=== PATIENT | male | born 1940 | race Caucasian/White ===

== ENCOUNTER 2020-05-17 09:48 | Outpatient (CLI) | payer MEDICARE, SELFPAY | END 2020-05-17 09:49 | disposition home or self-care (01) | LOC: ANHCOVIDVC 09:48 | PROVIDERS: PCP Internal Medicine | DX: Z23 Encounter for immunization (principal) | CPT/HCPCS: 0001A; 91300 ==

== ENCOUNTER 2020-06-07 09:47 | Outpatient (CLI) | payer MEDICARE, SELFPAY | END 2020-06-07 09:48 | disposition home or self-care (01) | LOC: ANHCOVIDVC 09:47 | PROVIDERS: PCP Internal Medicine | DX: Z23 Encounter for immunization (principal) | CPT/HCPCS: 0002A; 91300 ==

== ENCOUNTER 2020-07-09 12:57 | Outpatient (CLI) | payer MEDICARE, SELFPAY | END 2020-07-09 12:58 | disposition home or self-care (01) | LOC: ANHAUDIO 12:58 | PROVIDERS: PCP Internal Medicine; Visit Provider Otolaryngology | DX: H90.42 Sensorineural hearing loss, unilateral, left ear, with unrestricted hearing on the contralateral side (principal) | CPT/HCPCS: 92557; 92567 ==

== ENCOUNTER 2021-10-03 14:26 | Outpatient (CLI) | payer MEDICARE, SELFPAY ==
--- NOTE | 2021-10-03 14:40 | ECHO_ITS ---
Patient Info Name: Hubert Finnegan Age: 81 years : 1940 Gender: Male Ht: 70 in Wt: 170 lbs BSA: 1.96 m2 HR: 71 bpm BP: 133 / 54 mmHg Technical Quality: Good Exam Date: 10/03/2021 2:55 PM Exam Location: [facility] Patient Status: Outpatient Admit Date: 10/03/2021 Staff Ordering Physician: Guillermo Chappell DO Sales Advisor: Nata Garduno RDCS Attending Provider: Guillermo Chappell DO Referring Physician: Ta BURCH; Exam Type: CA echo doppler color flow Study Info Indications I35.0 - Nonrheumatic aortic (valve) stenosis Complete two-dimensional, color flow and Doppler transthoracic echocardiogram is performed. Summary 1. Complete two-dimensional, color flow and Doppler transthoracic echocardiogram is performed. 2. Left ventricular chamber dimension is normal. 3. Left ventricular systolic function is normal, estimated at 65-70%. 4. The left ventricular diastolic function is grade I diastolic dysfunction. 5. E/e' 14 is mildly elevated. 6. Global longitudinal strain is normal at -17.3%. 7. Left atrial chamber dimension is severely enlarged. 8. There is moderate aortic valve sclerosis. 9. There is mild aortic valve stenosis with a peak velocity of 230 cm/s, mean gradient of 11 mmHg, and aortic valve area of 1.8 cm2. 10. There is mild mitral valve regurgitation. 11. There is mild tricuspid valve regurgitation. 12. No pulmonary hypertension, estimated pulmonary arterial systolic pressure is 36 mmHg. Left Ventricle E/e' 14 is mildly elevated. Global longitudinal strain is normal at -17.3%. Left ventricular chamber dimension is normal. Left ventricular systolic function is normal, estimated at 65-70%. The left ventricular diastolic function is grade I diastolic dysfunction. Right Ventricle Right ventricular systolic function is normal and with normal TAPSE 2.5 cm. Right ventricular chamber dimension is normal. Left Atria Left atrial chamber dimension is severely enlarged. Right Atria Right atrial chamber dimension is normal. Aortic Valve The aortic valve is trileaflet. There is moderate aortic valve sclerosis. There is mild aortic valve stenosis with a peak velocity of 230 cm/s, mean gradient of 11 mmHg, and aortic valve area of 1.8 cm2. There is trace aortic valve regurgitation. Pulmonic Valve There is no pulmonic regurgitation. Mitral Valve There is no mitral valve stenosis. There is mild mitral valve regurgitation. Tricuspid Valve There is mild tricuspid valve regurgitation. No pulmonary hypertension, estimated pulmonary arterial systolic pressure is 36 mmHg. Pericardium/Pleural There is no pericardial effusion. Inferior Vena Cava Normal inferior vena cava with >50% collapse upon inspiration consistent with normal right atrial pressure, 5 mmHg. Aorta The aortic root size at the sinus of Valsalva is normal. Left Ventricular Outflow Tract Name Value Normal LVOT 2D LVOT Diameter 2.0 cm LVOT Doppler LVOT Peak Gradient 7 mmHg LVOT Mean Gradient 4 mmHg LVOT VTI 30 cm LVOT VT
== END 2021-10-03 14:27 | disposition home or self-care (01) ==
PROVIDERS: PCP Internal Medicine; Visit Provider Internal Medicine Cardiovascular Disease
DX: I35.1 Nonrheumatic aortic (valve) insufficiency (principal); I36.1 Nonrheumatic tricuspid (valve) insufficiency; I34.0 Nonrheumatic mitral (valve) insufficiency
CPT/HCPCS: 93306

== ENCOUNTER 2022-05-07 00:44 | Day surgery (SDC) | payer MEDICARE, SELFPAY ==
[2022-05-06 15:14] VITALS: BMI 24.4
--- NOTE | ~2022-05-07 | BM_ITS ---
EXAMINATION: CCL bone marrow asp w bx diag DATE: 05/07/2022 10:31 INDICATION: Multiple myeloma with relapse. TECHNIQUE: A time-out was performed to verify the patient's name, date of , and procedure to b e performed. The procedure including the risks, benefits, and alternatives was discussed with the pat ient. Risks discussed included bleeding and infection. The patient understood the risks and agreed to proceed. The skin overlying the left ilium was prepped and draped in usual sterile fashion. Anesth etic was administered with 1% lidocaine subcutaneously. Moderate sedation was achieved with 1 mg Vers ed IV and 50 mg fentanyl IV. An 11 gauge needle was inserted into the ilium with fluoroscopic guidan ce. Bone marrow was aspirated. An 8 gauge needle was then inserted into the ilium with fluoroscopic g uidance. A core bone marrow biopsy was obtained. There were no immediate complications. Fluoroscopy e xposure time was 0.0 minutes. The total number of images was 8. FINDINGS: Real-time fluoroscopy demonstrates a marker overlying the left posterior superior iliac spi ne. IMPRESSION: 1. Fluoro-guided bone marrow aspiration. 2. Fluoro-guided bone marrow core biopsy. Reviewed, dictated and finalized at location A. [facility]
[2022-05-07 09:10] VITALS: BP 152/66; PULSE 67; RESP 12; TEMP 36.6; O2SAT 99; BMI 22.4
[2022-05-07 09:12] LABS: Basophils Percent Auto 0.6 % (0.2-1.2); Eosinophils Absolute Auto 0.2 K/mm3 (0-0.3); Eosinophils Percent Auto 2.2 % (0-4.4); Hematocrit 22.7 % (42.0-52.0); Hemoglobin 7.4 g/dL (14.0-18.0); Immature Granulocyte Absolute 0.02 K/mm3 (0.00-0.031); Immature Granulocyte Percent A 0.3 % (0-0.5); Immature Platelet Fraction Pct 5.6 % (0.9-11.2); Lymphocytes Percent Auto 20.5 % (18.3-44.2); Mean Corpuscular HGB Conc 32.6 g/dl (32-36); Mean Corpuscular Hemoglobin 29.7 pg (26-34); Mean Corpuscular Volume 91.2 fl (80-100); Mean Platelet Volume 11.5 fl (7.4-10.4); Monocytes Absolute Auto 0.8 K/mm3 (0.1-0.6); Monocytes Percent Auto 11.1 % (2.6-8.5); Neutrophils Absolute Auto 4.5 K/mm3 (1.3-6.7); Neutrophils Percent Auto 65.3 % (45.5-73.1); Platelet Count Result 96 k/mm3 (150-375); Red Blood Count 2.49 M/mm3 (4.6-6.20); Red Cell Distribution Width 13.8 % (11.5-14.5); White Blood Count 6.8 K/mm3 (4.5-10.0)
[2022-05-07 09:24] LABS: INR 1.1; Prothrombin Time 13.5 Seconds (11.1-14.7)
--- NOTE | 2022-05-07 09:40 | WPDMODSED ---
Moderate Sedation Note-Pt Data Patient Data Diagnosis: Multiple myeloma. Present Complaint: Multiple myeloma. Procedure to be performed/Plan: Fluoro-guided bone marrow biopsy of ilium. Allergies Allergy/AdvReac Type Severity Reaction Status Date / Time pioglitazone Allergy Mild rash Verified 05/07/22 09:08 latex Allergy Unknown Verified 05/07/22 09:08 Sulfa (Sulfonamide Allergy Rash Verified 05/07/22 09:08 Antibiotics) Home Medications Medication Instructions Recorded Confirmed Type oxybutynin chloride 15 mg 15 mg PO DAILY 03/29/19 05/06/22 History tablet,extended release 24 hr ascorbate calcium (vitamin C) 500 500 mg PO DAILY 04/04/19 05/06/22 History mg tablet multivitamin 1 tablet PO DAILY 04/04/19 05/06/22 History cholecalciferol (vitamin D3) 50 2,000 unit PO DAILY 10/11/19 05/06/22 History mcg (2,000 unit) capsule latanoprost 0.005 % eye drops 1 drop ophthalmic (eye) QPM 10/11/19 05/06/22 History leuprolide 7.5 mg (1 month) See Rx Instructions .Route .COMPLEX 06/15/20 05/06/22 History subcutaneous syringe (Eligard) amlodipine 5 mg tablet 5 mg PO DAILY #90 tabs 09/17/20 05/06/22 Rx carvedilol 12.5 mg tablet See Rx Instructions .Route 03/06/21 05/07/22 Rx .COMPLEX #180 tabs pravastatin 10 mg tablet See Rx Instructions .Route 06/10/21 05/06/22 Rx .COMPLEX #90 tabs lisinopril 40 mg tablet See Rx Instructions .Route 01/16/22 05/07/22 Rx .COMPLEX #180 tabs flash glucose sensor (FreeStyle #6 ea 01/21/22 05/06/22 Rx Mark 2 Sensor kit) lancets 33 gauge (OneTouch Delica #100 ea 01/21/22 05/06/22 Rx Lancets) OneTouch Verio test strips (blood #100 ea 01/22/22 05/06/22 Rx sugar diagnostic) glipizide 5 mg tablet 5 mg PO BID 90 days #180 tabs 01/22/22 05/06/22 Rx esomeprazole magnesium 40 mg See Rx Instructions .Route 02/10/22 05/06/22 Rx capsule,delayed release .COMPLEX #90 caps pramipexole 0.125 mg tablet See Rx Instructions .Route 02/10/22 05/06/22 Rx .COMPLEX #90 tabs tramadol 50 mg tablet 50 mg PO BID PRN pain #60 tabs 03/14/22 05/06/22 Rx cyanocobalamin (vitamin B-12) 1,000 mcg PO DAILY 05/06/22 05/06/22 History 1,000 mcg tablet ferrous sulfate 325 mg (65 mg 325 mg PO EVERY OTHER DAY 05/06/22 05/06/22 History iron) tablet (FeroSul) Sedation/Anesthesia: No previous sedation/anesthesia problems (including family history). [facility] Past Medical History Medical History At risk for polypharmacy Bilateral impacted cerumen CKD stage G3a/A3, GFR 45-59 and albumin creatinine ratio >300 mg/g COVID-19 vaccine series completed Diabetes Dietary counseling and surveillance Dyslipidemia Encounter to establish care Essential hypertension Heart disease Heart murmur Hypertension associated with stage 3 chronic kidney disease due to type 2 diabetes mellitus Iron deficiency anemia, unspecified Mixed hyperlipidemia Non-recurrent unilateral inguinal hernia without obstruction or gangrene Osteoarthritis of spine with radiculopathy, lumbar region Pain in left hip Preop cardiovascular exam Prostate cancer screening Pulmonary hypertension RLS (restless legs syndrome) Type 2 diabetes mellitus without complication Surgical History Surgical History History of hernia repair Family History Family History Mother Family history of pancreatic cancer Patient's mother is Family history of malignant neoplasm Diabetes mellitus Hypertension Heart disease Sibling Family history of pancreatic cancer Family history of malignant neoplasm of breast in first degree relative Father Family history of coronary artery disease Cerebrovascular accident Social History Social History Smoking packs per day: 0.5 Smoking cigarettes per day: 10.0 Years smo
[2022-05-07 10:30] VITALS: BP 148/74; PULSE 67; RESP 16; O2SAT 100
[2022-05-07 10:45] VITALS: BP 126/57; PULSE 59; RESP 18; O2SAT 98
[2022-05-07 11:00] VITALS: BP 119/58; PULSE 66; RESP 17; O2SAT 98
[2022-05-07 11:15] VITALS: BP 120/51; PULSE 62; RESP 16; O2SAT 96
[2022-05-07 11:30] VITALS: BP 114/59; PULSE 62; RESP 16; O2SAT 95
== END 2022-05-07 12:08 | disposition home or self-care (01) ==
PROVIDERS: PCP Nurse Practitioner Family; Visit Provider Radiology Diagnostic Radiology
DX: C90.02 Multiple myeloma in relapse (principal); I13.10 Hypertensive heart and chronic kidney disease without heart failure, with stage 1 through stage 4 chronic kidney disease, or unspecified chronic kidney disease; E11.22 Type 2 diabetes mellitus with diabetic chronic kidney disease; N18.31 Chronic kidney disease, stage 3a; D50.9 Iron deficiency anemia, unspecified; E78.2 Mixed hyperlipidemia; G25.81 Restless legs syndrome; I27.20 Pulmonary hypertension, unspecified; Z79.84 Long term (current) use of oral hypoglycemic drugs; Z79.818 Long term (current) use of other agents affecting estrogen receptors and estrogen levels; F17.220 Nicotine dependence, chewing tobacco, uncomplicated
CPT/HCPCS: 36415; 38222; 85025; 85055; 85610; 88184; 88185; 88305; 88311; 88313; 88360; J1642; J2250; J3010; J7040

== ENCOUNTER 2022-06-02 09:30 | Outpatient (CLI) | payer MEDICARE, SELFPAY ==
--- NOTE | ~2022-06-02 | XR_ITS ---
EXAMINATION: BONE SURVEY/METASTATIC SURVEY DATE: 06/02/2022 INDICATION: Multiple myeloma relapse TECHNIQUE: A skeletal survey was performed including AP views of the chest, abdomen and pelvis; AP an d lateral/lateral swimmers views of the cervical, thoracic and lumbar spine; lateral view of the skul l, and AP and lateral views of the appendicular skeleton excluding the hands and feet. COMPARISON: 01/30/2014 FINDINGS: There are lytic areas in the shaft of the left fibula, and to a lesser degree in the right fibula, which appear new since the comparison examination. Tiny lytic areas in the skull and right sc apula appears stable. The medullary spaces of the left radius and ulna have a somewhat mottled appear ance when compared to the prior examination. There is severe spondylosis of the spine. The lungs are free of acute opacities. The cardiomediastinal silhouette is normal. A moderate volume of colonic sto ol is present. IMPRESSION: 1. Lytic areas in the shafts of the left right fibula and mottled appearance in the medullary spaces of the left radius and ulna which could reflect myeloma relapse. Reviewed, dictated and finalized at location F. IMPRESSION: 1. Lytic areas in the shafts of the left right fibula and mottled appearance in the medullary spaces of the left radius and ulna which could reflect myeloma r elapse.
== END 2022-06-02 09:31 | disposition home or self-care (01) ==
PROVIDERS: Visit Provider Internal Medicine Hematology & Oncology
DX: C90.02 Multiple myeloma in relapse (principal)
CPT/HCPCS: 36415; 77075; 80047; 80053; 84443; 85025; 96372; 96401; A9270; J0897; J9041

== ENCOUNTER 2022-07-03 08:56 | Inpatient (IN) | payer MEDICARE, SELFPAY ==
[2022-07-03] VITALS (39 sets, daily range): BP systolic 127–191; BP diastolic 55–81; PULSE 47–69; RESP 10–25; TEMP 36.5–36.6; O2SAT 96–100; BMI 20.7
--- NOTE | ~2022-07-03 | CT_ITS ---
EXAMINATION: CT abdomen pelvis w con INDICATION: Left lower quadrant pain, rectal bleeding TECHNIQUE: Computed tomographic images of the abdomen and pelvis were obtained after the administrati on of 100 cc of Omnipaque 350 intravenous contrast. The dose-length product (DLP) was 316.91 mGy-cm. Automated exposure control and iterative reconstruction technique were employed. COMPARISON: 07/06/2018 FINDINGS: Minimal dependent atelectasis is present in the lung bases. The heart size is normal. Calci fied nodules of the left lower lobe likely reflect old granulomatous disease. Punctate calcifications in an otherwise normal spleen likely represent healed granulomatous disease. The liver, pancreas, ga llbladder, and adrenal glands are normal. There is mild hydronephrosis of the right kidney. There is an irregular mass involving the posterior lateral wall and approximating the right ureteral orifice. There is severe lumbar spondylosis. There is a 3.9 cm cyst of left kidney. There is calcified atheros clerosis of the aorta and many of the other arteries. No pathologically enlarged abdominal or pelvic lymph nodes are identified. There is severe lumbar spondylosis. IMPRESSION: 1. Irregular mass of the posterior bladder wall, extending to the right ureteral orifice and causing mild right hydronephrosis, concerning for urothelial carcinoma. Urologic evaluation is recommended. Reviewed, dictated and finalized at location L. IMPRESSION: 1. Irregular mass of the posterior bladder wall, extending to the right uretera l orifice and causing mild right hydronephrosis, concerning for urothelial carc inoma. Urologic evaluation is recommended.
--- NOTE | 2022-07-03 09:18 | ECG_ITS ---
Measurements Intervals [place] Rate: 68 P: 214 IL: 145 QRS: 234 QRSD: 100 T: 110 QT: 419 QTc: 447 Interpretive Statements SINUS RHYTHM WITH OCCASIONAL SUPRAVENTRICULAR PREMATURE COMPLEXES ARM LEADS REVERSED COMPARED TO ECG 07/16/2018 13:33:44 SINUS RHYTHM NOW PRESENT LEAD MISPLACEMENT PRESENT Electronically Signed On 07-03-2022 11:57:04 CDT by Addison David M.D.
--- NOTE | 2022-07-03 09:20 | ED.GIBLEED ---
HPI - GI Bleed General Chief complaint: GI Bleed <Rima Aaron PA-C - Last Filed: 07/03/22 13:06> Stated complaint: rectal bleeding <Rima Aaron PA-C - Last Filed: 07/03/22 13:06> Time Seen by Provider: 07/03/22 09:02 <Rima Aaron PA-C - Last Filed: 07/03/22 13:06> History of Present Illness HPI Narrative: 81-year-old male with a history of multiple myeloma, prostate cancer, diabetes, hypertension here for evaluation of weakness and syncope. Patient states over the past several days he has felt unwell, particularly with position changes. States he feels weak and lightheaded when he stands up. Today when he stood up he passed out. When EMS found him there was a large amount of blood near his rectum, was found to be profoundly orthostatic, when they stood him up his blood pressure dropped to the 70s systolic and he nearly syncopized again. Patient denies any blood mixed in his stools over the past several days. He has a crampy diffuse abdominal pain has been there since he started to feel weak in addition to some nausea. He denies any chest pain, shortness of breath, fevers or chills. He does not take blood thinners. No history of GI bleeds. Denies any head injury in the falls. <Rima Aaron PA-C - Last Filed: 07/03/22 13:06> Related Data Home medications: Home Medications Medication Instructions Recorded Confirmed oxybutynin chloride 15 mg 15 mg PO DAILY 03/29/19 07/03/22 tablet,extended release 24 hr cholecalciferol (vitamin D3) 50 2,000 unit PO DAILY 10/11/19 07/03/22 mcg (2,000 unit) capsule latanoprost 0.005 % eye drops 1 drop ophthalmic (eye) QPM 10/11/19 07/03/22 cyanocobalamin (vitamin B-12) 1,000 mcg PO DAILY 05/06/22 07/03/22 1,000 mcg tablet ferrous sulfate 325 mg (65 mg 325 mg PO DAILY 05/06/22 07/03/22 iron) tablet (FeroSul) acyclovir 400 mg tablet 400 mg PO BID 07/03/22 07/03/22 aspirin 81 mg capsule 81 mg PO DAILY 07/03/22 07/03/22 dexamethasone 4 mg tablet 20 mg PO QAM 07/03/22 07/03/22 fluconazole 100 mg tablet 100 mg PO DAILY 07/03/22 07/03/22 glipizide 5 mg tablet 2.5 mg PO TIDWM 07/03/22 07/03/22 lenalidomide 25 mg capsule 25 mg PO DAILY 07/03/22 07/03/22 (Revlimid) ondansetron HCl 8 mg tablet 8 mg PO TID PRN Nausea And Vomiting 07/03/22 07/03/22 <Rima Aaron PA-C - Last Filed: 07/03/22 13:06> Allergies/Adverse reactions: Allergies Allergy/AdvReac Type Severity Reaction Status Date / Time pioglitazone Allergy Mild rash Verified 07/03/22 09:15 latex Allergy Unknown Verified 07/03/22 09:15 Sulfa (Sulfonamide Allergy Rash Verified 07/03/22 09:15 Antibiotics) <Rima Aaron PA-C - Last Filed: 07/03/22 13:06> Review of Systems Review of Systems: Gen.: Reports syncope and weakness. Denies fevers or chills Eyes: Denies eye pain or visual change ENT: Denies congestion Respiratory: Denies shortness of breath or cough CV: Denies chest pain or palpitations GI: Reports GI bleeding. Denies abdominal pain nausea, emesis or diarrhea denies burning, urgency, frequency or hematuria Musculoskeletal: Denies back pain or muscle pain Neuro: Denies numbness, tingling, weakness or focal weakness Skin: Denies rash Except as documented, all other systems reviewed and negative <KIANA Castellanos Last Filed: 07/03/22 13:06> [facility] Past Medical History Medical History: Medical History Chronic anemia Chronic kidney disease, stage 3 Dyslipidemia Essential hypertension Heart disease Heart murmur Mixed hyperlipidemia Multiple myeloma (01/2014) Relapsed May 2022. Followed by Dr. Galeas. Osteoarthritis of spine with radiculopathy, lumbar region Prostate cancer (07/2018) Pulmonary hypertension Type 2 diabetes mellitus <Rima Aaron PA-C - Last Filed: 07/03/22 13:06> Surgical History Surgical History:
[2022-07-03 09:37] LABS: Basophils Percent Auto 0.3 % (0.2-1.2); Eosinophils Percent Auto 0.7 % (0-4.4); Immature Granulocyte Absolute 0.11 K/mm3 (0.00-0.031); Immature Granulocyte Percent A 1.8 % (0-0.5); Immature Platelet Fraction Pct 21.7 % (0.9-11.2); Lymphocytes Absolute Auto 0.42 K/mm3 (0.9-3.2); Mean Corpuscular HGB Conc 34.5 g/dl (32-36); Mean Corpuscular Hemoglobin 31.3 pg (26-34); Mean Corpuscular Volume 90.8 fl (80-100); Mean Platelet Volume 14.4 fl (7.4-10.4); Monocytes Absolute Auto 0.8 K/mm3 (0.1-0.6); Monocytes Percent Auto 12.9 % (2.6-8.5); Neutrophils Absolute Auto 4.6 K/mm3 (1.3-6.7); Neutrophils Percent Auto 77.3 % (45.5-73.1); Nucleated Red Blood Cells Perc 0.3 % (0.0-0.2); Platelet Count Result 36 k/mm3 (150-375); Red Blood Count 2.17 M/mm3 (4.6-6.20); Red Cell Distribution Width 14.8 % (11.5-14.5)
[2022-07-03 09:42] LABS: Alanine Aminotransferase 23 U/L (6-50); Alkaline Phosphatase 54 U/L (38-126); Anion Gap 8 mmol/L (8-16); Aspartate Amino Transferase 17 U/L (17-59); Bilirubin,Total 0.5 mg/dL (0.2-1.3); Blood Urea Nitrogen 40 mg/dL (9-20); Calcium 7.6 mg/dL (8.4-10.2); Carbon Dioxide 18 mmol/L (22-30); Chloride 106 mmol/L (98-107); Estimated CRCL calculation 32 ml/min; Estimated Glomerular Filt Rate 45; Glucose 195 mg/dL (65-110); Lipase 120 U/L (23-300); Magnesium 1.8 mg/dL (1.6-2.3); Potassium 4.2 mmol/L (3.4-5.0); Sodium 132 mmol/L (137-145)
[2022-07-03 09:50] LABS: INR 1.1; Partial Thromboplastin Time 24.1 SECONDS (22.3-36.8); Prothrombin Time 14.6 Seconds (11.1-14.7)
[2022-07-03 09:53] LABS: Hematocrit 19.7 % (42.0-52.0); Hemoglobin 6.8 g/dL (14.0-18.0)
[2022-07-03 10:00] LABS: Platelet Estimate Decreased (Adequate)
[2022-07-03 10:02] LABS: Crenated RBC 1+ (NORMAL); Microcytosis 2+ (NORMAL); Ovalocytes 1+ (NORMAL); Schistocytes None Seen (NORMAL)
--- NOTE | 2022-07-03 11:27 | PC.NURSE ---
consent for blood signed by pt
--- NOTE | 2022-07-03 11:55 | PC.NURSE ---
straight cath done at 1140, 200mL, yellow/cloudy
[2022-07-03 12:08] LABS: Appearance Urine Cloudy (Clear); Bacteria Urine None Seen /hpf; Bilirubin Urine Negative (Negative); Blood Urine 3+ (Negative); Color Urine Yellow (Yellow); Glucose Urine UA Trace mg/dL (Negative); Hyaline Casts Urine Present /lpf; Ketones Urine Negative (Negative); Leukocyte Esterase Ur 2+ LEU/UL (Negative); Need Manual Microscopic Reviewed; Nitrate Urine Negative (Negative); Protein Urine Trace mg/dL (Negative); RBC Urine 21-50 /hpf (0-2); Specific Grav Ur 1.026 (1.001-1.035); Squamous Epithelial Cell Urine None seen /hpf (Few); Urobilinogen Urine 0.2 mg/dL (<2.0)
[2022-07-03 12:15] LABS: Add Urine Microscopic? YES
--- NOTE | 2022-07-03 13:06 | PM.IMHP ---
H&P: HPI History of Present Illness Date/Time: 07/03/22 13:30 Chief Complaint: Rectal bleeding. Narrative: This is a very pleasant 81-year-old male with hypertension, hyperlipidemia, type 2 diabetes mellitus, multiple myeloma, prostate cancer, GERD, and other comorbidities who presented to the emergency department from home for evaluation of rectal bleeding. The patient provides the following history. He had a relapse of his multiple myeloma in May 2022 and he has been started back on chemotherapy. With his treatments he admits that he has been feeling weak though he has been increasingly weak over the last several days. His appetite has been poor though he has not had any nausea or vomiting. He has been passing a couple of loose stools a day for approximately 1 week which he described as brownish east in color. He has been getting lightheaded and dizzy when standing and today he had a near syncopal episode. It does not sound as though he fell but he had a near fall and at that time he was incontinent of bright red blood per rectum. He has also been getting fatigued with minimal exertion and is short of breath with exertion as well. EMS was summoned and on their arrival he was profoundly orthostatic (160/20 --> 70/palp) and he had a brief loss of consciousness when he sat upright. He denies fever, chills, sweats, cold and flu symptoms, chest and pleuritic pain, epigastric and abdominal pain, bloating, belching, and dysuria. Hemoglobin was 6.8 on arrival, down from 7.3 on labs taken a few days ago. He is currently being transfused 2 units of packed red blood cells and he is resting in bed comfortably. He has no current complaints. Review of Systems Review of Systems: Twelve systems were reviewed. He has lost quite a bit of weight over the years, he was always pretty steady around 210 to 220 lb, now he ranges between 140 to 150 lb. He has been increasingly weak and will walk with a cane or walker occasionally uses a wheelchair, specially when out of the home. No fever, chills, or sweats. No headache or neck ache. No cold or flu symptoms. No cough. No sick contacts. He denies dysuria. No hematuria. No significant abdominal discomfort. Except as documented, all other systems were reviewed and are negative. [facility] Past Medical History Medical History Chronic anemia Chronic kidney disease, stage 3 Dyslipidemia Essential hypertension Heart disease Heart murmur Mixed hyperlipidemia Multiple myeloma (01/2014) Relapsed May 2022. Followed by Dr. Galeas. Osteoarthritis of spine with radiculopathy, lumbar region Prostate cancer (07/2018) Pulmonary hypertension Type 2 diabetes mellitus Surgical History Surgical History History of cataract extraction with lens replacement History of colonoscopy (03/2009) Screening colonoscopy per Dr. Nuno: internal hemorrhoids and sigmoid diverticulosis. 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 Family History Family History Mother Family history of pancreatic cancer Patient's mother is Family history of malignant neoplasm Diabetes mellitus Hypertension Heart disease Sibling Family history of pancreatic cancer Family history of malignant neoplasm of breast in first degree relative Father Family history of coronary artery disease Cerebrovascular accident Social History Social History (Updated 07/03/22 @ 20:21 by Zita Garcia PA-C) Social History: Surrogate medical decision maker: Eloina Finnegan, spouse. Code status: Full code. Smoking packs per day: 0.5
[2022-07-03 13:16] LABS: Lactate Dehydrogenase 159 U/L (120-246)
[2022-07-03 13:42] LABS: Iron 35 ug/dL (49-181)
[2022-07-03 13:52] LABS: Percent Iron Saturation 14 % (20-50)
[2022-07-03 14:22] LABS: Folic Acid 7.3 ng/mL (2.76->20); Vitamin B12 > 1000.0 pg/mL (239-931)
--- NOTE | 2022-07-03 14:44 | ADMGEN ---
This patient, Hubert Finnegan, was admitted to Medical Room 253-01. Patient/family oriented to hospital policies and general routines including ID bracelet, bed and alarms, visiting hours, pain management, procedures, bathroom and other care routines, personal items, smoking policy, room service/diet, and visiting hours. Information on how to activate the Rapid Response Team has been discussed. Patient/Family are encouraged to report perceived risks to care and to ask questions if they do not understand what they are told or what they should do.
--- NOTE | 2022-07-03 15:13 | WPDURCON ---
Assessment and Plan Assessment and plan (1) Bladder mass: Code(s): N32.89 - Other specified disorders of bladder Status: Acute Assessment and Plan: Keep NPO after midnight. I discussed with DR. Cho, he will likely cysto the patient in the office after discharge, however if he can do it with a TURBT/right retrograde pyelogram while hospitalized he may try tomorrow. We will make a decision tomorrow pending creatinine results. Creatinine is slightly elevated, patient has no pain and no hematuria is present. (2) Prostate cancer: Onset Date: 07/2018 Code(s): C61 - Malignant neoplasm of prostate Status: Acute Assessment and Plan: Managed in the office by Dr. Cho. Eligard 45mg injection on 05/29/22 PSA 05/29/22 0.05. Urology Consult Note HPI Date Seen: 07/03/22 Time Seen: 13:00 Requesting Physician: Nate Aguilar MD Primary Care Provider: Kristina Mccollum NP Consult Narrative Reason for consult: Bladder Mass with Extention into the Right Ureter with mild right hydro Narrative: Hubert Finnegan is a 81 year old male who presented to the ER today after a syncopal episode at home. He then noticed rectal bleeding. He was found to be anemic and is receiving blood transfusions in the ER. He is here with his son and . He is a patient of Dr. Cho who is being treated for prostate cancer. He was most recently seen in the office on 05/29/22 for an injection of Eligard and PSA screening which was 0.05. He denies hematuria, frequency, dysuria, urgency, difficulty with urination or flank pain. He was found incidentally on CT Scan to have an irregular bladder mass on the posterior bladder wall extending into the right ureteral opening with mild right hydronephrosis. His creatinine is 1.50 which is slightly elevated as compared to his previous creatinine in 01/28 at 1.20. WBC is 6.0 he is bradycardic. Review of Systems Cardiovascular: Cardiovascular: Denies chest pain Respiratory: Respiratory: Reports no additional respiratory complaints Gastrointestinal: Gastrointestinal: Denies abdominal pain, Reports hematochezia, Denies nausea and Denies vomiting Genitourinary: Genitourinary: Denies hematuria, Denies genital pain, Denies dysuria, Denies flank pain, Denies testicular pain, Denies urinary frequency, Denies urinary hesitancy, Denies urinary incontinence and Denies urinary urgency PENDING SALE TO [facility] Past Medical History Medical History Chronic anemia Chronic kidney disease, stage 3 Dyslipidemia Essential hypertension Heart disease Heart murmur Mixed hyperlipidemia Multiple myeloma (01/2014) Relapsed May 2022. Followed by Dr. Galeas. Osteoarthritis of spine with radiculopathy, lumbar region Prostate cancer (07/2018) Pulmonary hypertension Type 2 diabetes mellitus Surgical History Surgical History History of cataract extraction with lens replacement History of colonoscopy (03/2009) Screening colonoscopy per Dr. Nuno: internal hemorrhoids and sigmoid diverticulosis. 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 Family History Family History Mother Family history of pancreatic cancer Patient's mother is Family history of malignant neoplasm Diabetes mellitus Hypertension Heart disease Sibling Family history of pancreatic cancer Family history of malignant neoplasm of breast in first degree relative Father Family history of coronary artery disease Cerebrovascular accident Social History Social History (Reviewed 07/03/22 @ 15:29 by Miller Au
[2022-07-03] MEDS: SODIUM CHLORIDE 0.9% IV 1,000 ML 125 ML IV CONT (15:40)
--- NOTE | 2022-07-03 17:04 | WPDGICN ---
Assessment and Plan Assessment and plan (1) Acute on chronic anemia: Code(s): D64.9 - Anemia, unspecified Status: Acute Assessment and Plan: multifactorial, he already has anemia from MM and seeing hematology, also on chemotherapy report of more weakness and orthostasis also noted rectal bleeding will proceed with scopes (2) GI bleed: Code(s): K92.2 - Gastrointestinal hemorrhage, unspecified Status: Acute Assessment and Plan: monitor (3) Multiple myeloma: Onset Date: 01/2014 Qualifiers: Multiple myeloma remission status: not in remission Qualified Code(s): C90.00 - Multiple myeloma not having achieved remission Code(s): C90.00 - Multiple myeloma not having achieved remission Status: Acute Assessment and Plan: baseline hb mid 7 will get blood transfusion scopes in am (4) Orthostatic hypotension: Code(s): I95.1 - Orthostatic hypotension Status: Acute Assessment and Plan: on fluids (5) Chronic kidney disease, stage 3: Code(s): N18.30 - Chronic kidney disease, stage 3 unspecified Status: Acute (6) Bladder mass: Code(s): N32.89 - Other specified disorders of bladder Status: Acute Assessment and Plan: urology planning to evaluate lesion GI Consult Note Consult date/time: 07/03/22 17:04 Reason for consult: rectal bleeding, syncope HPI: Hubert Finnegan is a 81 year old male with history of chronic anemia with multiple myeloma (diagnosed 2013 but relapsed recently after new BM biopsy last month- started again on VRD chemotherapy), prostate cancer, diabetes, hypertension. He has been dealing with alternating constipation and diarrhea and lately with progressive weakness and near syncope after standing up.? Lately he feels weak and lightheaded when he stands up, day of admission actually he passed out and EMS found large amount of blood near his rectum, was orthostatic. He has a crampy diffuse abdominal pain and nausea. Had colonoscopy but he thinks many years ago. CT scan reviewed and showed Irregular mass of the posterior bladder wall, extending to the right ureteral orifice and causing mild right hydronephrosis, concerning for urothelial carcinoma. Review of Systems Constitutional: Constitutional: Reports fatigue and Reports lethargy Eyes: Eyes: Denies blurry vision ENT: Comments: hard of hearing Cardiovascular: Cardiovascular: Denies chest pain Respiratory: Respiratory: Reports dyspnea on exertion Gastrointestinal: Gastrointestinal: Reports abdominal pain and Reports hematochezia Musculoskeletal: Musculoskeletal: Denies stiffness Integumentary/Breasts: Skin/Breast: Denies rash Neurologic: Denies Abnormal speech present Psychiatric: Psychiatric: Denies behavioral changes [facility] Past Medical History Medical History Chronic anemia Chronic kidney disease, stage 3 Dyslipidemia Essential hypertension Heart disease Heart murmur Mixed hyperlipidemia Multiple myeloma (01/2014) Relapsed May 2022. Followed by Dr. Galeas. Osteoarthritis of spine with radiculopathy, lumbar region Prostate cancer (07/2018) Pulmonary hypertension Type 2 diabetes mellitus Surgical History Surgical History History of cataract extraction with lens replacement History of colonoscopy (03/2009) Screening colonoscopy per Dr. Nuno: internal hemorrhoids and sigmoid diverticulosis. 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 Family History Family History Mother Family history of pa
[2022-07-03] MEDS: BISACODYL 5 MG TABLET EC 20 MG PO (17:55)
[2022-07-03] MEDS: polyethylene glycoL 3350 238 GM BOTTLE PO (18:34)
[2022-07-04] VITALS (18 sets, daily range): BP systolic 127–178; BP diastolic 52–82; PULSE 54–82; RESP 16–22; TEMP 36–36.9; O2SAT 97–100
--- NOTE | 2022-07-04 00:22 | PC.NURSE ---
Bowel prep completed at 0010
[2022-07-04 00:27] LABS: Glucose Point of Care 136 mg/dl (65-105)
[2022-07-04] MEDS: SODIUM CHLORIDE 0.9% IV 1,000 ML 125 ML IV CONT (05:29)
[2022-07-04 05:46] LABS: Glucose Point of Care 95 mg/dl (65-105)
[2022-07-04] MEDS: polyethylene glycoL 3350 238 GM BOTTLE PO (06:46)
[2022-07-04 08:41] LABS: Basophils Percent Auto 0.4 % (0.2-1.2); Eosinophils Absolute Auto 0.1 K/mm3 (0-0.3); Eosinophils Percent Auto 1.3 % (0-4.4); Hematocrit 22.9 % (42.0-52.0); Hemoglobin 7.7 g/dL (14.0-18.0); Immature Granulocyte Absolute 0.08 K/mm3 (0.00-0.031); Immature Granulocyte Percent A 1.5 % (0-0.5); Immature Platelet Fraction Pct 24.8 % (0.9-11.2); Lymphocytes Absolute Auto 0.61 K/mm3 (0.9-3.2); Lymphocytes Percent Auto 11.2 % (18.3-44.2); Mean Corpuscular HGB Conc 33.6 g/dl (32-36); Mean Corpuscular Hemoglobin 30.2 pg (26-34); Mean Corpuscular Volume 89.8 fl (80-100); Monocytes Absolute Auto 0.6 K/mm3 (0.1-0.6); Monocytes Percent Auto 11.6 % (2.6-8.5); Nucleated Red Blood Cells Perc 0.4 % (0.0-0.2); Platelet Count Result 26 k/mm3 (150-375); Red Blood Count 2.55 M/mm3 (4.6-6.20); Red Cell Distribution Width 16.1 % (11.5-14.5); White Blood Count 5.4 K/mm3 (4.5-10.0)
[2022-07-04 08:47] LABS: Anion Gap 4 mmol/L (8-16); Blood Urea Nitrogen 24 mg/dL (9-20); Calcium 7.1 mg/dL (8.4-10.2); Carbon Dioxide 22 mmol/L (22-30); Chloride 108 mmol/L (98-107); Estimated CRCL calculation 43 ml/min; Estimated Glomerular Filt Rate > 60; Glucose 126 mg/dL (65-110); Magnesium 1.8 mg/dL (1.6-2.3); Sodium 134 mmol/L (137-145)
--- NOTE | 2022-07-04 09:23 | PC.NURSE ---
Also spoke with GI lab about patient's current BM status, liquid brown stool. Will follow-up closer to procedure time
--- NOTE | 2022-07-04 09:23 | PC.NURSE ---
Spoke to Andreina in GI lab, she would like me to give morning medications besides iron, hold 0900 ferrous sulfate. Patient to drink as much prep as he can before 1000. NPO after 1000
[2022-07-04] MEDS: ACYCLOVIR 400 MG TABLET PO ×2 (09:29→21:00)
[2022-07-04] MEDS: PRAMIPEXOLE 0.125 MG TABLET BY MOUTH (09:29)
[2022-07-04] MEDS: FLUCONAZOLE 100 MG TABLET PO (09:29)
[2022-07-04 09:31] LABS: Hemoglobin A1C 7.4 % (<5.7)
--- NOTE | 2022-07-04 11:29 | PC.NURSE ---
On 07/04/22, the student, [Angela Arrieta], provided care and completed [facility] documentation on this patient. I have reviewed the student's documentation and agree with the findings.
[2022-07-04 12:06] LABS: Glucose Point of Care 105 mg/dl (65-105)
--- NOTE | 2022-07-04 12:30 | PC.NURSE ---
Spoke with GI lab to let them know patient is still having multiple large brown liquid stools. Did finish prep before 1000 as asked. GI lab confirmed that patient would still come down for procedure scheduled fro 1445.
[2022-07-04] MEDS: LACTATED RINGERS 1,000 ML 150 ML IV CONT (13:10)
[2022-07-04 13:13] LABS: Glucose Point of Care 100 mg/dl (65-105)
--- NOTE | 2022-07-04 13:13 | WPDANESEPPF ---
Anes - Initial Pre Proc Eval Procedure: Operation Date: 07/04/22 15:15 Proposed Procedures p Esophagogastroduodenoscopy & Colonoscopy - Miky Bright MD Date/Time: 07/04/22 13:13 Surgeon: Nate Aguilar MD Pre Op Diagnosis: GI BLEED Patient Data Age: 81 Gender: M Height: 1.75 m Weight: 63.4 kg Last Vital Signs Temp 36.4 C 07/04/22 08:00 Pulse 66 07/04/22 12:00 Resp 18 07/04/22 08:00 BP 154/56 H 07/04/22 08:00 Pulse Ox 100 07/04/22 08:00 O2 Del Method Room Air 07/04/22 09:55 Allergies Allergy/AdvReac Type Severity Reaction Status Date / Time pioglitazone Allergy Mild rash Verified 07/04/22 13:13 latex Allergy Unknown Verified 07/04/22 13:13 Sulfa (Sulfonamide Allergy Rash Verified 07/04/22 13:13 Antibiotics) Home Medications Medication Instructions Recorded Confirmed Type oxybutynin chloride 15 mg 15 mg PO DAILY 03/29/19 07/03/22 History tablet,extended release 24 hr cholecalciferol (vitamin D3) 50 2,000 unit PO DAILY 10/11/19 07/03/22 History mcg (2,000 unit) capsule latanoprost 0.005 % eye drops 1 drop ophthalmic (eye) QPM 10/11/19 07/03/22 History lisinopril 40 mg tablet See Rx Instructions .Route 01/16/22 07/03/22 Rx .COMPLEX #180 tabs pramipexole 0.125 mg tablet See Rx Instructions .Route 02/10/22 07/03/22 Rx .COMPLEX #90 tabs tramadol 50 mg tablet 50 mg PO BID PRN pain #60 tabs 03/14/22 07/03/22 Rx cyanocobalamin (vitamin B-12) 1,000 mcg PO DAILY 05/06/22 07/03/22 History 1,000 mcg tablet ferrous sulfate 325 mg (65 mg 325 mg PO DAILY 05/06/22 07/03/22 History iron) tablet (FeroSul) pravastatin 10 mg tablet See Rx Instructions .Route 05/19/22 07/03/22 Rx .COMPLEX #90 tabs meclizine 12.5 mg tablet 12.5 mg PO TID PRN dizziness #90 06/25/22 07/03/22 Rx tabs acyclovir 400 mg tablet 400 mg PO BID 07/03/22 07/03/22 History aspirin 81 mg capsule 81 mg PO DAILY 07/03/22 07/03/22 History dexamethasone 4 mg tablet 20 mg PO QAM 07/03/22 07/03/22 History fluconazole 100 mg tablet 100 mg PO DAILY 07/03/22 07/03/22 History glipizide 5 mg tablet 2.5 mg PO TIDWM 07/03/22 07/03/22 History lenalidomide 25 mg capsule 25 mg PO DAILY 07/03/22 07/03/22 History (Revlimid) ondansetron HCl 8 mg tablet 8 mg PO TID PRN Nausea And Vomiting 07/03/22 07/03/22 History Laboratory Tests 07/03/22 07/03/22 07/04/22 09:26 12:44 00:03 WBC RBC Hgb Hct MCV MCH MCHC RDW Plt Count MPV Immature Gran % (Auto) Neut % (Auto) Lymph % (Auto) [place] % (Auto) Eos % (Auto) Baso % (Auto) Lymph # (Auto) [place] # (Auto) Eos # (Auto) Baso # (Auto) Abs Immat Gran (auto) Absolute Neuts (auto) Absolute Nucleated RBC Nucleated RBC % % Immature Plt Fraction Sodium Potassium Chloride Carbon Dioxide Anion Gap BUN Creatinine Estim Creat Clear Calc Estimated GFR Glucose POC Capillary Glucose 136 H mg/dl (65-105) Hemoglobin A1c Calcium Magnesium Iron 35 L ug/dL (49-181) TIBC 243 L ug/dL (265-497) % Saturation 14 L % (20-50) Ferritin 637.00 H ng/mL (11.1-264) Lactate Dehydrogenase 159 U/L (120-246) Vitamin B12 > 1000.0 H pg/mL (239-931) Folate 7.3 ng/mL (2.76->20) Blood Type A Positive Antibody Screen Negative Crossmatch See Detail 07/04/22 07/04/22 07/04/22 05:43 08:28 11:59 WBC 5.4 K/mm3 (4.5-10.0) RBC 2.55 L M/mm3 (4.6-6.20) Hgb 7.7 L g/dL
--- NOTE | 2022-07-04 13:25 | PC.NURSE ---
Spoke with about bringing patient's Revlimid from home. She will try and bring it tomorrow
--- NOTE | 2022-07-04 14:15 | SUR.OPER ---
Addendum entered by Romelia Qureshi RN 07/04/22 14:22: Only a Sigmoidoscopy was able to be performed due to fecal impaction. Original Note: EGD start 1410 end 141, Colonoscopy start 141
--- NOTE | 2022-07-04 14:29 | PM.IMPN ---
Progress Note: A&P Assessment and Plan (1) GI bleed: Code(s): K92.2 - Gastrointestinal hemorrhage, unspecified Status: Acute Assessment and Plan: Patient reports painless bright red blood per rectum this morning. Dr. Conteh has been consulted EGD and colonoscopy planned for today. H&H being monitored. (2) Acute on chronic anemia: Code(s): D64.9 - Anemia, unspecified Status: Acute Assessment and Plan: Baseline hemoglobin looks to be in the mid sevens. He will be transfused to a stable hemoglobin and H&H will be trended closely. (3) Bladder mass: Code(s): N32.89 - Other specified disorders of bladder Status: Acute Assessment and Plan: CT of the abdomen and pelvis shows a bladder wall mass. Dr. Cho has agreed to see patient in the office after he is discharged. Patient does not have any pain or hematuria at this time. (4) Thrombocytopenia: Code(s): D69.6 - Thrombocytopenia, unspecified Status: Chronic Assessment and Plan: Acute on chronic thrombocytopenia. Likely due to a combination of factors including multiple myeloma and recent chemotherapy. Continue to trend; no indication for transfusion at this time. (5) Chronic kidney disease, stage 3: Code(s): N18.30 - Chronic kidney disease, stage 3 unspecified Status: Chronic Assessment and Plan: Creatinine is stable when compared to his most recent labs. 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 Galeas. (7) Type 2 diabetes mellitus: Code(s): E11.9 - Type 2 diabetes mellitus without complications Status: Chronic Assessment and Plan: Random glucose today was 185. Hold glipizide while NPO. Initiate sliding scale insulin, Accu-Cheks, and hypoglycemic protocol. (8) Prostate cancer: Onset Date: 07/2018 Code(s): C61 - Malignant neoplasm of prostate Status: Chronic Assessment and Plan: Managed by Dr. Cho. On Revlimid. (9) Essential hypertension: Code(s): I10 - Essential (primary) hypertension Status: Chronic Assessment and Plan: He was profoundly orthostatic at his home as per HPI. Antihypertensives currently on hold. Initiate fall precautions. Subjective Date/time seen: 07/04/22 14:29 Interval history: Patient resting in bed comfortably. Patient denies dizziness, lightheadedness, chest pain, shortness a breath, nausea and vomiting. Patient states that he has not had any more episodes of bloody stool although he did have bowel prep overnight and states that he was having diarrhea. Review of Systems Review of Systems: All systems reviewed & are unremarkable except as noted in HPI and below Exam Narrative: GENERAL: Comfortable, no acute distress HENMT: moist mucous membranes EYES: EOM intact b/l NECK: no lymphadenopathy RESPIRATORY: clear to auscultation CARDIO: RRR GI: soft, nontender, bowel sounds present SKIN: no rashes EXTREMITIES: no edema, redness or tenderness Objective Data Vital Signs Vital Signs: Vital Signs - 24 hr 07/03/22 14:42 07/03/22 16:00 07/03/22 18:57 Temperature 97.9 F Pulse Rate 55 L 53 L Respiratory Rate 16 Blood Pressure 144/65 H Pulse Oximetry 100 Oxygen Delivery Room Air 07/03/22 20:00 07/03/22 20:00 07/03/22 21:45 Temperature 97.7 F Pulse Rate 53 L 64 Respiratory Rate 14 Blood Pressure 140/63 Pulse Oximetry 100 Oxygen Delivery Room Air 07/04/22 00:00 07/04/22 01:17 07/04/22 01:35 Temperature 98.1 F 97.6 F Pulse Rate 54 L 77 58 L Respiratory Rate 16 20 Blood Pressure 132/69 178/64 H Pulse Oximetry 100 100 Oxygen Delivery 07/04/22 04:00 0
[2022-07-04 14:50] LABS: Glucose Point of Care 97 mg/dl (65-105)
--- NOTE | 2022-07-04 16:07 | PHAR ---
HOME MED: REVLAMID 25 MG CAPSULES; TAKE 1 CAP BY MOUTH DAILY FOR 14 DAYS THEN OFF FOR 7 DAYS EVERY 21 DAY CYCLE. THERE ARE 3 CAPS IN THE BOTTLE ALONG WITH 2 BABY ASPIRIN. VERIFIED BY PHARMACY. MM
--- NOTE | 2022-07-04 17:58 | PDONCCN ---
HPI - Date of Consult Date/Time: 07/04/22 17:58 Requesting Physician: Nate Aguilar MD Primary Care Provider: Kristina Mccollum NP - Consult Narrative Reason for consult: Multiple myeloma Narrative: Hubert Finnegan is a 81 year old male with history of IgA multiple myeloma diagnosed in January 2014 status post initial chemotherapy with RVD regimen. Patient had repeated bone marrow biopsy on May 10 that showed 80% involvement with multiple myeloma. He was restarted on chemotherapy with VRD regimen. Patient also has history of prostate cancer, type 2 diabetes, hypertension and hyperlipidemia came into the hospital with rectal bleeding. According to patient he also fell after feeling lightheaded and dizzy. His hemoglobin on admission was 6.8. He received 1 unit of packed red blood cell. EGD showed gastritis. Sigmoidoscopy came back normal. CT scan showed irregular posterior bladder wall mass extending to the right urethral or if eyes with mild right hydronephrosis. Urology service was consulted. Other labs showed iron 35 saturation 14% with vitamin B12 more than 1000. Patient received last chemotherapy with Velcade on June 30. He was supposed to start Procrit injection yesterday for anemia of chemotherapy. Review of Systems - Review of Systems All systems reviewed & are unremarkable except as noted in HPI and bel - Neurologic Denies abnormal speech, Denies behavioral changes [facility] Medical History: Medical History (Last Reviewed 07/03/22 @ 20:21 by Zita Garcia PA-C) Chronic anemia Chronic kidney disease, stage 3 Dyslipidemia Essential hypertension Heart disease Heart murmur Mixed hyperlipidemia Multiple myeloma Onset Date: 01/2014 Relapsed May 2022. Followed by Dr. Galeas. Osteoarthritis of spine with radiculopathy, lumbar region Prostate cancer Onset Date: 07/2018 Pulmonary hypertension Type 2 diabetes mellitus Surgical History: Surgical History (Last Reviewed 07/03/22 @ 20:21 by Zita Garcia PA-C) History of cataract extraction with lens replacement History of colonoscopy Onset Date: 03/[address] Nuno: internal hemorrhoids and sigmoid diverticulosis. 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 Family History: Family History (Last Reviewed 07/03/22 @ 20:21 by Zita Garcia PA-C) Mother Family history of pancreatic cancer Patient's mother is Family history of malignant neoplasm Diabetes mellitus Hypertension Heart disease Sibling Family history of pancreatic cancer Family history of malignant neoplasm of breast in first degree relative Father Family history of coronary artery disease Cerebrovascular accident - Social History Social History: Social History (Last Updated 07/03/22 @ 20:21 by Zita Garcia PA-C) Alcohol Use: Alcohol intake: never Substance Use: Substance use: never Substance use type: does not use Others: Spiritual care concerns: No Living Arrangements: Living arrangements: with family Smoking Status: Smoking status: Former smoker Smokeless tobacco user: chewing tobacco Second hand tobacco smoke exposure: No Smoking Pack-years: Smoking packs per day: 0.5 Smoking cigarettes per day: 10.0 Years smoked: 10 Smoking pack-years: 5.00 Social Determinants of Health: Has the Lack of Transportation Kept You From Medical Appointments or From Getting Medications?: No Within the Past 12 Months, Were You Worried Whether Your Food Would Run Out Before You Got Money to Buy More?: Never True What is Your Housing Situati
[2022-07-04] MEDS: LATANOPROST 0.005% OP SOLN 2.5 ML BTL 1 DROP EACH EYE (17:59)
[2022-07-04 18:06] LABS: Glucose Point of Care 102 mg/dl (65-105)
[2022-07-04] MEDS: EPOETIN ALFA-EPBX 20,000 UNITS/ML VIAL 20000 UNITS SUB-Q (19:00)
[2022-07-04] MEDS: IRON SUCROSE COMPLEX 500 MG in SODIUM CHLORIDE 0.9% IV 250 ML 78.57 MG IVPB (19:00)
[2022-07-05] VITALS (13 sets, daily range): BP systolic 126–169; BP diastolic 56–69; PULSE 42–75; RESP 18; TEMP 36.6–36.9; O2SAT 56–100
[2022-07-05 06:21] LABS: Hematocrit 22.5 % (42.0-52.0); Hemoglobin 7.6 g/dL (14.0-18.0); Immature Platelet Fraction Pct 26.7 % (0.9-11.2); Mean Corpuscular HGB Conc 33.8 g/dl (32-36); Mean Corpuscular Hemoglobin 30.2 pg (26-34); Mean Corpuscular Volume 89.3 fl (80-100); Red Blood Count 2.52 M/mm3 (4.6-6.20); Red Cell Distribution Width 16.7 % (11.5-14.5); White Blood Count 5.6 K/mm3 (4.5-10.0)
[2022-07-05 06:42] LABS: Alanine Aminotransferase 44 U/L (6-50); Albumin Level 2.8 g/dL (3.5-5.1); Alkaline Phosphatase 55 U/L (38-126); Anion Gap 4 mmol/L (8-16); Aspartate Amino Transferase 46 U/L (17-59); Bilirubin,Total 0.6 mg/dL (0.2-1.3); Blood Urea Nitrogen 17 mg/dL (9-20); Calcium 6.9 mg/dL (8.4-10.2); Carbon Dioxide 22 mmol/L (22-30); Chloride 109 mmol/L (98-107); Estimated CRCL calculation 51 ml/min; Estimated Glomerular Filt Rate > 60; Glucose 91 mg/dL (65-110); Platelet Count Result 24 k/mm3 (150-375); Potassium 3.9 mmol/L (3.4-5.0); Sodium 135 mmol/L (137-145)
[2022-07-05 08:27] LABS: Glucose Point of Care 90 mg/dl (65-105)
[2022-07-05] MEDS: FERROUS SULFATE 324 MG TABLET PO (10:23)
[2022-07-05] MEDS: FLUCONAZOLE 100 MG TABLET PO (10:23)
[2022-07-05] MEDS: ACYCLOVIR 400 MG TABLET PO ×2 (10:23→21:19)
[2022-07-05] MEDS: PRAMIPEXOLE 0.125 MG TABLET BY MOUTH (10:23)
--- NOTE | 2022-07-05 12:04 | PM.IMPN ---
Progress Note: A&P Assessment and Plan (1) GI bleed: Code(s): K92.2 - Gastrointestinal hemorrhage, unspecified Status: Resolved Assessment and Plan: Patient reports painless bright red blood per rectum this morning. Dr. Conteh has been consulted EGD and colonoscopy planned for today. H&H being monitored. EGD revealing gastritis with no active bleeding. Patient continuing PPI therapy. Colonoscopy did not reveal any active bleeding in the colon. Patient has not had any more bloody stools. Anemia is likely multifactorial due to multiple myeloma with chemotherapy, gastritis,etc. (2) Acute on chronic anemia: Code(s): D64.9 - Anemia, unspecified Status: Acute Assessment and Plan: Baseline hemoglobin looks to be in the mid sevens. He will be transfused to a stable hemoglobin and H&H will be trended closely. Patient has remained stable post transfusion. (3) Bladder mass: Code(s): N32.89 - Other specified disorders of bladder Status: Acute Assessment and Plan: CT of the abdomen and pelvis shows a bladder wall mass. Dr. Cho has agreed to see patient in the office after he is discharged. Patient does not have any pain or hematuria at this time. (4) Thrombocytopenia: Code(s): D69.6 - Thrombocytopenia, unspecified Status: Chronic Assessment and Plan: Acute on chronic thrombocytopenia. Likely due to a combination of factors including multiple myeloma and recent chemotherapy. Consulted Oncology Patient platelet trending down with them being at 24 today. 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 Patient given bolus of Solu-Medrol 125 mg x 1 then started on Solu-Medrol 60 mg q.8 hours. Will continue to trend platelet count. (5) Chronic kidney disease, stage 3: Code(s): N18.30 - Chronic kidney disease, stage 3 unspecified Status: Chronic Assessment and Plan: Creatinine is stable when compared to his most recent labs. 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 Galeas. (7) Type 2 diabetes mellitus: Code(s): E11.9 - Type 2 diabetes mellitus without complications Status: Chronic Assessment and Plan: Initiate sliding scale insulin, Accu-Cheks, and hypoglycemic protocol. (8) Prostate cancer: Onset Date: 07/2018 Code(s): C61 - Malignant neoplasm of prostate Status: Chronic Assessment and Plan: Managed by Dr. Cho. On Revlimid. (9) Essential hypertension: Code(s): I10 - Essential (primary) hypertension Status: Chronic Assessment and Plan: He was profoundly orthostatic at his home as per HPI. Antihypertensives currently on hold. Initiate fall precautions. Subjective Date/time seen: 07/05/22 12:04 Interval history: Patient in bed resting and doing. He is hard of hearing. Patient states that he is ready go on is feeling much better. Patient denies that he has had any more rectal bleeding and no blood in his stools. Patient denies dysuria, hematuria, nausea, vomiting and abdominal pain. Patient does states that he feels weak but attributes this to his cancer/chemotherapy. Review of Systems Review of Systems: All systems reviewed & are unremarkable except as noted in HPI and below Exam Narrative: GENERAL: Comfortable, no acute distress HENMT: moist mucous membranes EYES: EOM intact b/l NECK: no lymphadenopathy RESPIRATORY: clear to auscultation CARDIO: RRR GI: soft, nontender, bowel sounds present SKIN: no rashes EXTREMITIES: no edema, redness or tenderness Objective Data Vital Signs Vital Signs: Vital Sig
[2022-07-05 12:12] LABS: Glucose Point of Care 122 mg/dl (65-105)
[2022-07-05] MEDS: methylPREDNISolone SOD SUCC 125 MG VIAL IV PUSH (12:51)
[2022-07-05] MEDS: FLUTICASONE PROPIONATE 0.05% NA SPR 16 GM BTL (*BKC) 1 SPRAY NASAL (12:51)
[2022-07-05] MEDS: traMADol HCL (*CRX) 50 MG TABLET PO (13:08)
[2022-07-05 17:42] LABS: Glucose Point of Care 212 mg/dl (65-105)
[2022-07-05] MEDS: INSULIN ASPART (*BKC) 100 UNITS/ML SUB-Q (18:00)
[2022-07-05] MEDS: LATANOPROST 0.005% OP SOLN 2.5 ML BTL 1 DROP EACH EYE (18:13)
[2022-07-05 21:19] LABS: Glucose Point of Care 280 mg/dl (65-105)
[2022-07-05] MEDS: methylPREDNISolone SOD SUCC 125 MG VIAL 60 MG IV PUSH (21:20)
[2022-07-06] VITALS (15 sets, daily range): BP systolic 112–155; BP diastolic 38–66; PULSE 40–73; RESP 16–18; TEMP 36.4–36.8; O2SAT 99–100
[2022-07-06] MEDS: methylPREDNISolone SOD SUCC 125 MG VIAL 60 MG IV PUSH ×3 (06:52→21:16)
[2022-07-06 07:03] LABS: Basophils Percent Auto 0.1 % (0.2-1.2); Hematocrit 23.3 % (42.0-52.0); Hemoglobin 7.8 g/dL (14.0-18.0); Immature Granulocyte Absolute 0.11 K/mm3 (0.00-0.031); Immature Granulocyte Percent A 1.2 % (0-0.5); Lymphocytes Absolute Auto 0.24 K/mm3 (0.9-3.2); Lymphocytes Percent Auto 2.6 % (18.3-44.2); Mean Corpuscular HGB Conc 33.5 g/dl (32-36); Mean Corpuscular Hemoglobin 29.9 pg (26-34); Mean Corpuscular Volume 89.3 fl (80-100); Monocytes Absolute Auto 0.3 K/mm3 (0.1-0.6); Monocytes Percent Auto 2.9 % (2.6-8.5); Neutrophils Absolute Auto 8.6 K/mm3 (1.3-6.7); Neutrophils Percent Auto 93.2 % (45.5-73.1); Nucleated Red Blood Cells Perc 0.3 % (0.0-0.2); Platelet Count Result 27 k/mm3 (150-375); Red Blood Count 2.61 M/mm3 (4.6-6.20); Red Cell Distribution Width 16.1 % (11.5-14.5); White Blood Count 9.2 K/mm3 (4.5-10.0)
[2022-07-06 07:14] LABS: Alanine Aminotransferase 40 U/L (6-50); Alkaline Phosphatase 56 U/L (38-126); Anion Gap 5 mmol/L (8-16); Aspartate Amino Transferase 23 U/L (17-59); Bilirubin,Total 0.7 mg/dL (0.2-1.3); Blood Urea Nitrogen 23 mg/dL (9-20); Calcium 6.5 mg/dL (8.4-10.2); Carbon Dioxide 22 mmol/L (22-30); Chloride 104 mmol/L (98-107); Estimated CRCL calculation 44 ml/min; Estimated Glomerular Filt Rate > 60; Glucose 214 mg/dL (65-110); Potassium 4.4 mmol/L (3.4-5.0); Sodium 131 mmol/L (137-145)
[2022-07-06 07:58] LABS: Glucose Point of Care 204 mg/dl (65-105)
[2022-07-06] MEDS: INSULIN ASPART (*BKC) 100 UNITS/ML SUB-Q ×3 (08:12→17:07)
[2022-07-06] MEDS: FERROUS SULFATE 324 MG TABLET PO (09:27)
[2022-07-06] MEDS: ACYCLOVIR 400 MG TABLET PO ×2 (09:27→21:15)
[2022-07-06] MEDS: glipiZIDE 2.5 MG TABLET PO ×3 (09:27→17:07)
[2022-07-06] MEDS: CHOLECALCIFEROL 1,000 UNITS TABLET 2000 UNITS PO (09:27)
[2022-07-06] MEDS: PRAMIPEXOLE 0.125 MG TABLET BY MOUTH (09:27)
[2022-07-06] MEDS: FLUCONAZOLE 100 MG TABLET PO (09:27)
[2022-07-06] MEDS: PRAVASTATIN SODIUM 10 MG TABLET BY MOUTH (09:27)
[2022-07-06] MEDS: CYANOCOBALAMIN 1,000 MCG TABLET 1000 MCG PO (09:27)
[2022-07-06] MEDS: oxyBUTYnin CHLORIDE XL 5 MG TAB.ER.24 15 MG PO (09:28)
[2022-07-06 11:51] LABS: Glucose Point of Care 274 mg/dl (65-105)
--- NOTE | 2022-07-06 14:17 | PM.IMPN ---
Progress Note: A&P Assessment and Plan (1) GI bleed: Code(s): K92.2 - Gastrointestinal hemorrhage, unspecified Status: Resolved Assessment and Plan: Patient reports painless bright red blood per rectum this morning. Dr. Conteh has been consulted EGD and colonoscopy planned for today. H&H being monitored. EGD revealing gastritis with no active bleeding. Patient continuing PPI therapy. Colonoscopy did not reveal any active bleeding in the colon. Patient has not had any more bloody stools. Anemia is likely multifactorial due to multiple myeloma with chemotherapy, gastritis,etc. (2) Acute on chronic anemia: Code(s): D64.9 - Anemia, unspecified Status: Acute Assessment and Plan: Baseline hemoglobin looks to be in the mid sevens. He will be transfused to a stable hemoglobin and H&H will be trended closely. Patient has remained stable post transfusion. (3) Bladder mass: Code(s): N32.89 - Other specified disorders of bladder Status: Acute Assessment and Plan: CT of the abdomen and pelvis shows a bladder wall mass. Dr. Cho has agreed to see patient in the office after he is discharged. Patient does not have any pain or hematuria at this time. (4) Thrombocytopenia: Code(s): D69.6 - Thrombocytopenia, unspecified Status: Chronic Assessment and Plan: Acute on chronic thrombocytopenia. Likely due to a combination of factors including multiple myeloma and recent chemotherapy. Consulted Oncology Patient platelet trending down with them being at 24 today. 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 Patient given bolus of Solu-Medrol 125 mg x 1 then started on Solu-Medrol 60 mg q.8 hours. Will continue to trend platelet count. (5) Chronic kidney disease, stage 3: Code(s): N18.30 - Chronic kidney disease, stage 3 unspecified Status: Chronic Assessment and Plan: Creatinine is stable when compared to his most recent labs. 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 Galeas. (7) Type 2 diabetes mellitus: Code(s): E11.9 - Type 2 diabetes mellitus without complications Status: Chronic Assessment and Plan: Initiate sliding scale insulin, Accu-Cheks, and hypoglycemic protocol. (8) Prostate cancer: Onset Date: 07/2018 Code(s): C61 - Malignant neoplasm of prostate Status: Chronic Assessment and Plan: Managed by Dr. Cho. On Revlimid. (9) Essential hypertension: Code(s): I10 - Essential (primary) hypertension Status: Chronic Assessment and Plan: He was profoundly orthostatic at his home as per HPI. Antihypertensives currently on hold. Initiate fall precautions. Subjective Date/time seen: 07/06/22 14:17 Interval history: Patient with no new complaints at this time. He is ready to go home. I have talked to oncologist and he would like patient to be monitored overnight due to platelet count and concern for ITP. If platelet count continues to rise patient should be able to discharge tomorrow on steroids. Review of Systems Review of Systems: All systems reviewed & are unremarkable except as noted in HPI and below Exam Narrative: GENERAL: Comfortable, no acute distress HENMT: moist mucous membranes EYES: EOM intact b/l NECK: no lymphadenopathy RESPIRATORY: clear to auscultation CARDIO: RRR GI: soft, nontender, bowel sounds present SKIN: no rashes EXTREMITIES: no edema, redness or tenderness Objective Data Vital Signs Vital Signs: Vital Signs - 24 hr 07/05/22 14:22 07/05/22 14:22 07/05/22 14:24 Temperature
[2022-07-06 16:53] LABS: Glucose Point of Care 235 mg/dl (65-105)
[2022-07-06] MEDS: LATANOPROST 0.005% OP SOLN 2.5 ML BTL 1 DROP EACH EYE (17:07)
[2022-07-06] MEDS: lisinopriL 20 MG TABLET 40 MG BY MOUTH (17:08)
[2022-07-06 21:47] LABS: Glucose Point of Care 287 mg/dl (65-105)
[2022-07-07] VITALS (8 sets, daily range): BP systolic 163–168; BP diastolic 61–64; PULSE 51–72; RESP 16–18; TEMP 36.4–36.7; O2SAT 99–100
[2022-07-07 06:01] LABS: Basophils Percent Auto 0.2 % (0.2-1.2); Hematocrit 23.2 % (42.0-52.0); Hemoglobin 7.9 g/dL (14.0-18.0); Immature Granulocyte Absolute 0.17 K/mm3 (0.00-0.031); Immature Granulocyte Percent A 1.5 % (0-0.5); Immature Platelet Fraction Pct 29.1 % (0.9-11.2); Lymphocytes Absolute Auto 0.17 K/mm3 (0.9-3.2); Lymphocytes Percent Auto 1.5 % (18.3-44.2); Mean Corpuscular HGB Conc 34.1 g/dl (32-36); Mean Corpuscular Hemoglobin 30.7 pg (26-34); Mean Corpuscular Volume 90.3 fl (80-100); Monocytes Absolute Auto 0.5 K/mm3 (0.1-0.6); Monocytes Percent Auto 4.1 % (2.6-8.5); Neutrophils Absolute Auto 10.8 K/mm3 (1.3-6.7); Neutrophils Percent Auto 92.7 % (45.5-73.1); Nucleated Red Blood Cells Perc 0.3 % (0.0-0.2); Platelet Count Result 36 k/mm3 (150-375); Red Blood Count 2.57 M/mm3 (4.6-6.20); Red Cell Distribution Width 16.6 % (11.5-14.5); White Blood Count 11.6 K/mm3 (4.5-10.0)
[2022-07-07 06:15] LABS: Alanine Aminotransferase 34 U/L (6-50); Albumin Level 3.1 g/dL (3.5-5.1); Alkaline Phosphatase 54 U/L (38-126); Anion Gap 6 mmol/L (8-16); Aspartate Amino Transferase 19 U/L (17-59); Bilirubin,Total 0.5 mg/dL (0.2-1.3); Blood Urea Nitrogen 28 mg/dL (9-20); Calcium 6.6 mg/dL (8.4-10.2); Carbon Dioxide 23 mmol/L (22-30); Chloride 105 mmol/L (98-107); Estimated CRCL calculation 49 ml/min; Estimated Glomerular Filt Rate > 60; Glucose 255 mg/dL (65-110); Potassium 4.4 mmol/L (3.4-5.0); Sodium 134 mmol/L (137-145)
[2022-07-07] MEDS: methylPREDNISolone SOD SUCC 125 MG VIAL 60 MG IV PUSH ×2 (06:17→14:05)
[2022-07-07 06:43] LABS: Anisocytosis 1+ (NORMAL); Macrocytosis 1+ (NORMAL); Ovalocytes 1+ (NORMAL); Platelet Estimate Decreased (Adequate)
[2022-07-07 06:44] LABS: Burr Cells 1+ (NORMAL); Poikilocytosis 1+ (NORMAL); Schistocytes Rare (NORMAL)
[2022-07-07] MEDS: glipiZIDE 2.5 MG TABLET PO ×3 (08:15→17:24)
[2022-07-07] MEDS: PRAMIPEXOLE 0.125 MG TABLET BY MOUTH (08:15)
[2022-07-07] MEDS: oxyBUTYnin CHLORIDE XL 5 MG TAB.ER.24 15 MG PO (08:16)
[2022-07-07] MEDS: ACYCLOVIR 400 MG TABLET PO (08:16)
[2022-07-07] MEDS: CHOLECALCIFEROL 1,000 UNITS TABLET 2000 UNITS PO (08:16)
[2022-07-07] MEDS: CYANOCOBALAMIN 1,000 MCG TABLET 1000 MCG PO (08:16)
[2022-07-07] MEDS: FERROUS SULFATE 324 MG TABLET PO (08:16)
[2022-07-07] MEDS: lisinopriL 20 MG TABLET 40 MG BY MOUTH ×2 (08:16→17:01)
[2022-07-07] MEDS: FLUCONAZOLE 100 MG TABLET PO (08:17)
[2022-07-07] MEDS: PRAVASTATIN SODIUM 10 MG TABLET BY MOUTH (08:17)
--- NOTE | 2022-07-07 08:39 | PM.DS ---
DS: Admitting Diagnosis Discharge Date 07/07/22 Admitting Diagnosis anemia DS: Discharge Diagnosis Discharge Diagnosis (1) GI bleed: Code(s): K92.2 - Gastrointestinal hemorrhage, unspecified Status: Resolved Assessment and Plan: Patient reports painless bright red blood per rectum this morning. Dr. Conteh has been consulted EGD and colonoscopy planned for today. H&H being monitored. EGD revealing gastritis with no active bleeding. Patient continuing PPI therapy. Colonoscopy did not reveal any active bleeding in the colon. Patient has not had any more bloody stools. Anemia is likely multifactorial due to multiple myeloma with chemotherapy, gastritis,etc. (2) Acute on chronic anemia: Code(s): D64.9 - Anemia, unspecified Status: Acute Assessment and Plan: Baseline hemoglobin looks to be in the mid sevens. He will be transfused to a stable hemoglobin and H&H will be trended closely. Patient has remained stable post transfusion. (3) Bladder mass: Code(s): N32.89 - Other specified disorders of bladder Status: Acute Assessment and Plan: CT of the abdomen and pelvis shows a bladder wall mass. Dr. Cho has agreed to see patient in the office after he is discharged. Patient does not have any pain or hematuria at this time. (4) Thrombocytopenia: Code(s): D69.6 - Thrombocytopenia, unspecified Status: Chronic Assessment and Plan: Acute on chronic thrombocytopenia. Likely due to a combination of factors including multiple myeloma and recent chemotherapy. Consulted Oncology Patient platelet trending down with them being at 24 today. 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 IV Solu-Medrol transitioned to PO prednisone on discharge. (5) Chronic kidney disease, stage 3: Code(s): N18.30 - Chronic kidney disease, stage 3 unspecified Status: Chronic Assessment and Plan: Creatinine is stable when compared to his most recent labs. 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 Galeas. (7) Type 2 diabetes mellitus: Code(s): E11.9 - Type 2 diabetes mellitus without complications Status: Chronic Assessment and Plan: Initiate sliding scale insulin, Accu-Cheks, and hypoglycemic protocol. (8) Prostate cancer: Onset Date: 07/2018 Code(s): C61 - Malignant neoplasm of prostate Status: Chronic Assessment and Plan: Managed by Dr. Cho. On Revlimid. (9) Essential hypertension: Code(s): I10 - Essential (primary) hypertension Status: Chronic Assessment and Plan: He was profoundly orthostatic at his home as per HPI. Antihypertensives currently on hold. Initiate fall precautions. DS: Summary Hospital Course Hospital Course: This is a 81-year-old with a history of hypertension, hyperlipidemia, type 2 diabetes, multiple myeloma, prostate cancer, GERD and other comorbidities presented to the ED on 07/03/2022 for evaluation of rectal bleeding. Patient had been passing a couple of loose stools for approximately 1 week before ED presentation and describes in as brownish east in color. He had been getting lightheaded and dizzy upon standing. Patient had a near syncopal episode and at that time he was incontinent of bright red blood per rectum. When he arrived to the ED patient was profoundly orthostatic was found have a hemoglobin of 6.8 on arrival. Patient received 2 units of PRBCs and admitted to the floor. CT abdomen pelvis revealing irregular mass of the posterior bladder wall extending into the right ureteral orifice causing mild right hydronephrosis conc
[2022-07-07 08:51] LABS: Glucose Point of Care 211 mg/dl (65-105)
[2022-07-07] MEDS: INSULIN ASPART (*BKC) 100 UNITS/ML SUB-Q ×3 (08:56→17:25)
[2022-07-07 11:51] LABS: Glucose Point of Care 288 mg/dl (65-105)
--- NOTE | 2022-07-07 15:21 | PM.IMPN ---
Progress Note: A&P Assessment and Plan (1) GI bleed: Code(s): K92.2 - Gastrointestinal hemorrhage, unspecified Status: Resolved Assessment and Plan: Patient reports painless bright red blood per rectum this morning. Dr. Conteh has been consulted EGD and colonoscopy planned for today. H&H being monitored. EGD revealing gastritis with no active bleeding. Patient continuing PPI therapy. Colonoscopy did not reveal any active bleeding in the colon. Patient has not had any more bloody stools. Anemia is likely multifactorial due to multiple myeloma with chemotherapy, gastritis,etc. (2) Acute on chronic anemia: Code(s): D64.9 - Anemia, unspecified Status: Acute Assessment and Plan: Baseline hemoglobin looks to be in the mid sevens. He will be transfused to a stable hemoglobin and H&H will be trended closely. Patient has remained stable post transfusion. (3) Bladder mass: Code(s): N32.89 - Other specified disorders of bladder Status: Acute Assessment and Plan: CT of the abdomen and pelvis shows a bladder wall mass. Dr. Cho has agreed to see patient in the office after he is discharged. Patient does not have any pain or hematuria at this time. (4) Thrombocytopenia: Code(s): D69.6 - Thrombocytopenia, unspecified Status: Chronic Assessment and Plan: Acute on chronic thrombocytopenia. Likely due to a combination of factors including multiple myeloma and recent chemotherapy. Consulted Oncology Patient platelet trending down with them being at 24 today. 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 IV Solu-Medrol will be transitioned to PO prednisone on discharge. (5) Chronic kidney disease, stage 3: Code(s): N18.30 - Chronic kidney disease, stage 3 unspecified Status: Chronic Assessment and Plan: Creatinine is stable when compared to his most recent labs. 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 Galeas. (7) Type 2 diabetes mellitus: Code(s): E11.9 - Type 2 diabetes mellitus without complications Status: Chronic Assessment and Plan: Initiate sliding scale insulin, Accu-Cheks, and hypoglycemic protocol. (8) Prostate cancer: Onset Date: 07/2018 Code(s): C61 - Malignant neoplasm of prostate Status: Chronic Assessment and Plan: Managed by Dr. Cho. On Revlimid. (9) Essential hypertension: Code(s): I10 - Essential (primary) hypertension Status: Chronic Assessment and Plan: He was profoundly orthostatic at his home as per HPI. Antihypertensives currently on hold. Initiate fall precautions. Subjective Date/time seen: 07/07/22 15:21 Interval history: Patient doing well today with no new complaints. He does mention that he isn't sure if he would like to continue cancer treatment. I discussed with him his options of hospice care with both him and his . Stable for start understanding and I answered all their questions to the best of my ability. Patient is still not sure what he wants to do just yet. He denies chest pain, shortness a breath, nausea, vomiting, dizziness and headache. He does states that he has bilateral lower extremity weakness that has been present since he was diagnosed with multiple myeloma again. Planning for home health and waiting for insurance authorization. Review of Systems Review of Systems: All systems reviewed & are unremarkable except as noted in HPI and below Exam Narrative: GENERAL: Comfortable, no acute distress HENMT: moist mucous membranes EYES: EOM intact b/l NECK: no lymphadenop
[2022-07-07] MEDS: LATANOPROST 0.005% OP SOLN 2.5 ML BTL 1 DROP EACH EYE (16:59)
[2022-07-07 17:12] LABS: Glucose Point of Care 228 mg/dl (65-105)
[2022-07-10 04:10] LABS: Haptoglobin 158 mg/dL (43-212)
== END 2022-07-07 18:10 | disposition home health service (06) | DRG 378 ==
LOC: ANHED 11:45 → ANH2MED 13:37
PROVIDERS: Internal Medicine Gastroenterology; Internal Medicine Hematology & Oncology; Physician Assistant; Admitting Provider Family Medicine; Emergency Provider Physician Assistant; PCP Nurse Practitioner Family; Visit Provider Internal Medicine Critical Care Medicine
PROC: 0DJ08ZZ Inspection of Upper Intestinal Tract, Via Natural or Artificial Opening Endoscopic (ICD-10-PCS; CPT 43235; principal; 2022-07-04 15:15)
DX: K29.01 Acute gastritis with bleeding (principal); C90.02 Multiple myeloma in relapse; D64.81 Anemia due to antineoplastic chemotherapy; D63.0 Anemia in neoplastic disease; E11.22 Type 2 diabetes mellitus with diabetic chronic kidney disease; I12.9 Hypertensive chronic kidney disease with stage 1 through stage 4 chronic kidney disease, or unspecified chronic kidney disease; N18.30 Chronic kidney disease, stage 3 unspecified; N32.89 Other specified disorders of bladder; I95.1 Orthostatic hypotension; L89.159 Pressure ulcer of sacral region, unspecified stage; D69.59 Other secondary thrombocytopenia; C61 Malignant neoplasm of prostate; I10 Essential (primary) hypertension; E78.5 Hyperlipidemia, unspecified; K21.9 Gastro-esophageal reflux disease without esophagitis; M47.26 Other spondylosis with radiculopathy, lumbar region; Z98.42 Cataract extraction status, left eye; Z98.41 Cataract extraction status, right eye; Z96.1 Presence of intraocular lens
CPT/HCPCS: 36415; 36430; 74177; 80048; 80053; 81001; 82607; 82728; 82746; 82948; 83010; 83036; 83540; 83550; 83615; 83690; 83735; 85025; 85027; 85055; 85610; 85730; 86023; 86850; 86870; 86880; 86900; 86901; 86922; 86923; 86971; 87086; 88305; 93005; 96360; 96361; 97161; 97165; 99285; A9270; G0378; J1756; J1815; J2930; J7030; J7050; J7120; P9016; Q5105; Q9967

== ENCOUNTER 2023-04-07 10:52 | Outpatient (NON) | payer MEDICARE, SELFPAY ==
[2023-04-07 12:22] LABS: Appearance Urine Clear (Clear); Bacteria Urine None Seen /hpf; Bilirubin Urine Negative (Negative); Blood Urine 3+ (Negative); Color Urine Yellow (Yellow); Glucose Urine UA Negative (Negative); Ketones Urine Negative (Negative); Leukocyte Esterase Ur Negative LEU/UL (Negative); Need Manual Microscopic Reviewed; Nitrate Urine Negative (Negative); Non Pathogenic Casts 0-2; Protein Urine 2+ mg/dL (Negative); RBC Urine 21-50 /hpf (0-2); Specific Grav Ur 1.014 (1.001-1.035); Squamous Epithelial Cell Urine Occasional /hpf (Few); Urobilinogen Urine 0.2 mg/dL (<2.0); pH Urine 5.5 (5.0-9.0)
[2023-04-07 12:23] LABS: Add Urine Microscopic? YES
== END 2023-04-07 10:53 | disposition home or self-care (01) ==
PROVIDERS: PCP Nurse Practitioner Family; Visit Provider Nurse Practitioner Family
DX: R30.0 Dysuria (principal)
CPT/HCPCS: 81001; 87086

== ENCOUNTER 2023-05-11 19:18 | Emergency (ER) | payer MEDICARE, SELFPAY ==
--- NOTE | ~2023-05-11 | CT_ITS ---
EXAMINATION: CT abdomen pelvis w con DATE: 05/11/2023 22:11 INDICATION: abd pain, hematuria TECHNIQUE: Computed tomography (CT) of the abdomen and pelvis was performed with 100 mL Omnipaque-350 intravenous contrast. Automated exposure control and iterative reconstruction technique were employe d. The dose-length product was 329.09 mGy-cm. COMPARISON: 07/03/2022. FINDINGS: Lower thorax: Left pleural calcifications. Coronary artery and aortic valve calcifications. Liver: Granulomatous calcifications. 1.4 cm right lobe hypodensity, likely cyst or hemangioma. Biliary/Gallbladder: Gallbladder is normal. No bile duct dilation. Pancreas: Moderate atrophy. Spleen: Granulomatous calcifications. Adrenals:No mass. Kidneys: Moderate right hydronephrosis. Mild bilateral cortical thinning. Simple left upper pole cyst . No obstructing calcifications or suspicious mass. GI tract: Mild distal esophageal and gastric wall edema. No small or large bowel dilation. Normal gerardo endix. Diverticulosis without diverticulitis. Mesentery/Peritoneum: No ascites, mass, or free air. Retroperitoneum: No mass. Pelvis: The urinary bladder is decompressed by Arnold catheter. Marked urinary bladder wall thickening /edema. Irregular masslike lesion in the base of the urinary bladder, indistinguishable from the mild ly enlarged prostate. Soft Tissues: Soft tissues and body wall unremarkable. Bones: New sclerotic lesions in L2, the distal sacrum, and the left iliac bone. IMPRESSION: Mild esophagitis/gastritis. 1.4 cm liver hypodensity, possible cyst or hemangioma, other lesions including metastatic disease not excluded. Consider MRI of the liver without and with contrast. Severe cystitis. Moderate right hydronephrosis, likely secondary to cystitis. No obstructing mass or stone detected. Irregular bladder/prostate mass. Multifocal sclerotic osseous lesions suspicious for metastatic disease. Reviewed, dictated and finalized at location [facility]. 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 1.4 cm liver hypodensity, possible cyst or hemangioma, other lesions including metastatic disease not excluded. Consider MRI of the liver without and with con trast. Severe cystitis. Moderate right hydronephrosis, likely secondary to cystitis. No obstructing mas s or stone detected. Irregular bladder/prostate mass. Multifocal sclerotic osseous lesions suspicious for metastatic disease.
[2023-05-11 19:18] VITALS: BP 179/87; PULSE 69; RESP 15; TEMP 36.8; O2SAT 100
--- NOTE | 2023-05-11 19:40 | ED.MALEGU ---
HPI - Male Genitourinary General Chief complaint: Urogenital-Male Stated complaint: decreased urine output, abd pain Time Seen by Provider: 05/11/23 19:33 Source: patient and EMS Mode of arrival: EMS Limitations: other (patient is very hard of hearing) History of Present Illness HPI Narrative: This is an 82-year-old male that presents to the emergency department for urinary retention. Reports over the last couple of days he has only been able to get out small dribbles of urine. He has also noted blood in his urine. Reports abdominal discomfort due to bladder distention. Denies fevers, vomiting, or flank pain. Related Data Home Medications Medication Instructions Recorded Confirmed latanoprost 0.005 % eye drops 1 drop ophthalmic (eye) QPM 10/11/19 11/12/22 cyanocobalamin (vitamin B-12) 1,000 mcg PO DAILY 05/06/22 11/12/22 1,000 mcg tablet ferrous sulfate 325 mg (65 mg 325 mg PO DAILY 05/06/22 11/12/22 iron) tablet (FeroSul) loperamide [Imodium] PO 07/10/22 11/12/22 oxybutynin chloride 15 mg 15 mg PO DAILY PRN 11/12/22 11/12/22 tablet,extended release 24 hr Allergies Allergy/AdvReac Type Severity Reaction Status Date / Time pioglitazone Allergy Mild rash Verified 07/28/22 12:57 latex Allergy Unknown Verified 07/28/22 12:57 Sulfa (Sulfonamide Allergy Rash Verified 07/28/22 12:57 Antibiotics) Review of Systems Review of Systems: CONSTITUTIONAL: Denies fever GASTROINTESTINAL: Reports abdominal pain. Denies nausea, vomiting, or diarrhea. GENITOURINARY: Reports dysuria and hematuria. All systems reviewed & are unremarkable except as noted in HPI and below PMFSH Past Medical History Medical History (Updated 05/11/23 @ 23:08 by Rima Green PA-C) Chronic anemia Chronic kidney disease, stage 3 Dyslipidemia Dysuria Essential hypertension Heart disease Heart murmur Mixed hyperlipidemia Multiple myeloma (01/2014) Relapsed May 2022. Followed by Dr. Galeas. Osteoarthritis of spine with radiculopathy, lumbar region Prostate cancer (07/2018) Pulmonary hypertension Rhinitis Type 2 diabetes mellitus Weakness of both lower extremities Surgical History Surgical History (Updated 07/04/22 @ 18:05 by Kash Galeas MD) History of cataract extraction with lens replacement History of colonoscopy (03/2009) Screening colonoscopy per Dr. Nuno: internal hemorrhoids and sigmoid diverticulosis. 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 Family History Family History Mother Family history of pancreatic cancer Patient's mother is Family history of malignant neoplasm Diabetes mellitus Hypertension Heart disease Sibling Family history of pancreatic cancer Family history of malignant neoplasm of breast in first degree relative Father Family history of coronary artery disease Cerebrovascular accident Social History Social History (Updated 07/03/22 @ 20:21 by Zita Garcia PA-C) Social History: Surrogate medical decision maker: Eloina Finnegan, spouse. Code status: Full code. Smoking packs per day: 0.5 Smoking cigarettes per day: 10.0 Years smoked: 10 Smoking pack-years: 5.00 Smoking status: Never smoker Smokeless tobacco user: chewing tobacco Second hand tobacco smoke exposure: No Alcohol intake: never Substance use: never Substance use type: does not use Lack of Transportation: No Lack of Food: Never True Current Housing: I Have Housing Concerned About Future Housing: No Difficulty Paying Gas/Electric Bills: No Difficulty Paying for Meds: No Currently Unemployed: No Education: High School Diploma/GED Difficulty w/ Childcare
[2023-05-11 20:02] LABS: Basophils Percent Auto 0.6 % (0.2-1.2); Eosinophils Percent Auto 0.5 % (0-4.4); Hematocrit 27.6 % (42.0-52.0); Hemoglobin 8.7 g/dL (14.0-18.0); Immature Granulocyte Absolute 0.03 K/mm3 (0.00-0.031); Immature Granulocyte Percent A 0.5 % (0-0.5); Immature Platelet Fraction Pct 4.9 % (0.9-11.2); Lymphocytes Absolute Auto 1.28 K/mm3 (0.9-3.2); Lymphocytes Percent Auto 20.7 % (18.3-44.2); Mean Corpuscular HGB Conc 31.5 g/dl (32-36); Mean Corpuscular Hemoglobin 29.9 pg (26-34); Mean Corpuscular Volume 94.8 fl (80-100); Mean Platelet Volume 11.1 fl (7.4-10.4); Monocytes Absolute Auto 0.6 K/mm3 (0.1-0.6); Monocytes Percent Auto 10.2 % (2.6-8.5); Neutrophils Absolute Auto 4.2 K/mm3 (1.3-6.7); Neutrophils Percent Auto 67.5 % (45.5-73.1); Platelet Count Result 122 k/mm3 (150-375); Red Blood Count 2.91 M/mm3 (4.6-6.20); Red Cell Distribution Width 13.2 % (11.5-14.5); White Blood Count 6.2 K/mm3 (4.5-10.0)
[2023-05-11 20:11] LABS: Anion Gap 11 mmol/L (8-16); Blood Urea Nitrogen 23 mg/dL (9-20); Calcium 9.2 mg/dL (8.4-10.2); Carbon Dioxide 25 mmol/L (22-30); Chloride 104 mmol/L (98-107); Estimated CRCL calculation 36 ml/min; Estimated Glomerular Filt Rate 58; Glucose 117 mg/dL (65-110); Potassium 4.1 mmol/L (3.4-5.0); Sodium 140 mmol/L (137-145)
[2023-05-11 20:38] VITALS: BP 184/77; PULSE 60; RESP 15; O2SAT 100
[2023-05-11 21:05] LABS: Appearance Urine Clear (Clear); Bacteria Urine None Seen /hpf; Bilirubin Urine Negative (Negative); Blood Urine 3+ (Negative); Color Urine Yellow (Yellow); Glucose Urine UA Negative (Negative); Ketones Urine Negative (Negative); Leukocyte Esterase Ur Negative LEU/UL (Negative); Nitrate Urine Negative (Negative); Non Pathogenic Casts 0-2; Protein Urine 2+ mg/dL (Negative); RBC Urine >100 /hpf (0-2); Specific Grav Ur 1.017 (1.001-1.035); Squamous Epithelial Cell Urine None seen /hpf (Few); Urobilinogen Urine 0.2 mg/dL (<2.0); pH Urine 6.5 (5.0-9.0)
[2023-05-11 21:07] LABS: Add Urine Microscopic? YES
[2023-05-11] MEDS: ONDANSETRON INJ 4 MG/2 ML VIAL IV PUSH (21:43)
[2023-05-11] MEDS: MORPHINE SULFATE (*CRX) 4 MG/ML INJ IV PUSH (21:43)
[2023-05-11 23:32] VITALS: BP 177/96; PULSE 92; RESP 21; O2SAT 98
== END 2023-05-11 23:33 | disposition home or self-care (01) ==
PROVIDERS: Emergency Provider Physician Assistant; PCP Nurse Practitioner Family
DX: C61 Malignant neoplasm of prostate (principal); R33.9 Retention of urine, unspecified; M89.9 Disorder of bone, unspecified; C90.02 Multiple myeloma in relapse; I12.9 Hypertensive chronic kidney disease with stage 1 through stage 4 chronic kidney disease, or unspecified chronic kidney disease; E11.22 Type 2 diabetes mellitus with diabetic chronic kidney disease; N18.30 Chronic kidney disease, stage 3 unspecified; E78.2 Mixed hyperlipidemia; D64.9 Anemia, unspecified; M47.26 Other spondylosis with radiculopathy, lumbar region; F17.210 Nicotine dependence, cigarettes, uncomplicated; F17.220 Nicotine dependence, chewing tobacco, uncomplicated; Z96.1 Presence of intraocular lens; Z98.49 Cataract extraction status, unspecified eye; Z90.79 Acquired absence of other genital organ(s); Z79.84 Long term (current) use of oral hypoglycemic drugs; R93.2 Abnormal findings on diagnostic imaging of liver and biliary tract; N30.90 Cystitis, unspecified without hematuria; K20.90 Esophagitis, unspecified without bleeding; K29.70 Gastritis, unspecified, without bleeding
CPT/HCPCS: 36415; 74177; 80048; 81001; 85025; 85055; 87086; 96365; 96375; 99284; J0696; J2270; J2405; Q9967

== ENCOUNTER 2023-07-27 21:37 | Emergency (ER) | payer MEDICARE, SELFPAY ==
[2023-07-27 21:41] VITALS: BP 156/67; PULSE 66; RESP 16; TEMP 36.6; O2SAT 100
--- NOTE | 2023-07-27 21:59 | PC.NURSE ---
EDP Dr. Anish OWENS placement of 3-way lee catheter and starting CBI.
--- NOTE | 2023-07-27 22:21 | ED.GENADULT ---
HPI - General Adult General Chief complaint: Urogenital-Male Stated complaint: BLOOD CLOTS FROM PENIS S/P PULLING WHITE CATH OUT. Time Seen by Provider: 07/27/23 22:03 History of Present Illness HPI narrative: Patient is an 82-year-old male who presents to the emergency department this evening complaining of urinary retention. Patient had a White catheter placed by his urologist, Dr. Cho approximately 1 week ago. Patient states today decided to remove his White catheter himself around 11:00 a.m.. Patient thought that he was supposed to remove it himself. Since then, patient has not been able to urinate. Patient states that he did pass a few blood clots. who is currently present at bedside states that the patient had an appointment with Dr. Cho for a procedure, however, patient called and canceled the appointment which upset his urologist. thought that the patient did not want to have the procedure performed, however, patient states that the only reason he did want to go to his appointment was because he was having diarrhea that day and not Wanna leave the house. He is currently denying any abdominal pain, any dysuria, and denies any additional symptoms or concerns at this time. Related Data Home Medications Medication Instructions Recorded Confirmed latanoprost 0.005 % eye drops 1 drop ophthalmic (eye) QPM 10/11/19 07/16/23 cyanocobalamin (vitamin B-12) 1,000 mcg PO DAILY 05/06/22 07/16/23 1,000 mcg tablet ferrous sulfate 325 mg (65 mg 325 mg PO DAILY 05/06/22 07/16/23 iron) tablet (FeroSul) fluticasone propionate 50 1 spray intranasal PRN PRN Allergy 07/16/23 07/16/23 mcg/actuation nasal Symptoms spray,suspension (Flonase Allergy Relief) loperamide 2 mg capsule 2 mg PO Q4H PRN Diarrhea 07/16/23 07/16/23 multivitamin 1 tablet PO DAILY 07/16/23 07/16/23 tamsulosin 0.4 mg capsule 0.4 mg PO DAILY 07/16/23 07/16/23 Allergies Allergy/AdvReac Type Severity Reaction Status Date / Time pioglitazone Allergy Mild rash Verified 07/27/23 21:52 latex Allergy Unknown Verified 07/27/23 21:52 Sulfa (Sulfonamide Allergy Rash Verified 07/27/23 21:52 Antibiotics) Review of Systems Review of Systems: All systems are reviewed and are negative unless stated otherwise in the HPI. [facility] Past Medical History Medical History Chronic anemia Chronic kidney disease, stage 3 Dyslipidemia Dysuria Essential hypertension Heart disease Heart murmur Mixed hyperlipidemia Multiple myeloma (01/2014) Relapsed May 2022. Followed by Dr. Galeas. Osteoarthritis of spine with radiculopathy, lumbar region Prostate cancer (07/2018) Pulmonary hypertension Rhinitis Type 2 diabetes mellitus Weakness of both lower extremities Surgical History Surgical History History of cataract extraction with lens replacement History of colonoscopy (03/2009) Screening colonoscopy per Dr. Nuno: internal hemorrhoids and sigmoid diverticulosis. 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 Family History Family History Mother Family history of pancreatic cancer Patient's mother is Family history of malignant neoplasm Diabetes mellitus Hypertension Heart disease Sibling Family history of pancreatic cancer Family history of malignant neoplasm of breast in first degree relative Father Family history of coronary artery disease Cerebrovascular accident Social History Social History Social History: Surrogate medical decision maker: Eloina Gordillo
[2023-07-27 22:41] VITALS: BP 166/75; PULSE 66; RESP 19; O2SAT 99
--- NOTE | 2023-07-27 22:43 | PC.NURSE ---
pt disconnected from CBI. Bag changed to regular bag. this RN assisted pt in getting dressed. rehabilitation technician at bedside w wheelchair to assist pt out of dept.
== END 2023-07-27 22:44 | disposition home or self-care (01) ==
PROVIDERS: Emergency Provider Emergency Medicine; PCP Nurse Practitioner Family
DX: Z46.6 Encounter for fitting and adjustment of urinary device (principal); N40.1 Benign prostatic hyperplasia with lower urinary tract symptoms; R33.8 Other retention of urine; C90.00 Multiple myeloma not having achieved remission; I12.9 Hypertensive chronic kidney disease with stage 1 through stage 4 chronic kidney disease, or unspecified chronic kidney disease; E11.22 Type 2 diabetes mellitus with diabetic chronic kidney disease; N18.30 Chronic kidney disease, stage 3 unspecified; E78.2 Mixed hyperlipidemia; I27.20 Pulmonary hypertension, unspecified; D64.9 Anemia, unspecified; M47.26 Other spondylosis with radiculopathy, lumbar region; Z85.46 Personal history of malignant neoplasm of prostate; Z87.891 Personal history of nicotine dependence; Z96.1 Presence of intraocular lens; Z98.49 Cataract extraction status, unspecified eye; Z90.79 Acquired absence of other genital organ(s)
CPT/HCPCS: 51700; 99283

== ENCOUNTER 2023-08-18 11:23 | Outpatient (CLI) | payer MEDICARE, SELFPAY ==
--- NOTE | 2023-08-18 11:34 | ECG_ITS ---
Test Date: 2023-08-18 11:55:24 Measurements Intervals [place] Rate: 87 P: 81 MT: 177 QRS: -62 QRSD: 103 T: 79 QT: 350 QTc: 422 Interpretive Statements SINUS RHYTHM INCOMPLETE RIGHT BUNDLE BRANCH BLOCK [90+ ms QRS DURATION, TERMINAL R IN V1/V2, 40+ ms S IN I/aVL/V4/V5/V6] LEFT ANTERIOR FASCICULAR BLOCK [QRS AXIS <= -45, QR IN I, RS IN II] No previous ECG available for comparison Electronically Signed On 08-18-2023 12:20:19 CDT by Addison David M.D.
[2023-08-18 12:32] LABS: Basophils Absolute Auto 0.1 K/mm3 (0.0-0.1); Basophils Percent Auto 0.4 % (0.2-1.2); Eosinophils Percent Auto 0.3 % (0-4.4); Hematocrit 23.1 % (42.0-52.0); Hemoglobin 7.6 g/dL (14.0-18.0); Immature Granulocyte Percent A 0.8 % (0-0.5); Immature Platelet Fraction Pct 5.5 % (0.9-11.2); Lymphocytes Percent Auto 9.3 % (18.3-44.2); Mean Corpuscular HGB Conc 32.9 g/dl (32-36); Mean Corpuscular Hemoglobin 31.5 pg (26-34); Mean Corpuscular Volume 95.9 fl (80-100); Mean Platelet Volume 11.6 fl (7.4-10.4); Monocytes Absolute Auto 1.3 K/mm3 (0.1-0.6); Monocytes Percent Auto 10.2 % (2.6-8.5); Neutrophils Absolute Auto 10.2 K/mm3 (1.3-6.7); Platelet Count Result 142 k/mm3 (150-375); Red Blood Count 2.41 M/mm3 (4.6-6.20); Red Cell Distribution Width 13.7 % (11.5-14.5); White Blood Count 12.9 K/mm3 (4.5-10.0)
[2023-08-18 12:41] LABS: INR 1.2; Prothrombin Time 15.4 Seconds (11.1-14.7)
[2023-08-18 12:42] LABS: Partial Thromboplastin Time 38.2 Seconds (22.3-36.8)
[2023-08-18 12:53] LABS: Anion Gap 10 mmol/L (4-12); Blood Urea Nitrogen 35 mg/dL (9-20); Carbon Dioxide 28 mmol/L (22-30); Chloride 100 mmol/L (98-107); Estimated Glomerular Filt Rate 26; Glucose 148 mg/dL (65-110); Potassium 4.8 mmol/L (3.4-5.0); Sodium 138 mmol/L (137-145)
== END 2023-08-18 11:24 | disposition home or self-care (01) ==
PROVIDERS: PCP Nurse Practitioner Family; Visit Provider Urology
DX: C61 Malignant neoplasm of prostate (principal); E11.9 Type 2 diabetes mellitus without complications
CPT/HCPCS: 36415; 80048; 85025; 85055; 85610; 85730; 87077; 87086; 87088; 87181; 93005

== ENCOUNTER 2023-08-21 14:54 | Emergency (ER) | payer MEDICARE, SELFPAY ==
--- NOTE | ~2023-08-21 | CT_ITS ---
EXAMINATION: CT abdomen pelvis wo con DATE: 08/21/2023 16:45 INDICATION: Abdominal pain and constipation. TECHNIQUE: Computed tomography (CT) of the abdomen and pelvis was performed without intravenous contr ast. Automated exposure control and iterative reconstruction technique were employed. The dose-length product was 221.15 mGy-cm. COMPARISON: None FINDINGS: Small calcified nodules in the right lower lobe along with a few hepatic and more numerous splenic ca lcifications consistent with consistent with old granulomatous disease. Heart size is normal. Atheros clerotic coronary artery calcifications. No pericardial or pleural effusion. Gallbladder, pancreas an d bilateral adrenal glands are normal. 4.3 cm exophytic cyst at the upper pole of the left kidney. Th ere is moderate right hydroureteronephrosis which extends to the bladder where there is prominent non uniform wall thickening along the posterior bladder which is concerning for malignancy. Gas and a Fol ey catheter within the bladder. Prostatomegaly. No bowel obstruction. Large amount stool scattered th roughout the colon suggestive of constipation. No free intraperitoneal gas or fluid. No pathologicall y enlarged abdominal or pelvic lymphadenopathy. Severe lower lumbar spondylosis. Multiple scattered s clerotic bone lesions in the visualized spine, pelvis and proximal femurs consistent with osseous met astatic disease. IMPRESSION: 1. Large amount stool scattered throughout the colon consistent with provided history of constipation . 2. Persistent moderate right hydroureteronephrosis extending to the region of prominent nonuniform wa ll thickening at the posterior bladder suspicious for malignancy either bladder cancer or extension o f prostate cancer from the enlarged prostate. 3. Multiple scattered sclerotic bone lesions suspicious for osseous metastatic disease. Reviewed, dictated and finalized at location A. IMPRESSION: 1. Large amount stool scattered throughout the colon consistent with provided h istory of constipation. 2. Persistent moderate right hydroureteronephrosis extending to the region of p rominent nonuniform wall thickening at the posterior bladder suspicious for mal ignancy either bladder cancer or extension of prostate cancer from the enlarged prostate. 3. Multiple scattered sclerotic bone lesions suspicious for osseous metastatic disease.
[2023-08-21 14:53] VITALS: BP 156/92; PULSE 90; RESP 14; TEMP 36.6; O2SAT 96
[2023-08-21 15:13] LABS: Basophils Percent Auto 0.4 % (0.2-1.2); Eosinophils Absolute Auto 0.1 K/mm3 (0-0.3); Hematocrit 21.5 % (42.0-52.0); Hemoglobin 7.1 g/dL (14.0-18.0); Immature Granulocyte Absolute 0.06 K/mm3 (0.00-0.031); Immature Granulocyte Percent A 0.6 % (0-0.5); Lymphocytes Absolute Auto 1.09 K/mm3 (0.9-3.2); Lymphocytes Percent Auto 11.2 % (18.3-44.2); Mean Corpuscular Hemoglobin 31.1 pg (26-34); Mean Corpuscular Volume 94.3 fl (80-100); Mean Platelet Volume 11.2 fl (7.4-10.4); Neutrophils Absolute Auto 7.5 K/mm3 (1.3-6.7); Neutrophils Percent Auto 76.8 % (45.5-73.1); Platelet Count Result 134 k/mm3 (150-375); Red Blood Count 2.28 M/mm3 (4.6-6.20); Red Cell Distribution Width 13.7 % (11.5-14.5); White Blood Count 9.7 K/mm3 (4.5-10.0)
--- NOTE | 2023-08-21 15:26 | ED.RECABL ---
HPI - Recheck/Abnormal Lab/Rx General Chief Complaint: Recheck/Abnormal Lab/Rx Stated Complaint: abn labs Time Seen by Provider: 08/21/23 15:16 History of Present Illness HPI narrative: Patient is an 82-year-old male with history of multiple myeloma, chronic anemia, known bladder mass, chronic indwelling Arnold catheter here with abnormal labs outpatient. Patient states that he is scheduled for a urological procedure on August 24 and had lab work drawn. He was notified by his primary care doctor that his calcium is extremely high and he should come into the emergency department to be evaluated and treated. Patient and deny any confusion. They do note he has had some abdominal pains and discomfort and his last bowel movement was approximately 1 week ago. They note he chronically struggles with constipation. He did 1 dose of Ex-Lax yesterday without relief of his constipation. at bedside notes that they were contacted just prior to coming into the emergency department and informed by the urology service that he has a urinary tract infection and antibiotics were called into his pharmacy. They have not picked up these up yet. Patient denies any fever or chills. He denies any hematuria. He has not required blood transfusion in the past. He denies any blood in his stool. Related Data Home Medications Medication Instructions Recorded Confirmed latanoprost 0.005 % eye drops 1 drop ophthalmic (eye) QPM 10/11/19 08/13/23 cyanocobalamin (vitamin B-12) 1,000 mcg PO DAILY 05/06/22 08/13/23 1,000 mcg tablet ferrous sulfate 325 mg (65 mg 325 mg PO DAILY 05/06/22 08/13/23 iron) tablet (FeroSul) fluticasone propionate 50 1 spray intranasal PRN PRN Allergy 07/16/23 08/13/23 mcg/actuation nasal Symptoms spray,suspension (Flonase Allergy Relief) loperamide 2 mg capsule 2 mg PO Q4H PRN Diarrhea 07/16/23 08/13/23 multivitamin 1 tablet PO DAILY 07/16/23 08/13/23 tamsulosin 0.4 mg capsule 0.4 mg PO DAILY 07/16/23 08/13/23 Allergies Allergy/AdvReac Type Severity Reaction Status Date / Time pioglitazone Allergy Mild rash Verified 08/13/23 08:44 latex Allergy Unknown Verified 08/13/23 08:44 Sulfa (Sulfonamide Allergy Rash Verified 08/13/23 08:44 Antibiotics) Review of Systems Review of Systems: All systems reviewed & are unremarkable except as noted in HPI and below PMFSH Past Medical History Medical History (Updated 08/21/23 @ 18:55 by Lianne Valencia MD) Chronic anemia Chronic kidney disease, stage 3 Dyslipidemia Dysuria Essential hypertension Heart disease Heart murmur Mixed hyperlipidemia Multiple myeloma (01/2014) Relapsed May 2022. Followed by Dr. Galeas. Osteoarthritis of spine with radiculopathy, lumbar region Prostate cancer (07/2018) Pulmonary hypertension Rhinitis Serum calcium elevated Type 2 diabetes mellitus Weakness of both lower extremities Surgical History Surgical History History of cataract extraction with lens replacement History of colonoscopy (03/2009) Screening colonoscopy per Dr. Nuno: internal hemorrhoids and sigmoid diverticulosis. 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 Family History Family History Mother Family history of pancreatic cancer Patient's mother is Family history of malignant neoplasm Diabetes mellitus Hypertension Heart disease Sibling Family history of pancreatic cancer Family history of malignant neoplasm of breast in first degree relative Father Family history of coronary artery disease Cerebrovascular accident Social History Social History (Reviewed 07/27/23 @ 22:26 by Paulino
[2023-08-21 15:28] LABS: Alanine Aminotransferase 10 U/L (6-50); Alkaline Phosphatase 198 U/L (38-126); Anion Gap 13 mmol/L (4-12); Aspartate Amino Transferase 24 U/L (17-59); Bilirubin,Total 0.5 mg/dL (0.2-1.3); Blood Urea Nitrogen 50 mg/dL (9-20); Calcium 11.6 mg/dL (8.4-10.2); Carbon Dioxide 25 mmol/L (22-30); Chloride 100 mmol/L (98-107); Estimated CRCL calculation 16 ml/min; Estimated Glomerular Filt Rate 25; Glucose 115 mg/dL (65-110); Potassium 4.3 mmol/L (3.4-5.0); Sodium 138 mmol/L (137-145)
[2023-08-21] MEDS: LACTATED RINGERS 1,000 ML 999 ML IV CONT (17:06)
[2023-08-21 19:17] VITALS: BP 140/62; PULSE 82; RESP 18; TEMP 36.8; O2SAT 99
== END 2023-08-21 19:19 | disposition home or self-care (01) ==
PROVIDERS: Emergency Medicine; Emergency Provider Student in an Organized Health Care Education/Training Program; PCP Nurse Practitioner Family
DX: E83.52 Hypercalcemia (principal); D64.9 Anemia, unspecified; K59.00 Constipation, unspecified; C90.00 Multiple myeloma not having achieved remission; N32.89 Other specified disorders of bladder; I13.10 Hypertensive heart and chronic kidney disease without heart failure, with stage 1 through stage 4 chronic kidney disease, or unspecified chronic kidney disease; N18.30 Chronic kidney disease, stage 3 unspecified; I27.20 Pulmonary hypertension, unspecified; E78.2 Mixed hyperlipidemia; M47.816 Spondylosis without myelopathy or radiculopathy, lumbar region; Z85.46 Personal history of malignant neoplasm of prostate; Z87.891 Personal history of nicotine dependence; M89.9 Disorder of bone, unspecified; Z79.84 Long term (current) use of oral hypoglycemic drugs
CPT/HCPCS: 36415; 74176; 80053; 85025; 96360; 99284; J7120

== ENCOUNTER 2023-08-25 00:16 | Day surgery (SDC) | payer MEDICARE, SELFPAY ==
--- NOTE | 2023-07-16 10:03 | PC.NURSE ---
Report to the Outpatient Waiting Room, entrance under the green pavilion located off [facility], at time __9:00 AM on date _07/21/23 . Planned Procedure Time: __1100 AM . Time changes happen often and if your time is changed the preop area will call you the afternoon before. - You and your visitor will be asked to self-screen and do not enter if you have any COVID symptoms. - A mask is optional within the hospital at this time. Patients may have clear liquids (water, carbonated beverages, clear teas, apple juice) until 3 hours prior to surgery ( 8:00 AM)with a maximum of 20 ounces. - No food from midnight until time of surgery - Infants may have breast milk until 4 hours before surgery, infant formula 6 hours prior to surgery. - Children will be allowed to drink immediately following surgery. If applicable, please bring a bottle or sippy cup to assist with drinking. Juice, water, soda, and popsicles are readily available. For infants on formula, please bring formula the day of surgery. Pacifiers are allowed. Take the following medications with a SIP of water the morning of surgery: __CARVEDILOL DO NOT STOP ANY OF YOUR OTHER PRESCRIPTION MEDICATIONS PRIOR TO SURGERY ?EXCEPT THE FOLLOWING Medications to discontinue per physician ____HOLD ALL VITAMINS AND SUPPLEMENTS 3 DAYS PRE OP .LAST DOSE 07/17/23 Please no make-up, nail vietnamese, hairspray, perfume, deodorant, or body powder the day of surgery. No jewelry (including any body piercings) or valuables the day of surgery, leave them at home. Please take a shower or bath the night before, or the morning of, surgery with an antibacterial soap. Wear comfortable, loose fitting clothing. Children are encouraged to wear pajamas. - Jewelry must be removed prior to entering the operating room. Rings and piercings that are not removed may be cut off. - The hospital will not accept responsibility for valuables. - Please leave all valuables, including medications, at home the day of surgery. If you are going home after surgery, a licensed trash truck driver must drive you home. - NO public transportation without another adult if you receive anesthesia. - We recommend that an adult stay with you for 24 hours following discharge. - We also recommend that you do not drive, make important decision, drink alcoholic beverages, or take any drugs that were not prescribed by your health care provider for at least 24 hours after your discharge time. Follow any additional instructions given to you from your surgeon. If you or anyone in your household have experienced Covid symptoms in the past week, please notify your surgeon or the nurse liaison at the phone number below for possible testing. Telephone instructions given to _WIFE IVAN and asked if any additional questions and then verbalized understanding. Patient advised to call surgeon office or pre surgery nurse liaison [phone] if any additional questions.
[2023-07-16 10:15] VITALS: BMI 18.1
--- NOTE | 2023-08-13 08:47 | PC.NURSE ---
Report to the Outpatient Waiting Room, entrance under the green pavilion located off [facility], at time ___9:00 AM____ on date _08/25/23 . Planned Procedure Time: _11:00 AM . Time changes happen often and if your time is changed the preop area will call you the afternoon before. - You and your visitor will be asked to self-screen and do not enter if you have any COVID symptoms. - A mask is optional within the hospital at this time. Patients may have clear liquids (water, carbonated beverages, clear teas, apple juice) until 3 hours prior to surgery ( 8:00AM)with a maximum of 20 ounces. - No food from midnight until time of surgery - Infants may have breast milk until 4 hours before surgery, infant formula 6 hours prior to surgery. - Children will be allowed to drink immediately following surgery. If applicable, please bring a bottle or sippy cup to assist with drinking. Juice, water, soda, and popsicles are readily available. For infants on formula, please bring formula the day of surgery. Pacifiers are allowed. Take the following medications with a SIP of water the morning of surgery: CARVEDILOL, DO NOT STOP ANY OF YOUR OTHER PRESCRIPTION MEDICATIONS PRIOR TO SURGERY ?EXCEPT THE FOLLOWING Medications to discontinue per physician ___ALL VITAMINS AND SUPPLEMENTS 3 DAYS PRE OP . LAST DOSE 08/21/23 Please no make-up, nail samoan, hairspray, perfume, deodorant, or body powder the day of surgery. No jewelry (including any body piercings) or valuables the day of surgery, leave them at home. Please take a shower or bath the night before, or the morning of, surgery with an antibacterial soap. Wear comfortable, loose fitting clothing. Children are encouraged to wear pajamas. - Jewelry must be removed prior to entering the operating room. Rings and piercings that are not removed may be cut off. - The hospital will not accept responsibility for valuables. - Please leave all valuables, including medications, at home the day of surgery. If you are going home after surgery, a licensed bulk delivery driver must drive you home. - NO public transportation without another adult if you receive anesthesia. - We recommend that an adult stay with you for 24 hours following discharge. - We also recommend that you do not drive, make important decision, drink alcoholic beverages, or take any drugs that were not prescribed by your health care provider for at least 24 hours after your discharge time. Follow any additional instructions given to you from your surgeon. If you or anyone in your household have experienced Covid symptoms in the past week, please notify your surgeon or the nurse liaison at the phone number below for possible testing. Telephone instructions given to _PATIENT'S IVAN and asked if any additional questions and then verbalized understanding. Patient advised to call surgeon office or pre surgery nurse liaison [phone] if any additional questions.
--- NOTE | 2023-08-13 08:55 | PC.NURSE ---
STATES NO CHANGE IN HEALTH HX SINCE LAST INTERVIEW 07/16/23
--- NOTE | 2023-08-18 13:00 | PC.NURSE ---
CRITICAL CA+ LEVEL OF 12 CALLED TO PCP OFFICE NO ANSWER - MESSAGE LEFT ON VM.
--- NOTE | 2023-08-18 13:14 | PC.NURSE ---
PCP OFFICE CALLED SPOKE WITH TAO - STATES HAS PUT IN ORDER TO REPEAT CA+ LEVEL AND THAT SHE WILL BE CONTACTING PT INFORM HIM OF LAB WORK ORDERED.
[2023-08-25] VITALS (10 sets, daily range): BP systolic 102–199; BP diastolic 51–81; PULSE 49–74; RESP 10–18; TEMP 36.3–37; O2SAT 96–100
[2023-08-25 08:50] LABS: Glucose Point of Care 124 mg/dl (65-105)
--- NOTE | 2023-08-25 09:42 | SUR.PREOP ---
pt had a +urine culture prior to procedure today. pt has been taking abx since thursday. did not take today. dr alegria aware. ok to proceed.
--- NOTE | 2023-08-25 09:48 | PM.IMHP ---
H&P: HPI History of Present Illness Date/Time: 08/25/23 09:48 Chief Complaint: Prostate carcinoma with local recurrence Narrative: 82-year-old male with history of prostate cancer. Patient has been treated with hormonal therapy in doing well from that standpoint. He had some voiding issues which prompted a cystoscopy and that revealed what appears to be invasion at the bladder neck and trigonal area. He now presents for TUR of lesion with cysto bilateral retrogrades and bilateral stent placements. He is aware that it for unable place stents that that would require nephrostomy tube at some point. Review of Systems Review of Systems: All systems reviewed & are unremarkable except as noted in HPI and below PMFSH Past Medical History Medical History Chronic anemia Chronic kidney disease, stage 3 Dyslipidemia Dysuria Essential hypertension Heart disease Heart murmur Mixed hyperlipidemia Multiple myeloma (01/2014) Relapsed May 2022. Followed by Dr. Galeas. Osteoarthritis of spine with radiculopathy, lumbar region Prostate cancer (07/2018) Pulmonary hypertension Rhinitis Serum calcium elevated Type 2 diabetes mellitus Weakness of both lower extremities Surgical History Surgical History History of cataract extraction with lens replacement History of colonoscopy (03/2009) Screening colonoscopy per Dr. Nuno: internal hemorrhoids and sigmoid diverticulosis. 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 Family History Family History Mother Family history of pancreatic cancer Patient's mother is Family history of malignant neoplasm Diabetes mellitus Hypertension Heart disease Sibling Family history of pancreatic cancer Family history of malignant neoplasm of breast in first degree relative Father Family history of coronary artery disease Cerebrovascular accident Social History Social History Social History: Surrogate medical decision maker: Eloina Finnegan, spouse. Code status: Full code. Smoking packs per day: 0.5 Smoking cigarettes per day: 10.0 Years smoked: 10 Smoking pack-years: 5.00 Smoking status: Never smoker Smokeless tobacco user: chewing tobacco Second hand tobacco smoke exposure: No Alcohol intake: never Substance use: never Substance use type: does not use Lack of Transportation: No Lack of Food: Never True Current Housing: I Have Housing Concerned About Future Housing: No Difficulty Paying Gas/Electric Bills: No Difficulty Paying for Meds: No Currently Unemployed: No Education: High School Diploma/GED Difficulty w/ Childcare or Family Care: No Living arrangements: with family Additional living arrangements comments: Lives with spouse. The 2 sons. Additional occupation/education comments: Retired from [employer]. Spiritual care concerns: No Meds Home Medications and Allergies Home Medications Medication Instructions Recorded Confirmed Type latanoprost 0.005 % eye drops 1 drop ophthalmic (eye) QPM 10/11/19 08/13/23 History cyanocobalamin (vitamin B-12) 1,000 mcg PO DAILY 05/06/22 08/13/23 History 1,000 mcg tablet ferrous sulfate 325 mg (65 mg 325 mg PO DAILY 05/06/22 08/13/23 History iron) tablet (FeroSul) carvedilol 12.5 mg tablet 12.5 mg PO Q12H #60 tabs 08/05/22 08/13/23 Rx glipizide 5 mg tablet 2.5 mg PO BID #90 tabs 08/18/22 08/13/23 Rx fluticasone propionate 50 1 spray intranasal PRN PRN Allergy 07/16/23 08/13/23 History mcg/actuatio
[2023-08-25] MEDS: LACTATED RINGERS 1,000 ML 30 ML IV CONT (10:00)
--- NOTE | 2023-08-25 10:40 | WPDHPUPDATE1 ---
History and Physical Update Update Date/Time: 08/25/23 10:40 History and Physical has been reviewed, including an updated exam of the patient. There are NO changes in the patient's condition. Risks, benefits, and alternatives have been discussed and questions answered. Patient agrees to proceed with procedure.
--- NOTE | 2023-08-25 10:41 | WPDANESEPPF ---
Anes - Initial Pre Proc Eval Procedure: Operation Date: 08/25/23 11:00 Proposed Procedures p Trans Urethral Resection Prostate - Lance Cho MD s Cystoscopy, Possible Bilateral Retrograde Pyelogram with Ureteral Stent Placement - Lance Cho MD Date/Time: 08/25/23 10:41 Surgeon: Lance Cho MD Pre Op Diagnosis: Prostate Ca Patient Data Age: 82 Gender: M Height: 1.75 m Weight: 55.8 kg Last Vital Signs Temp 98.6 F 08/25/23 10:00 Pulse 74 08/25/23 10:00 Resp 14 08/25/23 10:00 BP 104/53 L 08/25/23 10:00 Pulse Ox 100 08/25/23 10:00 O2 Del Method Room Air 08/25/23 10:00 Allergies Allergy/AdvReac Type Severity Reaction Status Date / Time pioglitazone Allergy Mild rash Verified 08/25/23 10:26 latex Allergy Unknown Verified 08/25/23 10:26 Sulfa (Sulfonamide Allergy Rash Verified 08/25/23 10:26 Antibiotics) Home Medications Medication Instructions Recorded Confirmed Type latanoprost 0.005 % eye drops 1 drop ophthalmic (eye) QPM 10/11/19 08/13/23 History cyanocobalamin (vitamin B-12) 1,000 mcg PO DAILY 05/06/22 08/13/23 History 1,000 mcg tablet ferrous sulfate 325 mg (65 mg 325 mg PO DAILY 05/06/22 08/13/23 History iron) tablet (FeroSul) carvedilol 12.5 mg tablet 12.5 mg PO Q12H #60 tabs 08/05/22 08/25/23 Rx glipizide 5 mg tablet 2.5 mg PO BID #90 tabs 08/18/22 08/13/23 Rx fluticasone propionate 50 1 spray intranasal PRN PRN Allergy 07/16/23 08/13/23 History mcg/actuation nasal Symptoms spray,suspension (Flonase Allergy Relief) loperamide 2 mg capsule 2 mg PO Q4H PRN Diarrhea 07/16/23 08/13/23 History multivitamin 1 tablet PO DAILY 07/16/23 08/13/23 History tamsulosin 0.4 mg capsule 0.4 mg PO DAILY 07/16/23 08/13/23 History tramadol 50 mg tablet 50 mg PO BID PRN pain #180 tabs 08/04/23 08/13/23 Rx polyethylene glycol 3350 17 17 g PO BID PRN constipation #119 08/21/23 Rx gram/dose oral powder (Miralax) grams Laboratory Tests 08/25/23 08:45 POC Capillary Glucose 124 H mg/dl (65-105) Patient hx anesthesia problems: none Family hx anesthesia problems: none Results Review: All pre-operative results and documents have been reviewed as part of the pre-operative evaluation. [facility] Past Medical History Medical History Chronic anemia Chronic kidney disease, stage 3 Dyslipidemia Dysuria Essential hypertension Heart disease Heart murmur Mixed hyperlipidemia Multiple myeloma (01/2014) Relapsed May 2022. Followed by Dr. Galeas. Osteoarthritis of spine with radiculopathy, lumbar region Prostate cancer (07/2018) Pulmonary hypertension Rhinitis Serum calcium elevated Type 2 diabetes mellitus Weakness of both lower extremities Surgical History Surgical History History of cataract extraction with lens replacement History of colonoscopy (03/2009) Screening colonoscopy per Dr. Nuno: internal hemorrhoids and sigmoid diverticulosis. 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 Family History Family History Mother Family history of pancreatic cancer Patient's mother is Family history of malignant neoplasm Diabetes mellitus Hypertension Heart disease Sibling Family history of pancreatic cancer Family history of malignant neoplasm of breast in first degree relative Father Family history of coronary artery disease Cerebrovascular accident Social History Social History Social History: Surrogate medical decisio
[2023-08-25] MEDS: ceFAZolin 2 GM/D5W 50 ML 2 GM/50 ML BAG IVPB (11:03)
[2023-08-25] MEDS: LIDOCAINE HCL 2% GEL UROJET 10 ML PKG MUCOUS MEM (11:23)
--- NOTE | 2023-08-25 11:28 | SUR.OPER ---
patient arrived with latex lee in. Surgeon aware. Latex allergy listed and states unknown to reaction. No reactions noted around catheter insertion site.
--- NOTE | 2023-08-25 11:30 | SUR.OPER ---
Catheter removed on arrival with 100ml clear rajesh u/a in bag.
--- NOTE | 2023-08-25 12:15 | W.PM.PROC2 ---
Procedure Note - Detailed Date of Procedure 08/25/23 Pre-op Diagnosis Prostate Ca Post-op Diagnosis Same Procedure Performed Cystoscopy with transurethral resection of prostate Surgeon Lance Cho MD Anesthesia General Description of Procedure Patient is taken to the operative suite correctly identified. Once anesthesia was obtained was placed in dorsal lithotomy position and prepped draped usual sterile fashion. The prior Arnold had been removed. Twenty-four [place]ian resectoscope sheath was inserted the bladder. It is difficult to evaluate the bladder as he has very friable prostate which is oozing obstructive in nature and invading the trigone with area. We did resect the prostate and opened channel. We also resected some of the friable tissue overlying the trigonal area. Ureteral orifices were never visualized. At this point the procedure was terminated. Chips were sent for analysis. 2% viscous lidocaine was inserted into the urethra. Twenty-four Mauritanian [address] was [address]. 20 cc in the balloon. This was connected to CBI patient is taken recovery room in stable condition. Plan is to see what his creatinine level does over the next day. He may need upper tract imaging and I have discussed possibility of bilateral nephrostomy tubes. Both states he has a latex allergy he did come to the hospital with a latex catheter and had no problems with it. This completes dictation. Please send a copy of op note to my office. Estimated Blood Loss 50 Drains Yes Packing No Pathology Yes Complications No immediate complications Condition Stable Disposition PACU
[2023-08-25 12:33] LABS: Glucose Point of Care 125 mg/dl (65-105)
[2023-08-25] MEDS: fentaNYL CITRATE INJ (*CRX) 100 MCG/2 ML VIAL 25 MCG IV PUSH ×3 (12:49→13:15)
[2023-08-25] MEDS: ceFAZolin 1 GM/NS 50 ML 1 GM/50 ML BAG IVPB (18:36)
[2023-08-25] MEDS: DOCUSATE SODIUM 100 MG CAPSULE PO (18:36)
[2023-08-25 19:52] LABS: Glucose Point of Care 321 mg/dl (65-105)
--- NOTE | 2023-08-25 21:37 | PM.IMCN ---
Assessment and Plan Assessment and plan (1) Bladder mass: Code(s): N32.89 - Other specified disorders of bladder Status: Acute (2) Acute on chronic anemia: Code(s): D64.9 - Anemia, unspecified Status: Acute (3) Prostate cancer: Onset Date: 07/2018 Code(s): C61 - Malignant neoplasm of prostate Status: Chronic (4) Type 2 diabetes mellitus: Code(s): E11.9 - Type 2 diabetes mellitus without complications Status: Chronic (5) Chronic kidney disease, stage 3: Code(s): N18.30 - Chronic kidney disease, stage 3 unspecified Status: Chronic (6) Hypertension: Code(s): I10 - Essential (primary) hypertension Status: Acute (7) Asymptomatic bradycardia: Code(s): R00.1 - Bradycardia, unspecified Status: Acute Plan HTN uncontrolled Optimize BP meds will hold carvedilol due to bradycardia will start patient on hydralazine and amlodipine antiplatelet therapy as advised Keeping BMI less than 25 Advised low-salt Routine Exercise DM Optimize medications will start insulin and hold glipizide Routine glucose monitoring. Watch for Hypoglycemia. 1800 ADA diet Lifestyle modification HB A1c levels ANEMIA acute on chronic Hgb POA reports of bleeding from the urethra daily H&H 7.1 Tranfuse if hemoglobin less than 7 Continue iron pills CKD cause diabetes/hypertension/anemia/obstructive uropathy serum creatinine 2.5 Avoid nephrotoxic drugs. Monitor antihypertensive drug therapy. Avoid NSAIDs. Routine CMP monitoring GFR. Monitor electrolytes especially potassium. Pharmacy does medications. . History of restless leg syndrome HPI Date of Consult Consult date: 08/25/23 Requesting Physician: Lance Cho MD Primary Care Provider: Kristina Mccollum NP Consult Narrative Narrative: Hubert Finnegan is a 82 year old male with history of BPH, chronic anemia, hypertension, restless leg syndrome, and low back pain. Patient was seen as a consult as he just had TURP done yesterday patient blood pressure has been climbing high patient currently on carvedilol. Patient denies chest pain shortness of breath fever chills nausea vomiting diarrhea. Patient high blood pressure and heart rate running in the 50s. No history of any congestive heart failure. Patient was also noted to have high blood sugar even though he is on small dose of glipizide. Patient denies any complaint is on a continuous bladder irrigation for possible bladder cancer. Patient previous CT scan reviewed. Review of Systems Review of Systems: All systems reviewed & are unremarkable except as noted in HPI and below PMFSH Past Medical History Medical History (Updated 08/25/23 @ 21:45 by Kirby Holly MD) Chronic anemia Chronic kidney disease, stage 3 Dyslipidemia Dysuria Essential hypertension Heart disease Heart murmur Hypertension Mixed hyperlipidemia Multiple myeloma (01/2014) Relapsed May 2022. Followed by Dr. Galeas. Osteoarthritis of spine with radiculopathy, lumbar region Prostate cancer (07/2018) Pulmonary hypertension Rhinitis Serum calcium elevated Type 2 diabetes mellitus Weakness of both lower extremities Surgical History Surgical History History of cataract extraction with lens replacement History of colonoscopy (03/2009) Screening colonoscopy per Dr. Nuno: internal hemorrhoids and sigmoid diverticulosis. 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 Family History Family History Mother Family history of pancreatic cancer Patient's mother is de
[2023-08-25] MEDS: hydrALAZINE HCL 20 MG/ML VIAL 10 MG IV PUSH (22:10)
[2023-08-25] MEDS: HYDROcodone/acetaminophen (*CRX) 5-325 MG TABLET 1 TAB PO (22:57)
[2023-08-25 23:46] LABS: Glucose Point of Care 185 mg/dl (65-105)
[2023-08-26] MEDS: ceFAZolin 1 GM/NS 50 ML 1 GM/50 ML BAG IVPB (03:48)
[2023-08-26 04:00] VITALS: BP 131/57; PULSE 68; RESP 18; TEMP 36.7; O2SAT 98
[2023-08-26 05:39] LABS: Hematocrit 21.8 % (42.0-52.0); Hemoglobin 7.2 g/dL (14.0-18.0)
[2023-08-26 05:49] LABS: Anion Gap 11 mmol/L (4-12); Blood Urea Nitrogen 39 mg/dL (9-20); Calcium 10.2 mg/dL (8.4-10.2); Carbon Dioxide 29 mmol/L (22-30); Chloride 98 mmol/L (98-107); Estimated CRCL calculation 19 ml/min; Estimated Glomerular Filt Rate 29; Glucose 137 mg/dL (65-110); Potassium 4.1 mmol/L (3.4-5.0); Sodium 138 mmol/L (137-145)
--- NOTE | 2023-08-26 07:40 | WPDUROPN2 ---
Progress Note: A&P Assessment and Plan (1) Prostate cancer: Onset Date: 07/2018 Code(s): C61 - Malignant neoplasm of prostate Status: Chronic Assessment and Plan: Status post transurethral resection of prostate which was clearly evident with local recurrence and the source of his obstruction. Unable to locate ureteral orifices. He does have chronic right hydroureter. His creatinine is actually slightly improved at 2.0 today. As he is asymptomatic we have opted to simply follow conservatively at this time. If his creatinine worsens or develops flank pain then he would need a nephrostomy tube placed. If his urine remains clear later this afternoon could possibly be discharged home with Arnold catheter and have it removed in a week. (2) Urinary retention: Code(s): R33.9 - Retention of urine, unspecified Status: Acute Assessment and Plan: See above Subjective Subjective Date/Time Seen: 08/26/23 07:40 Post Op day: 1 (Trans Urethral resection of prostate) Principal diagnosis: Adenocarcinoma of prostate with local recurrence Interval history: Hubert actually without any significant complaints today. Denies any flank pain. Urine is fairly clear with minimal CBI. Will wean to off at this point time. Renal function stable or slightly improved at 2.0 Review of Systems Review of Systems: All systems reviewed & are unremarkable except as noted in HPI and below Exam Const: General: cooperative and comfortable Resp: Effort & Inspection: normal respiratory effort Cardio: Rate: regular rate Urinary Catheter: Urinary Catheter: patent and draining and urine clear Objective Data Vital Signs Vital Signs: Vital Signs - 24 hr 08/25/23 10:00 08/25/23 12:19 08/25/23 12:34 Temperature 37.0 C 36.4 C L Pulse Rate 74 57 L 59 L Respiratory Rate 14 16 12 Blood Pressure 104/53 L 102/64 139/68 Pulse Oximetry 100 100 98 Oxygen Delivery Room Air Simple Face Mask Room Air Oxygen Flow Rate 10 08/25/23 12:49 08/25/23 13:03 08/25/23 13:18 Temperature Pulse Rate 52 L 50 L 52 L Respiratory Rate 12 13 10 L Blood Pressure 129/70 133/58 L 142/79 H Pulse Oximetry 96 97 96 Oxygen Delivery Room Air Room Air Room Air Oxygen Flow Rate 08/25/23 15:02 08/25/23 16:08 08/25/23 18:30 Temperature 36.3 C L 36.5 C Pulse Rate 60 60 Respiratory Rate 18 14 Blood Pressure 153/56 H 198/81 H Pulse Oximetry 100 100 Oxygen Delivery Room Air Oxygen Flow Rate 08/25/23 20:00 08/25/23 23:57 08/25/23 20:00 Temperature 36.6 C 36.5 C Pulse Rate 49 L 57 L Respiratory Rate 17 17 Blood Pressure 199/73 H 128/51 L Pulse Oximetry 100 99 Oxygen Delivery Room Air Oxygen Flow Rate 08/26/23 04:00 Temperature 36.7 C Pulse Rate 68 Respiratory Rate 18 Blood Pressure 131/57 L Pulse Oximetry 98 Oxygen Delivery Oxygen Flow Rate Intake/Output Intake/Output: Intake & Output 08/23/23 08/24/23 08/25/23 08/26/23 23:59 23:59 23:59 23:59 Intake Total 9690 50 Output Total 2900 1250 Balance 6790 -1200 Meds/Results Medications: Active Medications Generic Name Dose Route Start Last Admin Trade Name Freq PRN Reason Stop Dose Admin Hydrocodone Bitart/Acetaminophen 1 tab 08/25/23 13:32 08/25/23 22:57 Hydrocodone/Acetaminophen (*Crx) 5-325 Mg Tablet PO 1 tab Q4H PRN Administration Pain Rated 1-6 Amlodipine Besylate 10 mg 08/26/23 09:00 Amlodipine Besylate 5 Mg Tablet PO QAM [facility] Carvedilol 12.5 mg 08/25/23 21:00 Carvedilol 12.5 Mg Tablet PO Q12H [facility] Cephalexin HCl 500 mg 08/26/23 09:00 Cephalexin 500 Mg Capsule PO QID [facility] Docusate Sodium 100 mg 08/25/23 17:00 08/25/23 18:36 Docusate Sodium 100 Mg Capsule PO 100 mg BID [facility] Administration Ferrous Sulfate 325 mg 08/26/23 09:00 Ferrous Sulfate [address] PO DAILY [facility] Glipizide 2.5 mg 08/25/23 17:00 Glipizide 2.5 Mg Tablet PO
[2023-08-26 08:00] VITALS: BP 126/53; PULSE 63; RESP 14; TEMP 36.6; O2SAT 99
[2023-08-26] MEDS: CEPHALEXIN 500 MG CAPSULE PO ×2 (08:40→12:49)
[2023-08-26] MEDS: TAMSULOSIN HCL 0.4 MG CAPSULE PO (08:40)
[2023-08-26] MEDS: DOCUSATE SODIUM 100 MG CAPSULE PO (08:40)
[2023-08-26] MEDS: FERROUS SULFATE 325 MG TABLET DR PO (08:40)
[2023-08-26] MEDS: amLODIPine BESYLATE 5 MG TABLET 10 MG PO (08:40)
--- NOTE | 2023-08-26 10:43 | WPDANESPN ---
Anes - Prog Note Post-Op Date/Time: 08/26/23 10:43 Cardiovascular status: normal Respiratory status: normal Airway patency: baseline Mental status: baseline Post-Op hydration status: normal Vital Signs: Last Vital Signs Temp 36.6 C 08/26/23 08:00 Pulse 63 08/26/23 08:00 Resp 14 08/26/23 08:00 BP 126/53 L 08/26/23 08:00 Pulse Ox 99 08/26/23 08:00 O2 Del Method Room Air 08/26/23 08:00 O2 Flow Rate 10 08/25/23 12:19 Pain Score (VAS): 05/16 I/O: Intake & Output 08/25/23 08/26/23 08/26/23 23:59 07:59 15:59 Intake Total 5540 50 250 Output Total 100 1250 Balance 5440 -1200 250 Laboratory Tests 08/26/23 04:55 08/26/23 04:55 08/25/23 08/25/23 08/25/23 12:29 19:48 23:43 Hgb Hct Sodium Potassium Chloride Carbon Dioxide Anion Gap BUN Creatinine Estim Creat Clear Calc Estimated GFR Glucose POC Capillary Glucose 125 H 321 H 185 H Calcium 08/26/23 04:55 Hgb 7.2 L Hct 21.8 L Sodium 138 Potassium 4.1 Chloride 98 Carbon Dioxide 29 Anion Gap 11 BUN 39 H D Creatinine 2.20 H Estim Creat Clear Calc 19 Estimated GFR 29 L Glucose 137 H POC Capillary Glucose Calcium 10.2 Post-procedural complaints: none Patient Feedback: Patient satisfied with anesthetic care.
--- NOTE | 2023-08-26 11:09 | P.PNIM_ITS ---
Progress Note: A&P Assessment and Plan (1) Bladder mass: Code(s): N32.89 - Other specified disorders of bladder Status: Acute Assessment and Plan: * Managed per urology * Continue therapy as indicated (2) Acute on chronic anemia: Code(s): D64.9 - Anemia, unspecified Status: Acute Assessment and Plan: * Hgb 7.2 today * baseline is in the 7s * reports of bleeding from the urethra * daily H&H 7.1 * Tranfuse if hemoglobin less than 7 * Continue iron pills (3) Prostate cancer: Onset Date: 07/2018 Code(s): C61 - Malignant neoplasm of prostate Status: Chronic Assessment and Plan: * Being managed by urology * Continue plan as outlined * Stable (4) Type 2 diabetes mellitus: Code(s): E11.9 - Type 2 diabetes mellitus without complications Status: Chronic Assessment and Plan: * Current glucose 137 * Optimize medications will start insulin and hold glipizide * Routine glucose monitoring. * Watch for Hypoglycemia. * 1800 ADA * diet Lifestyle modification * HB A1c levels stable (5) Chronic kidney disease, stage 3: Code(s): N18.30 - Chronic kidney disease, stage 3 unspecified Status: Chronic Assessment and Plan: * Current Creatinine 2.20 * Baseline creatinine all over but around 1.5 * cause diabetes/hypertension/anemia/obstructive uropathy * serum creatinine 2.5 * Avoid nephrotoxic drugs. * Monitor antihypertensive drug therapy. * Avoid NSAIDs. * Routine CMP monitoring GFR. * Monitor electrolytes especially potassium. * Pharmacy does medications. (6) Hypertension: Code(s): I10 - Essential (primary) hypertension Status: Acute Assessment and Plan: * Current blood pressure 121/46 * Blood pressure is high as 199/73 * Most likely related to the procedure * Continue hydralazine amlodipine * Trend blood pressure * Adjust therapy as indicated (7) Asymptomatic bradycardia: Code(s): R00.1 - Bradycardia, unspecified Status: Acute Assessment and Plan: * Heart rate noted to be in the 50s * Currently 73 * Carvedilol held at this time * Trend heart rate * Adjust therapy as indicated (8) Severe protein-calorie malnutrition: Code(s): E43 - Unspecified severe protein-calorie malnutrition Status: Acute Assessment and Plan: * Patient with notable weight loss * BMI 18.2 * Supplements added * Daily weights * Dietitian consult * Regular diet Plan HTN uncontrolled Optimize BP meds will hold carvedilol due to bradycardia will start patient on hydralazine and amlodipine antiplatelet therapy as advised Keeping BMI less than 25 Advised low-salt Routine Exercise DM Optimize medications will start insulin and hold glipizide Routine glucose monitoring. Watch for Hypoglycemia. 1800 ADA diet Lifestyle modification HB A1c levels ANEMIA acute on chronic Hgb POA reports of bleeding from the urethra daily H&H 7.1 Tranfuse if hemoglobin less than 7 Continue iron pills CKD cause diabetes/hypertension/anemia/obstructive uropathy serum creatinine 2.5 Avoid nephrotoxic drugs. Monitor antihypertensive drug therapy. Avoid NSAIDs. Routine CMP monitoring GFR. Monitor electrolyte
--- NOTE | 2023-08-26 11:09 | PM.IMPN ---
Progress Note: A&P Assessment and Plan (1) Bladder mass: Code(s): N32.89 - Other specified disorders of bladder Status: Acute Assessment and Plan: Managed per urology Continue therapy as indicated (2) Acute on chronic anemia: Code(s): D64.9 - Anemia, unspecified Status: Acute Assessment and Plan: Hgb 7.2 today baseline is in the 7s reports of bleeding from the urethra daily H&H 7.1 Tranfuse if hemoglobin less than 7 Continue iron pills (3) Prostate cancer: Onset Date: 07/2018 Code(s): C61 - Malignant neoplasm of prostate Status: Chronic Assessment and Plan: Being managed by urology Continue plan as outlined Stable (4) Type 2 diabetes mellitus: Code(s): E11.9 - Type 2 diabetes mellitus without complications Status: Chronic Assessment and Plan: Current glucose 137 Optimize medications will start insulin and hold glipizide Routine glucose monitoring. Watch for Hypoglycemia. 1800 ADA diet Lifestyle modification HB A1c levels stable (5) Chronic kidney disease, stage 3: Code(s): N18.30 - Chronic kidney disease, stage 3 unspecified Status: Chronic Assessment and Plan: Current Creatinine 2.20 Baseline creatinine all over but around 1.5 cause diabetes/hypertension/anemia/obstructive uropathy serum creatinine 2.5 Avoid nephrotoxic drugs. Monitor antihypertensive drug therapy. Avoid NSAIDs. Routine CMP monitoring GFR. Monitor electrolytes especially potassium. Pharmacy does medications. (6) Hypertension: Code(s): I10 - Essential (primary) hypertension Status: Acute Assessment and Plan: Current blood pressure 121/46 Blood pressure is high as 199/73 Most likely related to the procedure Continue hydralazine amlodipine Trend blood pressure Adjust therapy as indicated (7) Asymptomatic bradycardia: Code(s): R00.1 - Bradycardia, unspecified Status: Acute Assessment and Plan: Heart rate noted to be in the 50s Currently 73 Carvedilol held at this time Trend heart rate Adjust therapy as indicated (8) Severe protein-calorie malnutrition: Code(s): E43 - Unspecified severe protein-calorie malnutrition Status: Acute Assessment and Plan: Patient with notable weight loss BMI 18.2 Supplements added Daily weights Dietitian consult Regular diet Plan HTN uncontrolled Optimize BP meds will hold carvedilol due to bradycardia will start patient on hydralazine and amlodipine antiplatelet therapy as advised Keeping BMI less than 25 Advised low-salt Routine Exercise DM Optimize medications will start insulin and hold glipizide Routine glucose monitoring. Watch for Hypoglycemia. 1800 ADA diet Lifestyle modification HB A1c levels ANEMIA acute on chronic Hgb POA reports of bleeding from the urethra daily H&H 7.1 Tranfuse if hemoglobin less than 7 Continue iron pills CKD cause diabetes/hypertension/anemia/obstructive uropathy serum creatinine 2.5 Avoid nephrotoxic drugs. Monitor antihypertensive drug therapy. Avoid NSAIDs. Routine CMP monitoring GFR. Monitor electrolytes especially potassium. Pharmacy does medications. . History of restless leg syndrome Time Spent With Patient Time: 41 minutes Time with patient: Greater than 35 minutes Subjective Date/time seen: 08/26/23 1030 Interval history: 08/25/232136 Hubert Finnegan is a 82 year old male with history of BPH, chronic anemia, hypertension, restless leg syndrome, and low back pain. Patient was seen as a consult as he just had TURP done yesterday patient blood pressure has been climbing high patient currently on carvedilol. Patient denies chest pain shortness of breath fever chills nausea vomiting diarrhea. Patient high bl
[2023-08-26 11:11] VITALS: BP 121/46; PULSE 73; RESP 14; TEMP 36.6; O2SAT 98; BMI 18.1
[2023-08-26 12:13] LABS: Glucose Point of Care 160 mg/dl (65-105)
--- NOTE | 2023-08-26 13:51 | PM.DS ---
DS: Admitting Diagnosis Discharge Date 08/26/2023 Admitting Diagnosis BPH DS: Discharge Diagnosis Discharge Diagnosis (1) Prostate cancer: Onset Date: 07/2018 Code(s): C61 - Malignant neoplasm of prostate Status: Chronic Assessment and Plan: Status post transurethral resection of prostate which was clearly evident with local recurrence and the source of his obstruction. Unable to locate ureteral orifices. He does have chronic right hydroureter. (2) Urinary retention: Code(s): R33.9 - Retention of urine, unspecified Status: Acute (3) Chronic kidney disease, stage 3: Code(s): N18.30 - Chronic kidney disease, stage 3 unspecified Status: Chronic Assessment and Plan: Creatinine actually slightly improved from recent labs at 2.2 today. Will plan for repeat BMP in 1 week. If he has worsening renal function, may need to consider nephrostomy tube DS: Summary Hospital Course Hospital Course: Hubert Finnegan is an 82-year-old male with a history of prostate cancer, BPH, urinary retention who presented to [facility] on 08/25/2023 to undergo cystoscopy with transurethral resection prostate by Dr. Cho. He tolerated this procedure well. Was started on CBI after. On postoperative day 1, CBI was discontinued and urine remained clear. His renal function remained stable and will continue to be monitored as an outpatient in 1 week. Overall he was doing well and was eager for discharge home. He will continue with Arnold catheter on discharge plan for outpatient follow up with void trial in 1 week. He will continue a course of cephalexin. Will remain on tamsulosin. Discussed worrisome signs and symptoms for which to seek care. He felt comfortable with plans for discharge home. Time Spent with Patient Time attestation: Total time spent providing and/or coordinating discharge services: 35 minutes Time spent: Greater than 30 minutes Exam Narrative: General: Thin, frail, awake, alert, comfortable, no acute distress HEENT: Normocephalic, atraumatic, sclerae anicteric, extremely hard of hearing Respiratory: Normal respiratory effort, no accessory muscle use Abdomen: Nondistended, soft, nontender : 3 way catheter draining clear yellow urine Skin: Normal coloration, warm and dry Neurologic: No focal neuro deficits noted Psychiatric: Appropriate mood and affect, judgment and insight fair DS: Data Data Completed and Pending Completed studies during hospitalization: Pending at discharge 08/25/23 12:17 Surgical [PTH] Routine Labs on day of discharge: Labs from last 24 hours 08/26/23 08/26/23 08/25/23 11:43 04:55 23:43 Hgb 7.2 L Hct 21.8 L Sodium 138 Potassium 4.1 Chloride 98 Carbon Dioxide 29 Anion Gap 11 BUN 39 H D Creatinine 2.20 H Estim Creat Clear Calc 19 Estimated GFR 29 L Glucose 137 H POC Capillary Glucose 160 H 185 H Calcium 10.2 08/25/23 19:48 Hgb Hct Sodium Potassium Chloride Carbon Dioxide Anion Gap BUN Creatinine Estim Creat Clear Calc Estimated GFR Glucose POC Capillary Glucose 321 H Calcium Discharge Plan Discharge Patient Disposition: Home, Self-Care Stand Alone Forms: General Discharge Instructions Follow-up/Referrals: Lance Cho MD [Physician] - 1 Week Discharge Medications: New glipizide 2.5 mg tablet 2.5 mg PO DAILY Qty: 30 0RF amlodipine 10 mg tablet 10 mg PO DAILY Qty: 30 0RF cephalexin 500 mg Capsule 500 mg PO BID 5 Days Qty: 10 0RF hyoscyamine sulfate [Anaspaz] 0.125 mg Tablet,Disintegrating 0.125 mg sublingual Q6H PRN (Reason: Bladder Spasm) Qty: 20 0RF Continued latanoprost 0.005 % drops 1 drop EACH EYE QPM tamsulosin 0.4 mg capsule 0.4 mg PO DAILY multivitamin Tablet 1 tablet PO DAILY fluticasone propionate [Flonase Allergy Relief] 50 mcg/actuation
== END 2023-08-26 15:00 | disposition home or self-care (01) ==
LOC: ANHSURGERY 08:23 → ANH2MED 13:33
PROVIDERS: PCP Nurse Practitioner Family; Visit Provider Urology
PROC: 0VT08ZZ Resection of Prostate, Via Natural or Artificial Opening Endoscopic (ICD-10-PCS; CPT 52601; principal; 2023-08-25 11:00)
DX: C61 Malignant neoplasm of prostate (principal); R33.9 Retention of urine, unspecified; N32.89 Other specified disorders of bladder; N13.4 Hydroureter; R00.1 Bradycardia, unspecified; C90.00 Multiple myeloma not having achieved remission; I13.10 Hypertensive heart and chronic kidney disease without heart failure, with stage 1 through stage 4 chronic kidney disease, or unspecified chronic kidney disease; E11.22 Type 2 diabetes mellitus with diabetic chronic kidney disease; N18.30 Chronic kidney disease, stage 3 unspecified; D64.9 Anemia, unspecified; E78.2 Mixed hyperlipidemia; I27.20 Pulmonary hypertension, unspecified; Z79.84 Long term (current) use of oral hypoglycemic drugs; F17.220 Nicotine dependence, chewing tobacco, uncomplicated
CPT/HCPCS: 52601; 36415; 80048; 82948; 85014; 85018; 88305; A9270; C1769; J0360; J0690; J1100; J1596; J2405; J2704; J3010; J7120

== ENCOUNTER 2023-09-06 07:49 | Emergency (ER) | payer MEDICARE, SELFPAY ==
[2023-09-06] VITALS (12 sets, daily range): BP systolic 136–151; BP diastolic 44–84; PULSE 67–79; RESP 12–21; TEMP 36.3–37; O2SAT 96–100
--- NOTE | ~2023-09-06 | CT_ITS ---
EXAMINATION: CT abdomen pelvis w con DATE: 09/06/2023 09:17 INDICATION: Lower abdominal pain TECHNIQUE: Computed tomography (CT) of the abdomen and pelvis was performed without intravenous contr ast. The dose-length product was 435.93 mGy-cm. COMPARISON: None FINDINGS: Small calcified nodules in the right lower lobe along with a few hepatic and more numerous splenic ca lcifications consistent with consistent with old granulomatous disease. Heart size is normal. Atheros clerotic coronary artery calcifications and aortic valve calcification. No pericardial or pleural eff usion. Gallbladder, pancreas and bilateral adrenal glands are normal. 4.2 cm exophytic cyst at the up per pole of the left kidney. Mild left hydronephrosis without obstructing stone. There is moderate ri ght hydroureteronephrosis which extends to the bladder where there is prominent nonuniform wall thick ening along the posterior bladder which is concerning for malignancy. Gas and a Arnold catheter within the bladder. Status post prostatectomy. No bowel obstruction. Large amount stool scattered throughou t the colon suggestive of constipation. Normal appendix. No free intraperitoneal gas or fluid. No pat hologically enlarged abdominal or pelvic lymphadenopathy. Severe lower lumbar spondylosis. Multiple s cattered sclerotic bone lesions in the visualized spine, pelvis and proximal femurs consistent with o sseous metastatic disease. IMPRESSION: 1. Large amount stool scattered throughout the colon consistent with provided history of constipation . 2. Mild left hydronephrosis and persistent moderate right hydroureteronephrosis extending to the [place] on of prominent nonuniform wall thickening at the posterior bladder suspicious for malignancy either bladder cancer or extension of prostate cancer with suggestion of prior prostatectomy. 3. Multiple scattered sclerotic bone lesions suspicious for osseous metastatic disease. Reviewed, dictated and finalized at location A. IMPRESSION: 1. Large amount stool scattered throughout the colon consistent with provided h istory of constipation. 2. Mild left hydronephrosis and persistent moderate right hydroureteronephrosis extending to the region of prominent nonuniform wall thickening at the posteri or bladder suspicious for malignancy either bladder cancer or extension of pros corrales cancer with suggestion of prior prostatectomy. 3. Multiple scattered sclerotic bone lesions suspicious for osseous metastatic disease.
--- NOTE | 2023-09-06 08:12 | ED.GENADULT ---
HPI - General Adult General Chief complaint: Urogenital-Male Stated complaint: urinary retention Time Seen by Provider: 09/06/23 07:57 History of Present Illness HPI narrative: 82-year-old male presents to the emergency department for evaluation for urinary retention. Patient recently had a Arnold catheter removed at the urology office and states he has been unable to urinate today. Patient presents to the emergency department complaining of low abdominal discomfort. Related Data Home Medications Medication Instructions Recorded Confirmed latanoprost 0.005 % eye drops 1 drop ophthalmic (eye) QPM 10/11/19 08/13/23 cyanocobalamin (vitamin B-12) 1,000 mcg PO DAILY 05/06/22 08/13/23 1,000 mcg tablet ferrous sulfate 325 mg (65 mg 325 mg PO DAILY 05/06/22 08/13/23 iron) tablet (FeroSul) fluticasone propionate 50 1 spray intranasal PRN PRN Allergy 07/16/23 08/13/23 mcg/actuation nasal Symptoms spray,suspension (Flonase Allergy Relief) loperamide 2 mg capsule 2 mg PO Q4H PRN Diarrhea 07/16/23 08/13/23 multivitamin 1 tablet PO DAILY 07/16/23 08/13/23 tamsulosin 0.4 mg capsule 0.4 mg PO DAILY 07/16/23 08/13/23 Allergies Allergy/AdvReac Type Severity Reaction Status Date / Time pioglitazone Allergy Mild rash Verified 09/06/23 07:54 latex Allergy Unknown Verified 09/06/23 07:54 Sulfa (Sulfonamide Allergy Rash Verified 09/06/23 07:54 Antibiotics) Review of Systems Review of Systems: All systems reviewed & are unremarkable except as noted in HPI and below PMFSH Past Medical History Medical History (Updated 09/06/23 @ 11:22 by Santhosh Navarrete MD) Chronic anemia Chronic kidney disease, stage 3 Dyslipidemia Dysuria Essential hypertension Heart disease Heart murmur Hypertension Mixed hyperlipidemia Multiple myeloma (01/2014) Relapsed May 2022. Followed by Dr. Galeas. Osteoarthritis of spine with radiculopathy, lumbar region Prostate cancer (07/2018) Pulmonary hypertension Rhinitis Serum calcium elevated Type 2 diabetes mellitus Weakness of both lower extremities Surgical History Surgical History History of cataract extraction with lens replacement History of colonoscopy (03/2009) Screening colonoscopy per Dr. Nuno: internal hemorrhoids and sigmoid diverticulosis. 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 Family History Family History Mother Family history of pancreatic cancer Patient's mother is Family history of malignant neoplasm Diabetes mellitus Hypertension Heart disease Sibling Family history of pancreatic cancer Family history of malignant neoplasm of breast in first degree relative Father Family history of coronary artery disease Cerebrovascular accident Social History Social History Social History: Surrogate medical decision maker: Eloina Finnegan, spouse. Code status: Full code. Smoking packs per day: 0.5 Smoking cigarettes per day: 10.0 Years smoked: 10 Smoking pack-years: 5.00 Smoking status: Current every day smoker Tobacco type: smokeless tobacco Smokeless tobacco user: chewing tobacco Second hand tobacco smoke exposure: No Alcohol intake: never Substance use: never Substance use type: does not use Do You Feel Safe in your Home?: Yes Lack of Transportation: No Lack of Food: Never True Current Housing: I Have Housing Concerned About Future Housing: No Difficulty Paying Gas/Electric Bills: No Difficulty Paying for Meds: No Currently Unemployed: No Education: High School Diploma/GED D
[2023-09-06 08:28] LABS: Basophils Percent Auto 0.4 % (0.2-1.2); Eosinophils Absolute Auto 0.1 K/mm3 (0-0.3); Eosinophils Percent Auto 1.1 % (0-4.4); Immature Granulocyte Absolute 0.09 K/mm3 (0.00-0.031); Immature Granulocyte Percent A 0.9 % (0-0.5); Lymphocytes Absolute Auto 1.03 K/mm3 (0.9-3.2); Lymphocytes Percent Auto 10.4 % (18.3-44.2); Mean Corpuscular HGB Conc 32.2 g/dl (32-36); Mean Corpuscular Hemoglobin 31.4 pg (26-34); Mean Corpuscular Volume 97.3 fl (80-100); Mean Platelet Volume 10.9 fl (7.4-10.4); Monocytes Percent Auto 10.1 % (2.6-8.5); Neutrophils Absolute Auto 7.7 K/mm3 (1.3-6.7); Neutrophils Percent Auto 77.1 % (45.5-73.1); Platelet Count Result 161 k/mm3 (150-375); Red Blood Count 1.85 M/mm3 (4.6-6.20); Red Cell Distribution Width 13.9 % (11.5-14.5); White Blood Count 9.9 K/mm3 (4.5-10.0)
[2023-09-06 08:32] LABS: Hemoglobin 5.8 g/dL (14.0-18.0)
[2023-09-06 08:49] LABS: Alanine Aminotransferase 11 U/L (6-50); Albumin Level 3.4 g/dL (3.5-5.1); Alkaline Phosphatase 218 U/L (38-126); Anion Gap 8 mmol/L (4-12); Aspartate Amino Transferase 31 U/L (17-59); Bilirubin,Total 0.2 mg/dL (0.2-1.3); Blood Urea Nitrogen 33 mg/dL (9-20); Calcium 10.1 mg/dL (8.4-10.2); Carbon Dioxide 28 mmol/L (22-30); Chloride 104 mmol/L (98-107); Estimated CRCL calculation 31 ml/min; Estimated Glomerular Filt Rate 42; Glucose 123 mg/dL (65-110); Potassium 3.7 mmol/L (3.4-5.0); Sodium 140 mmol/L (137-145)
[2023-09-06 09:45] LABS: Appearance Urine Clear (Clear); Bacteria Urine None Seen /hpf; Bilirubin Urine Negative (Negative); Blood Urine 2+ (Negative); Color Urine Yellow (Yellow); Glucose Urine UA Negative (Negative); Ketones Urine Negative (Negative); Leukocyte Esterase Ur 1+ LEU/UL (Negative); Nitrate Urine Negative (Negative); Non Pathogenic Casts 0-2; Protein Urine 1+ mg/dL (Negative); RBC Urine 21-50 /hpf (0-2); Specific Grav Ur 1.011 (1.001-1.035); Squamous Epithelial Cell Urine None Seen /hpf (Few); Urobilinogen Urine 0.2 mg/dL (<2.0); WBC Urine 21-50 /hpf (0-3); pH Urine 6.5 (5.0-9.0)
[2023-09-06 10:02] LABS: Add Urine Microscopic? YES
[2023-09-06] MEDS: SODIUM CHLORIDE 0.9% IV 250 ML 30 ML IV CONT (10:30)
[2023-09-06] MEDS: TUBING, BLOOD SET 1 EACH XX ×2 (10:30→12:09)
--- NOTE | 2023-09-06 11:53 | PC.NURSE ---
Pt c/o being hungry. made aware. Pt provided with sandwich and drink.
== END 2023-09-06 15:09 | disposition home or self-care (01) ==
PROVIDERS: Emergency Provider Emergency Medicine; PCP Nurse Practitioner Family
DX: N39.0 Urinary tract infection, site not specified (principal); D64.9 Anemia, unspecified; C90.00 Multiple myeloma not having achieved remission; I13.10 Hypertensive heart and chronic kidney disease without heart failure, with stage 1 through stage 4 chronic kidney disease, or unspecified chronic kidney disease; E11.22 Type 2 diabetes mellitus with diabetic chronic kidney disease; N18.30 Chronic kidney disease, stage 3 unspecified; E78.2 Mixed hyperlipidemia; M47.26 Other spondylosis with radiculopathy, lumbar region; I27.20 Pulmonary hypertension, unspecified; F17.210 Nicotine dependence, cigarettes, uncomplicated; F17.220 Nicotine dependence, chewing tobacco, uncomplicated; Z85.46 Personal history of malignant neoplasm of prostate; Z96.1 Presence of intraocular lens; Z98.49 Cataract extraction status, unspecified eye; Z90.79 Acquired absence of other genital organ(s); Z79.84 Long term (current) use of oral hypoglycemic drugs; Z79.899 Other long term (current) drug therapy
CPT/HCPCS: 36415; 36430; 51702; 74177; 80053; 81001; 85025; 86850; 86900; 86901; 86922; 87086; 96360; 96361; 99285; J7050; P9016; Q9967

== ENCOUNTER 2024-01-26 15:29 | Inpatient (IN) | payer MEDICARE, SELFPAY ==
[2024-01-26] VITALS (13 sets, daily range): BP systolic 84–102; BP diastolic 45–81; PULSE 64–86; RESP 14–21; TEMP 36.3–36.6; O2SAT 16–97; BMI 16.0
--- NOTE | ~2024-01-26 | CT_ITS ---
CLINICAL INDICATION: Hematuria and prostate cancer COMPARISON: Examination was compared with multiple prior studies performed most recently on 09/06/2023 and dating back to 07/03/2022. TECHNIQUE: Multiple contiguous axial images of the abdomen and pelvis were performed without the admi nistration of intravenous contrast The dose-length product (DLP) was 315.40 mGy-cm. Automated exposure control and iterative reconstruction technique were employed. FINDINGS/OBSERVATIONS: Visualized lower thorax: Large right and small left-sided pleural effusion. Consolidation within the right lung base. Pleural plaques detected bilaterally. The heart is enlarged, without pericardial effusion. Liver: Innumerable irregular areas of decreased attenuation within the liver, for which diffuse metastatic d isease is suspected. This finding has increased significantly since the previous examination dated . Gallbladder and biliary system: The gallbladder is not visualized. Pancreas: Limited evaluation of the pancreas secondary to the lack of intravenous contrast. Spleen: Punctate calcifications diffusely throughout the spleen consistent with prior granulomatous disease. The remainder of the spleen demonstrates otherwise homogeneous attenuation and is not enlarged measur ing 8 cm in longitudinal dimension. Kidneys: Significant bilateral hydroureteronephrosis. Adrenal glands: Poor visualization secondary to the lack of intravenous contrast and the lack of intra-abdominal fat Gastrointestinal tract: Fecal stasis within the distal colon, which is decompressed and contains residual oral contrast. Appendix: The appendix is not seen. Vasculature: Bulky calcifications within the visualized arterial structures. Lymph nodes: Limited evaluation without intra-abdominal fat and intravenous contrast. Pelvic structures: The bladder is decompressed with a Arnold catheter with extensive soft tissue attenuation along the po sterior and lateral neal, likely also metastatic disease (versus blood products). Body wall and musculoskeletal: Blastic lesions identified diffusely throughout the visualized osseous structures consistent with met astatic disease. IMPRESSION: Findings consistent with widely metastatic prostate cancer, within the liver, bone, and possibly with in the bladder, as detailed above. Large right and small left-sided pleural effusions Reviewed, dictated and finalized at location A. ER MANUFACTURE IMPRESSION: Findings consistent with widely metastatic prostate cancer, within the liver, b one, and possibly within the bladder, as detailed above. Large right and small left-sided pleural effusions
--- NOTE | ~2024-01-26 | XR_ITS ---
XR chest 2V Ordering provider: Ravi Dia MD History: 83 years Male with . chest pain . Comparison: The FINDINGS: MEDIASTINUM: The cardiac silhouette is not enlarged. LUNGS: No pneumothorax. Opacification in the right lower lobe with pleural effusion. Minimal opacific ation in the right and left upper lobes. OTHER: Sclerotic changes in the left tibia. Clinical correlation advised. No free air under the diaph ragm. IMPRESSION: Right basilar atelectasis versus pneumonia with pleural effusion. Follow-up to resolution is advised to exclude underlying mass. Sclerotic changes in the vertebrae. Clinical correlation and further evaluation advised. Reviewed, dictated and finalized at location A. COOK
--- NOTE | 2024-01-26 15:38 | ECG_ITS ---
Test Date: 2024-01-26 15:43:21 Measurements Intervals [place] Rate: 66 P: 0 AK: 0 QRS: -61 QRSD: 96 T: 252 QT: 414 QTc: 435 Interpretive Statements SINUS RHYTHM POSSIBLE RIGHT VENTRICULAR CONDUCTION DELAY LEFT ANTERIOR FASCICULAR BLOCK ANTEROSEPTAL INFARCT, AGE INDETERMINATE BORDERLINE ST-T WAVE ABNORMALITY- INF/LAT LEADS BASELINE ARTIFACT- I, II, III, AVR, AVL, AVF, V1-V6 ABNORMAL ECG Compared to ECG 08/18/2023 11:55:24 NO SIGNIFICANT CHANGE Electronically Signed On 01-26-2024 15:49:17 [employer] WORKER by Guillermo Chappell D.O.
--- NOTE | 2024-01-26 15:44 | ECG_ITS ---
Test Date: 2024-01-26 15:44:52 Measurements Intervals [place] Rate: 66 P: 55 ID: [id number] QRS: -64 QRSD: 92 T: 269 QT: 418 QTc: 439 Interpretive Statements SINUS RHYTHM POSSIBLE RIGHT VENTRICULAR CONDUCTION DELAY LEFT ANTERIOR FASCICULAR BLOCK ANTEROSEPTAL INFARCT, AGE INDETERMINATE ST-T WAVE ABNORMALITY IN LATERAL LEADS- CONSIDER ISCHEMIA BASELINE ARTIFACT- I, II, III, AVR, AVL, AVF, V1-V6 ABNORMAL ECG Compared to ECG 01/26/2024 15:43:21 No significant changes Electronically Signed On 01-27-2024 11:32:41 RESIDENTIAL SPECIALIST by Guillermo Chappell D.O.
[2024-01-26 15:57] LABS: Hematocrit 22.5 % (42.0-52.0); Mean Corpuscular HGB Conc 30.7 g/dl (32-36); Mean Corpuscular Hemoglobin 30.1 pg (26-34); Mean Corpuscular Volume 98.3 fl (80-100); Platelet Count Result 147 k/mm3 (150-375); Red Blood Count 2.29 M/mm3 (4.6-6.20); Red Cell Distribution Width 18.7 % (11.5-14.5); White Blood Count 10.9 K/mm3 (4.5-10.0)
--- NOTE | 2024-01-26 16:00 | PC.NURSE ---
Attempted to collect UA at this time again. Patient states he will try again.
[2024-01-26 16:07] LABS: Alanine Aminotransferase 8 U/L (6-50); Albumin Level 2.7 g/dL (3.5-5.1); Alkaline Phosphatase 592 U/L (38-126); Anion Gap 8 mmol/L (4-12); Aspartate Amino Transferase 116 U/L (17-59); Blood Urea Nitrogen 41 mg/dL (9-20); Calcium 8.4 mg/dL (8.4-10.2); Carbon Dioxide 18 mmol/L (22-30); Chloride 111 mmol/L (98-107); Estimated Glomerular Filt Rate 36; Glucose 83 mg/dL (65-110); Lipase 30 U/L (23-300); Potassium 4.8 mmol/L (3.4-5.0); Sodium 137 mmol/L (137-145)
[2024-01-26 16:08] LABS: INR 1.4; Prothrombin Time 17.9 Seconds (11.1-14.7)
[2024-01-26 16:09] LABS: Partial Thromboplastin Time 42.7 Seconds (22.3-36.8)
[2024-01-26 16:15] LABS: Hemoglobin 6.9 g/dL (14.0-18.0)
[2024-01-26 16:22] LABS: Band Neutrophils Percent 2 % (0-6); Basophils Percent Manual 0 % (0-1); Eosinophils Percent Manual 0 % (0-4); Lymphocytes Absolute Manual 0.43 K/mm3 (1.1-4.5); Lymphocytes Percent Manual 4 % (18-44); Monocytes Absolute Manual 0.76 K/mm3 (0.1-0.90); Monocytes Percent Manual 7 % (3-9); Neutrophils Percent Manual 87 % (46-73); Platelet Estimate Slightly Decreased (Adequate); Total Cells Counted 100; Troponin I 0.027 ng/mL (0.000-0.034)
[2024-01-26 16:23] LABS: Anisocytosis 1+; Hypochromasia 1+; Large Platelets Present
[2024-01-26 16:26] LABS: Atypical Lymphocytes Present; Ovalocytes 1+; Schistocytes None Seen
--- NOTE | 2024-01-26 16:26 | ED_ITS ---
HPI - General Adult General Chief complaint: Chest Pain Stated complaint: cp Time Seen by Provider: 01/26/24 15:44 History of Present Illness HPI narrative: Patient is an 83-year-old male who presents ER from home with reports of chest pain. Reports central. Reports he has had a today and yesterday. Unable to describe any aggravaing or alleviating factors outside of movement. patient found be hypoglycemic at his home. Patient has history of prostate cancer as well as multiple myeloma. reports patient has stopped walking over last month. She reports significant weight loss or last couple of years. Related Data Home Medications Medication Instructions Recorded Confirmed latanoprost 0.005 % eye drops 1 drop ophthalmic (eye) QPM 08/08/13/23 cyanocobalamin (vitamin B-12) 1,000 mcg PO DAILY 05/06/22 08/13/23 1,000 mcg tablet ferrous sulfate 325 mg (65 mg 325 mg PO DAILY 05/06/22 08/13/23 iron) tablet (FeroSul) fluticasone propionate 50 1 spray intranasal PRN PRN Allergy 07/16/23 08/13/23 mcg/actuation nasal Symptoms spray,suspension (Flonase Allergy Relief) loperamide 2 mg capsule 2 mg PO Q4H PRN Diarrhea 07/16/23 08/13/23 multivitamin 1 tablet PO DAILY 07/16/23 08/13/23 tamsulosin 0.4 mg capsule 0.4 mg PO DAILY 07/16/23 08/13/23 Allergies Allergy/AdvReac Type Severity Reaction Status Date / Time pioglitazone Allergy Mild rash Verified 09/06/23 07:54 latex Allergy Unknown Verified 09/06/23 07:54 Sulfa (Sulfonamide Allergy Rash Verified 09/06/23 07:54 Antibiotics) Review of Systems Review of Systems: All systems reviewed & are unremarkable except as noted in HPI and below Constitutional: Constitutional: Denies chills, Reports fatigue and Denies fever(s) ENT: Reports system reviewed and no additional complaints, except as documented Cardiovascular: Cardiovascular: Reports chest pain, Denies rapid heart rate and Denies radiating jaw, neck or arm pain Respiratory: Respiratory: Reports no additional respiratory complaints Gastrointestinal: Gastrointestinal: Reports no additional gastrointestinal complaints [facility] Past Medical History Medical History (Updated 01/26/24 @ 19:21 by Ravi Dia MD) Chronic anemia Chronic kidney disease, stage 3 Dyslipidemia Dysuria Essential hypertension Heart disease Heart murmur Hypertension Mixed hyperlipidemia Multiple myeloma (01/2014) Relapsed May 2022. Followed by Dr. Galeas. Osteoarthritis of spine with radiculopathy, lumbar region Prostate cancer (07/2018) Pulmonary hypertension Rhinitis Serum calcium elevated Type 2 diabetes mellitus Weakness of both lower extremities Surgical History Surgical History History of cataract extraction with lens replacement History of colonoscopy (03/2009) Screening colonoscopy per Dr. Nuno: internal hemorrhoids and sigmoid diverticulosis. 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 Family History Family History Mother Family history of pancreatic cancer Patient's mother is Family history of malignant neoplasm Diabetes mellitus Hypertension Heart disease Sibling Family history of pancreatic cancer Family history of malignant neoplasm of breast in first degree relative Father Family history of coronary artery disease Cerebrovascular accident Social History Social History Social History: Surrogate medical decision maker: Eloina Finnegan, spouse. Code status: Full code. Smoking packs per day: 0.5 Smoking cigarettes per day: 10.0 Years smoked: 10 Smoking pack-years: 5.00 Smoking status: Current every day smoker Tobacco type: smokeless tobacco Smokeless tobacco user: chewing tobacco Second hand tobacco smoke exposure: No Alcohol intake: never Substance use: never Substance use type: does not use Do You Feel Safe in your Home?: Yes Lack of Transportation: No Lack of Food: Never True Current Housing: I Have Housing Concerned About Future Housing: No Difficulty Paying Gas/Electric Bills: No Difficulty Paying for Meds: No Currently Unemployed: No Education: High School Diploma/GED Difficulty w/ Childcare or Family Care: No Living arrangements: with family Additional living arrangements comments: Lives with spouse. The 2 sons. Additional occupation/education comments: Retired from [email or web address]. Spiritual care concerns: No Exam Narrative: GENERAL: Chronically ill-appearing and frail, underweight. No distress. HEAD: Normocephalic, atraumatic. Temporal wasting a EYES: PERRL and EOMI. ENT: Mucous membranes moist. CHEST: Clear to auscultation. No respiratory distress. HEART: Regular rate and rhythm. Normal peripheral pulses. ABDOMEN: Soft, nontender, nondistended. hemoccult negative. EXTREMITIES: Normal range of motion. No edema. SKIN: Warm, dry, no rash. NEURO: Alert and oriented x3. Course Course Emergency Course: Discussed patient's declining health and inability walk with the . Patient is very hard of hearing. Repeat Accu-Chek shows blood sugar is still low. He is having no symptoms. He is eating a KitKat and will be given some D50. Patient is on glipizide. 1st troponin is negative. Hemoglobin critically low. Will provide transfusion. This may help chest discomfort and energy. I discussed hospice will have care coordination discuss options with family at a later point. I do not suspect pneumonia as there is no white count, he has no fever, and he has had no cough or dyspnea. Vital Signs Vital signs: Vital Signs Temperature 97.8 F 01/26/24 15:39 Pulse Rate 67 01/26/24 15:39 Respiratory Rate 16 01/26/24 15:39 Blood Pressure 96/52 L 01/26/24 15:39 Pulse Oximetry 16 L 01/26/24 15:39 Temperature 97.4 F L 01/26/24 18:21 Pulse Rate 79 01/26/24 18:21 Respiratory Rate 16 01/26/24 18:21 Blood Pressure 102/81 01/26/24 18:21 Pulse Oximetry 95 01/26/24 18:21 Oxygen Delivery Room Air 01/26/24 15:45 Medical Decision Making Vital Signs Vital Signs: Vital Signs Temperature 97.8 F 01/26/24 15:39 Pulse Rate 67 01/26/24 15:39 Respiratory Rate 16 01/26/24 15:39 Blood Pressure 96/52 L 01/26/24 15:39 Pulse Oximetry 16 L 01/26/24 15:39 Temperature 97.4 F L 01/26/24 18:21 Pulse Rate 79 01/26/24 18:21 Respiratory Rate 16 01/26/24 18:21 Blood Pressure 102/81 01/26/24 18:21 Pulse Oximetry 95 01/26/24 18:21 Oxygen Delivery Room Air 01/26/24 15:45 Lab Data 01/26/24 15:51 01/26/24 15:51 Labs: Lab Results 01/26/24 01/26/24 01/26/24 Range/Units 15:51 16:39 17:14 WBC 10.9 H (4.5-10.0) K/mm3 RBC 2.29 L (4.6-6.20) M/mm3 Hgb 6.9 L* (14.0-18.0) g/dL Hct 22.5 L (42.0-52.0) % MCV 98.3 (80-100) fl MCH 30.1 (26-34) pg MCHC 30.7 L (32-36) g/dl RDW 18.7 H (11.5-14.5) % Plt Count 147 L (150-375) k/mm3 MPV 11.0 H (7.4-10.4) fl Immature Gran % (Auto) Not Reportable Neut % (Auto) Not Reportable Lymph % (Auto) Not Reportable [place] % (Auto) Not Reportable Eos % (Auto) Not Reportable Baso % (Auto) Not Reportable Lymph # (Auto) Not Reportable [place] # (Auto) Not Reportable Eos # (Auto) Not Reportable Baso # (Auto) Not Reportable Abs Immat Gran (auto) Not Reportable Absolute Neuts (auto) Not Reportable Absolute Nucleated RBC Not Reportable Total Counted 100 Neutrophils % (Manual) 87 H (46-73) % Band Neutrophils % 2 (0-6) % Lymphocytes % (Manual) 4 L (18-44) % Monocytes % (Manual) 7 (3-9) % Eosinophils % (Manual) 0 (0-4) % Basophils % (Manual) 0 (0-1) % Nucleated RBC % Not Reportable Abs Neuts (Manual) 9.70 H (1.3-6.7) K/mm3 Abs Lymphs (Manual) 0.43 L (1.1-4.5) K/mm3 Abs Monocytes (Manual) 0.76 (0.1-0.90) K/mm3 Absolute Eos (Manual) 0.00 L (0.02-0.50) K/mm3 Abs Basophils (Manual) 0.00 (0.0-0.1) K/mm3 Atypical Lymphocytes Present Platelet Estimate Slightly decreased (Adequate) Large Platelets Present Hypochromasia 1+ Anisocytosis 1+ Ovalocytes 1+ Schistocytes None seen PT 17.9 H (11.1-14.7) Seconds INR 1.4 APTT 42.7 H (22.3-36.8) Seconds Sodium 137 (137-145) mmol/L Potassium 4.8 (3.4-5.0) mmol/L Chloride 111 H (98-107) mmol/L Carbon Dioxide 18 L (22-30) mmol/L Anion Gap 8 (4-12) mmol/L BUN 41 H (9-20) mg/dL Creatinine 1.80 H (0.7-1.3) mg/dL Estim Creat Clear Calc Not Reportable Estimated GFR 36 L (59 - ) Glucose 83 (65-110) mg/dL POC Capillary Glucose 55 L* (65-105) mg/dl Calcium 8.4 (8.4-10.2) mg/dL Total Bilirubin 1.0 (0.2-1.3) mg/dL AST 116 H (17-59) U/L ALT 8 (6-50) U/L Alkaline Phosphatase 592 H (38-126) U/L Troponin I 0.027 (0.000-0.034) ng/mL Total Protein 7.0 (6.3-8.2) g/dL Albumin 2.7 L (3.5-5.1) g/dL Lipase 30 (23-300) U/L Blood Type A Positive Antibody Screen Negative Enhanced Crossmatch See Detail 01/26/24 Range/Units 18:10 WBC (4.5-10.0) K/mm3 RBC (4.6-6.20) M/mm3 Hgb (14.0-18.0) g/dL Hct (42.0-52.0) % MCV (80-100) fl MCH (26-34) pg MCHC (32-36) g/dl RDW (11.5-14.5) % Plt Count (150-375) k/mm3 MPV (7.4-10.4) fl Immature Gran % (Auto) Neut % (Auto) Lymph % (Auto) [place] % (Auto) Eos % (Auto) Baso % (Auto) Lymph # (Auto) [place] # (Auto) Eos # (Auto) Baso # (Auto) Abs Immat Gran (auto) Absolute Neuts (auto) Absolute Nucleated RBC Total Counted Neutrophils % (Manual) (46-73) % Band Neutrophils % (0-6) % Lymphocytes % (Manual) (18-44) % Monocytes % (Manual) (3-9) % Eosinophils % (Manual) (0-4) % Basophils % (Manual) (0-1) % Nucleated RBC % Abs Neuts (Manual) (1.3-6.7) K/mm3 Abs Lymphs (Manual) (1.1-4.5) K/mm3 Abs Monocytes (Manual) (0.1-0.90) K/mm3 Absolute Eos (Manual) (0.02-0.50) K/mm3 Abs Basophils (Manual) (0.0-0.1) K/mm3 Atypical Lymphocytes Platelet Estimate (Adequate) Large Platelets Hypochromasia Anisocytosis Ovalocytes Schistocytes PT (11.1-14.7) Seconds INR APTT (22.3-36.8) Seconds Sodium (137-145) mmol/L Potassium (3.4-5.0) mmol/L Chloride (98-107) mmol/L Carbon Dioxide (22-30) mmol/L Anion Gap (4-12) mmol/L BUN (9-20) mg/dL Creatinine (0.7-1.3) mg/dL Estim Creat Clear Calc Estimated GFR (59 - ) Glucose (65-110) mg/dL POC Capillary Glucose 60 L (65-105) mg/dl Calcium (8.4-10.2) mg/dL Total Bilirubin (0.2-1.3) mg/dL AST (17-59) U/L ALT (6-50) U/L Alkaline Phosphatase (38-126) U/L Troponin I (0.000-0.034) ng/mL Total Protein (6.3-8.2) g/dL Albumin (3.5-5.1) g/dL Lipase (23-300) U/L Blood Type Antibody Screen Enhanced Crossmatch Imaging Data Radiologist's impression: ITS Impressions Chest X-Ray 01/26/24 16:14 IMPRESSION: Right basilar atelectasis versus pneumonia with pleural effusion. Follow-up to resolution is advised to exclude underlying mass. Sclerotic changes in the vertebrae. Clinical correlation and further evaluation advised. ECG Data EKG #1: ECG completion date: 01/26/24 ECG completion time: 15:43 EKG Interpretation: normal rate (66), sinus rhythm, ST depression ( The 5/6), normal QRS, normal QT and left axis Critical Care Time Critical Care Time Critical Care Time: Yes Total Critical Care Time: 35 Discharge Plan Discharge Clinical Impression: Anemia, Chest pain Patient Disposition: Still a Patient Condition: Stable Prescriptions: No Action latanoprost 0.005 % drops 1 drop EACH EYE QPM tamsulosin 0.4 mg capsule 0.4 mg PO DAILY multivitamin Tablet 1 tablet PO DAILY fluticasone propionate [Flonase Allergy Relief] 50 mcg/actuation spray,suspension 1 spray intranasal PRN PRN (Reason: Allergy Symptoms) Rx Instructions: administer into each nostril loperamide 2 mg Capsule 2 mg PO Q4H PRN (Reason: Diarrhea) Rx Instructions: administer after each loose stool until symptoms controlled; do not exceed 8 mg per 24 hrs amlodipine 10 mg tablet 10 mg PO DAILY Qty: 30 0RF cephalexin 500 mg Capsule 500 mg PO BID 5 Days Qty: 10 0RF hyoscyamine sulfate [Anaspaz] 0.125 mg Tablet,Disintegrating 0.125 mg sublingual Q6H PRN (Reason: Bladder Spasm) Qty: 20 0RF polyethylene glycol 3350 [Miralax] 17 gram/dose powder 17 g PO BID PRN (Reason: constipation) Qty: 119 0RF cyanocobalamin (vitamin B-12) 1,000 mcg Tablet 1,000 mcg PO DAILY ferrous sulfate [FeroSul] 325 mg (65 mg iron) tablet 325 mg PO DAILY cephalexin 500 mg capsule 500 mg PO Q8H 7 Days Qty: 21 0RF glipizide 5 mg tablet 2.5 mg PO BID Qty: 90 3RF tramadol 50 mg tablet 50 mg PO BID PRN (Reason: pain) Qty: 180 3RF Follow-up/Referrals: Kristina Mccollum NP [Primary Care Provider] - Quality HEART score for chest pain patients History: slightly suspicious ECG: significant ST depression Age: > or = to 65 years Risk factors: 1 or 2 risk factors Troponin: < or = to 1x normal limit Heart score: 5
[2024-01-26] MEDS: TUBING, BLOOD SET 1 EACH XX ×2 (18:06→19:46)
[2024-01-26] MEDS: SODIUM CHLORIDE 0.9% IV 250 ML 30 ML IV CONT (18:06)
[2024-01-26 18:15] LABS: Glucose Point of Care 60 mg/dl (65-105)
[2024-01-26 18:15] LABS: Glucose Point of Care 55 mg/dl (65-105)
[2024-01-26] MEDS: DEXTROSE 50% 25 GM/50 ML SYRINGE IV PUSH (18:20)
--- NOTE | 2024-01-26 19:39 | PM.IMHP ---
H&P: HPI History of Present Illness Date/Time: 01/26/24 19:39 Chief Complaint: Chest pain Narrative: This is an 83-year-old male with past medical history significant for multiple myeloma, type diabetes mellitus, benign prostatic hyperplasia, prostate cancer, hypertension, mixed hyperlipidemia, DJD. patient was brought to the emergency room after he complained chest pain. Most of the history has been obtained upon reviewing medical records. preliminary workup here was significant for chest x-ray with opacity. Patient has been admitted for further evaluation management and treatment. XR chest 2V Ordering provider: Ravi Dia MD History: 83 years Male with . chest pain . Comparison: The FINDINGS: MEDIASTINUM: The cardiac silhouette is not enlarged. LUNGS: No pneumothorax. Opacification in the right lower lobe with pleural effusion. Minimal opacification in the right and left upper lobes. OTHER: Sclerotic changes in the left tibia. Clinical correlation advised. No free air under the diaphragm. IMPRESSION: Right basilar atelectasis versus pneumonia with pleural effusion. Follow-up to resolution is advised to exclude underlying mass. Sclerotic changes in the vertebrae. Clinical correlation and further evaluation advised. Review of Systems Review of Systems: ROS unobtainable: Yes other ( can not really give meaningful details) [facility] [place] Past Medical History Medical History (Updated 01/27/24 @ 01:45 by Jr Morel MD) Chronic anemia Chronic kidney disease, stage 3 Dyslipidemia Dysuria Essential hypertension Heart disease Heart murmur Hypertension Mixed hyperlipidemia Multiple myeloma (01/2014) Relapsed May 2022. Followed by Dr. Galeas. Osteoarthritis of spine with radiculopathy, lumbar region Prostate cancer (07/2018) Pulmonary hypertension Rhinitis Serum calcium elevated Type 2 diabetes mellitus Weakness of both lower extremities Surgical History Surgical History History of cataract extraction with lens replacement History of colonoscopy (03/2009) Screening colonoscopy per Dr. Nuno: internal hemorrhoids and sigmoid diverticulosis. 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 Family History Family History Mother Family history of pancreatic cancer Patient's mother is Family history of malignant neoplasm Diabetes mellitus Hypertension Heart disease Sibling Family history of pancreatic cancer Family history of malignant neoplasm of breast in first degree relative Father Family history of coronary artery disease Cerebrovascular accident Social History Social History Social History: Surrogate medical decision maker: Eloina Finnegan, spouse. Code status: Full code. Smoking packs per day: 0.5 Smoking cigarettes per day: 10.0 Years smoked: 10 Smoking pack-years: 5.00 Smoking status: Former smoker Tobacco type: smokeless tobacco Smokeless tobacco user: chewing tobacco Second hand tobacco smoke exposure: No Alcohol intake: never Substance use: never Substance use type: does not use Do You Feel Safe in your Home?: Yes Lack of Transportation: No Lack of Food: Never True Current Housing: I Have Housing Concerned About Future Housing: No Difficulty Paying Gas/Electric Bills: No Difficulty Paying for Meds: No Currently Unemployed: No Education: High School Diploma/GED Difficulty w/ Childcare or Family Care: No Living arrangements: with family Additional living arrangements comments: Lives with spouse. The 2 sons. Additional occupation/education comments: Retired from [employer]. Spiritual care concerns: No Meds Home Medications and Allergies Home Medications Medication Instructions Recorded Confirmed Type latanoprost 0.005 % eye drops 1 drop ophthalmic (eye) QPM 10/11/19 01/26/24 History cyanocobalamin (vitamin B-12) 1,000 mcg PO DAILY 05/06/22 01/26/24 History 1,000 mcg tablet ferrous sulfate 325 mg (65 mg 325 mg PO DAILY 05/06/22 01/26/24 History iron) tablet (FeroSul) fluticasone propionate 50 1 spray intranasal PRN PRN Allergy 07/16/23 01/26/24 History mcg/actuation nasal Symptoms spray,suspension (Flonase Allergy Relief) tamsulosin 0.4 mg capsule 0.4 mg PO DAILY 07/16/23 01/26/24 History polyethylene glycol 3350 17 17 g PO BID PRN constipation #119 08/21/23 01/26/24 Rx gram/dose oral powder (Miralax) grams amlodipine 10 mg tablet 10 mg PO DAILY #30 tabs 08/26/23 01/26/24 Rx hyoscyamine sulfate 0.125 mg 0.125 mg sublingual Q6H PRN 08/26/23 01/26/24 Rx disintegrating tablet (Anaspaz) Bladder Spasm #20 tabs glipizide 5 mg tablet 2.5 mg PO BID #90 tabs 09/25/23 01/26/24 Rx tramadol 50 mg tablet 50 mg PO BID PRN pain #180 tabs 01/26/24 01/26/24 Rx Allergies Allergy/AdvReac Type Severity Reaction Status Date / Time pioglitazone Allergy Mild rash Verified 01/26/24 20:15 latex Allergy Unknown Verified 01/26/24 20:15 Sulfa (Sulfonamide Allergy Rash Verified 01/26/24 20:15 Antibiotics) Vital Signs Vital Signs - 24 hr 01/26/24 15:39 01/26/24 15:45 01/26/24 18:05 Temperature 97.8 F 97.6 F Pulse Rate 67 78 Respiratory Rate 16 21 H Blood Pressure 96/52 L 92/51 L Pulse Oximetry 16 L 95 Oxygen Delivery Room Air 01/26/24 18:11 01/26/24 18:21 01/26/24 19:10 Temperature 97.4 F L 97.4 F L Pulse Rate 76 79 72 Respiratory Rate 20 16 16 Blood Pressure 96/59 L 102/81 84/49 L Pulse Oximetry 96 95 96 Oxygen Delivery 01/26/24 19:11 Temperature 97.6 F Pulse Rate 72 Respiratory Rate 16 Blood Pressure 84/49 L Pulse Oximetry 96 Oxygen Delivery Exam Narrative: laying in a stretcher Const: General: cooperative, comfortable, no acute distress, well developed, alert, awake, ill appearing chronically and cachectic Nutritional Appearance: cachectic Orientation/consciousness: oriented to person and oriented to place HENMT: Head: normal to inspection, normocephalic and atraumatic Ears: hearing grossly normal bilaterally Face/Nose/Sinus: normal facial exam Face and sinus: normal facial exam Eyes: General: appearance normal, both eyes and all related structures Pupils: Equal, round and reactive pupils present EOM: EOMs intact bilaterally Neck: Neck: full ROM, no lymphadenopathy and no JVD Thyroid: thyroid normal Lymphatic: no lymphadenopathy noted Resp: Effort & Inspection: normal respiratory effort and able to speak in complete sentences Auscultation: clear to auscultation bilaterally Cardio: Jugular venous distension: no JVD Rate: regular rate Rhythm: regular rhythm Heart sounds: S1 normal heart sound present and S2 normal heart sound present GI: GI Palp: Yes Soft to palpation and Yes No hepatosplenomegaly present : General: Yes deferred Skin: Rashes: no rashes Wounds: no wounds Neuro: General: oriented to person, oriented to place, no focal motor deficits, CN's II-XI intact bilaterally and Unable to assess gait Cranial nerves: Yes CN's II-XII intact bilaterally and Yes Equal, round and reactive pupils present Cognition (Neuro): normal cognition Speech: normal speech Gait exam (Neuro): Unable to assess gait Motor exam (neuro): 5/5 motor strength present throughout Extrem: General: normal to inspection, full ROM, no joint enlargement and no pedal edema H&P: Results Labs Labs: Short CBC 01/26/24 Range/Units 15:51 WBC 10.9 H (4.5-10.0) K/mm3 Hgb 6.9 L* (14.0-18.0) g/dL Hct 22.5 L (42.0-52.0) % Plt Count 147 L (150-375) k/mm3 BMP 01/26/24 15:51 Sodium 137 Potassium 4.8 Chloride 111 H Carbon Dioxide 18 L BUN 41 H Creatinine 1.80 H Glucose 83 Calcium 8.4 Cardiac Enzymes 01/26/24 Range/Units 15:51 Troponin I 0.027 (0.000-0.034) ng/mL Liver Function 01/26/24 Range/Units 15:51 Total Bilirubin 1.0 (0.2-1.3) mg/dL AST 116 H (17-59) U/L ALT 8 (6-50) U/L Alkaline Phosphatase 592 H (38-126) U/L Albumin 2.7 L (3.5-5.1) g/dL Assessment and Plan Assessment and plan (1) Pneumonia: Code(s): J18.9 - Pneumonia, unspecified organism Status: Acute Assessment and Plan: Admit to IMU patient started on Rocephin and Zithromax cultures in progress (2) Severe protein-calorie malnutrition: Code(s): E43 - Unspecified severe protein-calorie malnutrition Status: Acute Assessment and Plan: likely secondary to chronic disease (3) Multiple myeloma: Onset Date: 01/2014 Qualifiers: Multiple myeloma remission status: not in remission Qualified Code(s): C90.00 - Multiple myeloma not having achieved remission Code(s): C90.00 - Multiple myeloma not having achieved remission Status: Acute Assessment and Plan: follow-up in outpatient setting (4) Prostate cancer: Onset Date: 07/2018 Code(s): C61 - Malignant neoplasm of prostate Status: Chronic Assessment and Plan: follow-up in outpatient setting (5) Type 2 diabetes mellitus: Code(s): E11.9 - Type 2 diabetes mellitus without complications Status: Chronic Assessment and Plan: holding glipizide (6) Chronic kidney disease, stage 3: Code(s): N18.30 - Chronic kidney disease, stage 3 unspecified Status: Chronic Assessment and Plan: continue to monitor BUN and creatinine Hospitalist MIPS Advance Care Plan I have confirmed that the patient's Advanced Care Plan is present, code status is documented, or surrogate decision maker is listed in patient medical record.: Yes Medication Reconciliation I have utilized all available resources to obtain, update and review the patients current medications (includes all prescriptions, OTC, herbals, cannabis, and nutritional supplements).: Yes
[2024-01-26] MEDS: SODIUM CHLORIDE 0.9% IV 250 ML 30 ML (19:47)
--- NOTE | 2024-01-26 20:06 | PC.NURSE ---
Catheter changed per MD morgan verbal order
[2024-01-26 20:33] LABS: Troponin I 0.029 ng/mL (0.000-0.034)
[2024-01-26 21:13] LABS: Glucose Point of Care 92 mg/dl (65-105)
[2024-01-26 22:18] LABS: Troponin I 0.027 ng/mL (0.000-0.034)
[2024-01-27] VITALS (19 sets, daily range): BP systolic 98–112; BP diastolic 48–75; PULSE 72–102; RESP 14–20; TEMP 36.3–36.8; O2SAT 93–96; BMI 16.7
--- NOTE | 2024-01-27 00:54 | ADMGEN ---
This patient, Hubert Finnegan, was admitted to IMU Room 231-01. Patient/family oriented to hospital policies and general routines including ID bracelet, bed and alarms, visiting hours, pain management, procedures, bathroom and other care routines, personal items, smoking policy, room service/diet, and visiting hours. Information on how to activate the Rapid Response Team has been discussed. Patient/Family are encouraged to report perceived risks to care and to ask questions if they do not understand what they are told or what they should do.
[2024-01-27] MEDS: cefTRIAXone 2 GM/NS 100 ML 2 GM/100 ML BAG IVPB (04:22)
[2024-01-27] MEDS: AZITHROMYCIN 500 MG/NS 250 ML 500 MG/250 ML BAG 250 MG IVPB (04:22)
[2024-01-27 05:02] LABS: Glucose Point of Care 88 mg/dl (65-105)
[2024-01-27 07:27] LABS: Add Urine Microscopic? YES; Appearance Urine Turbid (Clear); Bacteria Urine 1+ /hpf; Color Urine Red (Yellow); Need Manual Microscopic Reviewed; Non Pathogenic Casts 0-2; Specific Grav Ur 1.025 (1.001-1.035); Squamous Epithelial Cell Urine None Seen /hpf (Few); WBC Urine >100 /hpf (0-3)
[2024-01-27 07:35] LABS: RBC Urine >100 /hpf (0-2)
[2024-01-27] MEDS: HYOSCYAMINE SULFATE 0.125 MG TABLET SUBLINGUAL (09:05)
[2024-01-27] MEDS: TAMSULOSIN HCL 0.4 MG CAPSULE PO (09:06)
[2024-01-27] MEDS: FERROUS SULFATE 325 MG TABLET DR BY MOUTH (09:06)
[2024-01-27] MEDS: amLODIPine BESYLATE 10 MG TABLET PO (09:06)
[2024-01-27 09:21] LABS: Hematocrit 31.4 % (42.0-52.0); Hemoglobin 9.8 g/dL (14.0-18.0); Mean Corpuscular HGB Conc 31.2 g/dl (32-36); Mean Corpuscular Hemoglobin 29.1 pg (26-34); Mean Corpuscular Volume 93.2 fl (80-100); Platelet Count Result 169 k/mm3 (150-375); Red Blood Count 3.37 M/mm3 (4.6-6.20); Red Cell Distribution Width 19.5 % (11.5-14.5); White Blood Count 12.7 K/mm3 (4.5-10.0)
[2024-01-27 09:39] LABS: Alanine Aminotransferase 9 U/L (6-50); Albumin Level 2.8 g/dL (3.5-5.1); Alkaline Phosphatase 760 U/L (38-126); Anion Gap 11 mmol/L (4-12); Aspartate Amino Transferase 157 U/L (17-59); Bilirubin,Total 1.2 mg/dL (0.2-1.3); Blood Urea Nitrogen 43 mg/dL (9-20); Calcium 8.7 mg/dL (8.4-10.2); Carbon Dioxide 17 mmol/L (22-30); Chloride 111 mmol/L (98-107); Estimated CRCL calculation 22 ml/min; Estimated Glomerular Filt Rate 36; Glucose 81 mg/dL (65-110); Magnesium 2.3 mg/dL (1.6-2.3); Potassium 4.8 mmol/L (3.4-5.0); Sodium 139 mmol/L (137-145)
[2024-01-27 10:37] LABS: Platelet Estimate Adequate (Adequate)
[2024-01-27 10:38] LABS: Band Neutrophils Percent 8 % (0-6); Lymphocytes Absolute Manual 0.63 K/mm3 (1.1-4.5); Lymphocytes Percent Manual 5 % (18-44); Monocytes Absolute Manual 0.25 K/mm3 (0.1-0.90); Monocytes Percent Manual 2 % (3-9); Neutrophils Absolute Manual 11.81 K/mm3 (1.3-6.7); Neutrophils Percent Manual 85 % (46-73); Total Cells Counted 100
[2024-01-27 10:39] LABS: Anisocytosis 1+; Ovalocytes 1+; Schistocytes None Seen
[2024-01-27 10:40] LABS: Atypical Lymphocytes Present
--- NOTE | 2024-01-27 11:45 | PC.NURSE ---
Dr. Joyce to bedside with RN to exchange Arnold catheter. Dr. Joyce exchange Arnold catheter for a 3-way Arnold Catheter. hand irrigated Arnold catheter until urine was clear/light pink. MD attached CBI and opened it to fast. New order to run CBI to clear urine. Obtain CT of Abdomen and pelvis.
--- NOTE | 2024-01-27 11:46 | WPDURCON ---
Assessment and Plan Assessment and plan (1) Anemia: Code(s): D64.9 - Anemia, unspecified Status: Acute (2) Urinary retention: Code(s): R33.9 - Retention of urine, unspecified Status: Acute (3) Chronic kidney disease, stage 3: Code(s): N18.30 - Chronic kidney disease, stage 3 unspecified Status: Chronic (4) Prostate cancer: Onset Date: 07/2018 Code(s): C61 - Malignant neoplasm of prostate Status: Chronic Plan This is an 83-year-old gentleman with prostate cancer and myeloma. The patient has a chronic indwelling Arnold catheter. Patient presented with anemia and gross hematuria. -22 F hematuria catheter placed and CBI started. Urine is now clear. -plan CT scan of the abdomen and pelvis to assess for residual clots -appreciate medical management from primary team Urology Consult Note HPI Date Seen: 01/27/24 Requesting Physician: Nate Aguilar MD Primary Care Provider: Kristina Mccollum NP Consult Narrative Narrative: Hubert Finnegan is a 83 year old male with a history prostate cancer and multiple myeloma. He had a transurethral resection of prostatic tissue at the bladder neck with Dr. Cho in August 2023. ?This had [place] 9 carcinoma. The ureteral orifices and thus no stents were placed. ?Patient has remained with a stable creatinine of approximately 1.6. He is managed with an indwelling Arnold catheter as he was unable to urinate since his TUR procedure. Patient present to the emergency department yesterday. He was found to be anemic and with gross hematuria. Patient received 2units of red blood cells yesterday. Urology was called patient with significant gross hematuria and catheter was unable to be flushed by the nursing staff. [facility] Past Medical History Medical History (Updated 01/27/24 @ 01:45 by Jr Morel MD) Chronic anemia Chronic kidney disease, stage 3 Dyslipidemia Dysuria Essential hypertension Heart disease Heart murmur Hypertension Mixed hyperlipidemia Multiple myeloma (01/2014) Relapsed May 2022. Followed by Dr. Galeas. Osteoarthritis of spine with radiculopathy, lumbar region Prostate cancer (07/2018) Pulmonary hypertension Rhinitis Serum calcium elevated Type 2 diabetes mellitus Weakness of both lower extremities Surgical History Surgical History History of cataract extraction with lens replacement History of colonoscopy (03/2009) Screening colonoscopy per Dr. Nuno: internal hemorrhoids and sigmoid diverticulosis. 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 Family History Family History Mother Family history of pancreatic cancer Patient's mother is Family history of malignant neoplasm Diabetes mellitus Hypertension Heart disease Sibling Family history of pancreatic cancer Family history of malignant neoplasm of breast in first degree relative Father Family history of coronary artery disease Cerebrovascular accident Social History Social History Social History: Surrogate medical decision maker: Eloina Finnegan, spouse. Code status: Full code. Smoking packs per day: 0.5 Smoking cigarettes per day: 10.0 Years smoked: 10 Smoking pack-years: 5.00 Smoking status: Former smoker Tobacco type: smokeless tobacco Smokeless tobacco user: chewing tobacco Second hand tobacco smoke exposure: No Alcohol intake: never Substance use: never Substance use type: does not use Do You Feel Safe in your Home?: Yes Lack of Transportation: No Lack of Food: Never True Current Housing: I Have Housing Concerned About Future Housing: No Difficulty Paying Gas/Electric Bills: No Difficulty Paying for Meds: No Currently Unemployed: No Education: High School Diploma/GED Difficulty w/ Childcare or Family Care: No Living arrangements: with family Additional living arrangements comments: Lives with spouse. The 2 sons. Additional occupation/education comments: Retired from [employer]. Spiritual care concerns: No Meds Home Medications and Allergies Home Medications Medication Instructions Recorded Confirmed Type latanoprost 0.005 % eye drops 1 drop ophthalmic (eye) HS 10/11/19 01/27/24 History cyanocobalamin (vitamin B-12) 1,000 mcg PO DAILY 05/06/22 01/26/24 History 1,000 mcg tablet ferrous sulfate 325 mg (65 mg 325 mg PO DAILY 05/06/22 01/26/24 History iron) tablet (FeroSul) fluticasone propionate 50 1 spray intranasal PRN PRN Allergy 07/16/23 01/26/24 History mcg/actuation nasal Symptoms spray,suspension (Flonase Allergy Relief) tamsulosin 0.4 mg capsule 0.4 mg PO DAILY 07/16/23 01/26/24 History polyethylene glycol 3350 17 17 g PO BID PRN constipation #119 08/21/23 01/26/24 Rx gram/dose oral powder (Miralax) grams amlodipine 10 mg tablet 10 mg PO DAILY #30 tabs 08/26/23 01/26/24 Rx hyoscyamine sulfate 0.125 mg 0.125 mg sublingual Q6H PRN 08/26/23 01/26/24 Rx disintegrating tablet (Anaspaz) Bladder Spasm #20 tabs glipizide 5 mg tablet 2.5 mg PO BID #90 tabs 09/25/23 01/26/24 Rx tramadol 50 mg tablet 50 mg PO BID PRN pain #180 tabs 01/26/24 01/26/24 Rx Allergies Allergy/AdvReac Type Severity Reaction Status Date / Time pioglitazone Allergy Mild rash Verified 01/26/24 20:15 latex Allergy Unknown Verified 01/26/24 20:15 Sulfa (Sulfonamide Allergy Rash Verified 01/26/24 20:15 Antibiotics) Vital Signs Vital Signs - 24 hr 01/26/24 15:39 01/26/24 15:45 01/26/24 18:05 Temperature 36.6 C 36.4 C Pulse Rate 67 78 Respiratory Rate 16 21 H Blood Pressure 96/52 L 92/51 L Pulse Oximetry 16 L 95 Oxygen Delivery Room Air 01/26/24 18:11 01/26/24 18:21 01/26/24 19:10 Temperature 36.3 C L 36.3 C L Pulse Rate 76 79 72 Respiratory Rate 20 16 16 Blood Pressure 96/59 L 102/81 84/49 L Pulse Oximetry 96 95 96 Oxygen Delivery 01/26/24 19:11 01/26/24 19:44 01/26/24 19:57 Temperature 36.4 C 36.4 C L 36.4 C L Pulse Rate 72 66 81 Respiratory Rate 16 21 H 21 H Blood Pressure 84/49 L 88/45 L 97/61 L Pulse Oximetry 96 96 96 Oxygen Delivery 01/26/24 20:01 01/26/24 21:01 01/26/24 21:21 Temperature 36.4 C L 36.4 C L Pulse Rate 64 76 86 Respiratory Rate 20 14 14 Blood Pressure 102/56 L 102/52 L Pulse Oximetry 97 96 94 Oxygen Delivery Room Air 01/26/24 21:21 01/26/24 22:00 01/26/24 22:13 Temperature 36.4 C Pulse Rate 86 70 86 Respiratory Rate 14 Blood Pressure 101/64 Pulse Oximetry 94 Oxygen Delivery 01/27/24 00:00 01/27/24 00:00 01/27/24 00:30 Temperature 36.4 C Pulse Rate 86 75 77 Respiratory Rate 14 14 Blood Pressure 102/59 L Pulse Oximetry 94 96 Oxygen Delivery Room Air 01/27/24 05:14 01/27/24 04:00 01/27/24 02:00 Temperature 36.4 C Pulse Rate 77 77 95 Respiratory Rate 14 14 Blood Pressure 98/65 L Pulse Oximetry 94 96 Oxygen Delivery Room Air 01/27/24 04:00 01/27/24 06:00 01/27/24 07:46 Temperature 36.4 C L Pulse Rate 72 95 96 Respiratory Rate 16 Blood Pressure 98/56 L Pulse Oximetry 93 Oxygen Delivery 01/27/24 08:00 01/27/24 08:00 01/27/24 10:00 Temperature Pulse Rate 96 100 87 Respiratory Rate 16 Blood Pressure Pulse Oximetry 93 Oxygen Delivery Room Air Exam Narrative: Patient is confused. He is awake. He is cachectic. His abdomen is very thin soft. He has a Arnold catheter place 16 F draining red urine. Procedure: The pre-existing Arnold catheter is removed. The patient was prepped draped sterile fashion. A 22F hematuria catheter was inserted. Irrigation returned [id number] of clot. At this point the urine was clear CBI was initiated. Results Labs 01/27/24 04:16 01/27/24 04:16 Labs: Short CBC 01/26/24 01/27/24 Range/Units 15:51 04:16 WBC 10.9 H 12.7 H (4.5-10.0) K/mm3 Hgb 6.9 L* 9.8 L (14.0-18.0) g/dL Hct 22.5 L 31.4 L (42.0-52.0) % Plt Count 147 L 169 (150-375) k/mm3 BMP 01/26/24 01/27/24 15:51 04:16 Sodium 137 139 Potassium 4.8 4.8 Chloride 111 H 111 H Carbon Dioxide 18 L 17 L BUN 41 H 43 H Creatinine 1.80 H 1.80 H Glucose 83 81 Calcium 8.4 8.7 Cardiac Enzymes 01/26/24 01/26/24 01/26/24 Range/Units 15:51 20:02 21:39 Troponin I 0.027 0.029 0.027 (0.000-0.034) ng/mL Liver Function 01/26/24 01/27/24 Range/Units 15:51 04:16 Total Bilirubin 1.0 1.2 (0.2-1.3) mg/dL AST 116 H 157 H (17-59) U/L ALT 8 9 (6-50) U/L Alkaline Phosphatase 592 H 760 H (38-126) U/L Albumin 2.7 L 2.8 L (3.5-5.1) g/dL Urine 01/27/24 Range/Units 07:06 Urine Color Red H (Yellow) Urine Appearance Turbid H (Clear) Urine pH TNP Ur Specific [place] 1.025 (1.001-1.035) Urine Protein TNP Urine Glucose (UA) TNP
[2024-01-27 11:59] LABS: Glucose Point of Care 79 mg/dl (65-105)
--- NOTE | 2024-01-27 15:11 | P.PNIM_ITS ---
Progress Note: A&P Assessment and Plan (1) Anemia: Code(s): D64.9 - Anemia, unspecified Status: Acute Assessment and Plan: Patient was sent to the ED for chest pain. Work revealed anemia with Hgb 6.9. He has a hx of acute on chronic anemia. Prior hgb runs 7-8 range but did drop to 5.8 in August but was treated with blood transfusion in ED and discharged home. [place] related to occult and sometime gross hematuria. Also consider related to his MM. He was transfused 2U here and repeat Hgb better. Follow and transfuse as needed (2) Hematuria: Qualifiers: Hematuria type: gross Qualified Code(s): R31.0 - Gross hematuria Code(s): R31.9 - Hematuria, unspecified Status: Acute Assessment and Plan: Patient is s/p cystoscopy with transurethral resection of prostate on 08/25/23. Prior imaging showing multiple scattered sclerotic bone lesions and AP climbed to 760 today. Patient with gross hematuria today felt related to prostate CA. Urology consulted and CBI started. CT A/P ordered. Appreciate urology input. (3) Pneumonia: Code(s): J18.9 - Pneumonia, unspecified organism Status: Acute Assessment and Plan: CXR showing right basilar atelectasis vs PNA with pleural effusion. Consider underlying mass. Started on Rocephin and Azithromycin after cultures obtained BCx pending Continue abx for now. (4) Chest pain: Code(s): R07.9 - Chest pain, unspecified Status: Acute Assessment and Plan: Patient with complaint of chest pain. EKG showing NSR, LAFB, anteroseptal infarct with borderline ST-T wave changes. Troponin negative x3. Possibly related to anemia with demand ischemia. Follow (5) Severe protein-calorie malnutrition: Code(s): E43 - Unspecified severe protein-calorie malnutrition Status: Acute Assessment and Plan: Likely secondary to chronic disease. Resume diet. Add supplements. Have speech therapy evaluate for dysphagia causing his poor oral intake. (6) Type 2 diabetes mellitus: Code(s): E11.9 - Type 2 diabetes mellitus without complications Status: Chronic Assessment and Plan: No recent A1c. Glucose 55 on admission felt related to poor roal intake and continued glipizide use. Glucose treated and now stable. Follow (7) Chronic kidney disease, stage 3: Code(s): N18.30 - Chronic kidney disease, stage 3 unspecified Status: Chronic Assessment and Plan: Cr normal in May but worse in August to 2.4. Better after treatment down to 1.6 Cr 1.8 on admission and unchanged on repeat. Prior studies showing hydronephrosis so consider chronci due to obstructive process. Monitor renal function (8) Prostate cancer: Onset Date: 07/2018 Code(s): C61 - Malignant neoplasm of prostate Status: Chronic Assessment and Plan: Urology following. Known bone metastasis vs related to MM Follow up as outpatient (9) Multiple myeloma: Onset Date: 01/2014 Qualifiers: Multiple myeloma remission status: not in remission Qualified Code(s): C90.00 - Multiple myeloma not having achieved remission Code(s): C90.00 - Multiple myeloma not having achieved remission Status: Acute Assessment and Plan: Follow-up in outpatient setting. Subjective Date/time seen: 01/27/24 15:11 Interval history: 83yo male with DM, multiple myeloma, prostate CA, CKD and HTN here for chest pain. Assuming care. Chart reviewed. Patient is alert but confused. He is having loose stools. Nursing noted dark red urine this morning. Review of Systems Review of Systems: ROS unobtainable: Yes unobtainable due to mental status Exam Narrative: AF 98.2 103/52 88 20 93% ra Gen - NARD Chest - decreased BS in the bases R>L. CV - RRR S1/S2 with murmur throughout precordium. Tele showing brief run of SVT Abd - Soft, NT/ND, Positive BS - Arnold secured draining ward red urine with small clots Ext - 1+ pedal edema Neuro - Alert but confused Psych - Nml mood and affect Skin - Warm and dry Objective Data Vital Signs Vital Signs: Vital Signs - 24 hr 01/26/24 15:39 01/26/24 15:45 01/26/24 18:05 Temperature 97.8 F 97.6 F Pulse Rate 67 78 Respiratory Rate 16 21 H Blood Pressure 96/52 L 92/51 L Pulse Oximetry 16 L 95 Oxygen Delivery Room Air 01/26/24 18:11 01/26/24 18:21 01/26/24 19:10 Temperature 97.4 F L 97.4 F L Pulse Rate 76 79 72 Respiratory Rate 20 16 16 Blood Pressure 96/59 L 102/81 84/49 L Pulse Oximetry 96 95 96 Oxygen Delivery 01/26/24 19:11 01/26/24 19:44 01/26/24 19:57 Temperature 97.6 F 97.5 F L 97.5 F L Pulse Rate 72 66 81 Respiratory Rate 16 21 H 21 H Blood Pressure 84/49 L 88/45 L 97/61 L Pulse Oximetry 96 96 96 Oxygen Delivery 01/26/24 20:01 01/26/24 21:01 01/26/24 21:21 Temperature 97.5 F L 97.5 F L Pulse Rate 64 76 86 Respiratory Rate 20 14 14 Blood Pressure 102/56 L 102/52 L Pulse Oximetry 97 96 94 Oxygen Delivery Room Air 01/26/24 21:21 01/26/24 22:00 01/26/24 22:13 Temperature 97.6 F Pulse Rate 86 70 86 Respiratory Rate 14 Blood Pressure 101/64 Pulse Oximetry 94 Oxygen Delivery 01/27/24 00:00 01/27/24 00:00 01/27/24 00:30 Temperature 97.6 F Pulse Rate 86 75 77 Respiratory Rate 14 14 Blood Pressure 102/59 L Pulse Oximetry 94 96 Oxygen Delivery Room Air 01/27/24 05:14 01/27/24 04:00 01/27/24 02:00 Temperature 97.6 F Pulse Rate 77 77 95 Respiratory Rate 14 14 Blood Pressure 98/65 L Pulse Oximetry 94 96 Oxygen Delivery Room Air 01/27/24 04:00 01/27/24 06:00 01/27/24 07:46 Temperature 97.5 F L Pulse Rate 72 95 96 Respiratory Rate 16 Blood Pressure 98/56 L Pulse Oximetry 93 Oxygen Delivery 01/27/24 08:00 01/27/24 08:00 01/27/24 10:00 Temperature Pulse Rate 96 100 87 Respiratory Rate 16 Blood Pressure Pulse Oximetry 93 Oxygen Delivery Room Air 01/27/24 11:56 01/27/24 12:00 01/27/24 12:00 Temperature 98.2 F Pulse Rate 102 H 102 H 88 Respiratory Rate 20 20 Blood Pressure 103/52 L Pulse Oximetry 93 93 Oxygen Delivery Room Air 01/27/24 14:00 Temperature Pulse Rate 88 Respiratory Rate Blood Pressure Pulse Oximetry Oxygen Delivery Intake/Output Intake/Output: Intake & Output 11/1701/25/24 01/26/24 01/27/24 23:59 23:59 23:59 23:59 Intake Total 700 Output Total 200 Balance 700 -200 Meds/Results Medications: Active Medications Generic Name Dose Route Start Last Admin Trade Name Freq PRN Reason Stop Dose Admin Acetaminophen 650 mg 01/26/24 17:36 Acetaminophen 325 Mg Tablet PO Q4H PRN Mild Pain (1-3) or Fever Hydrocodone Bitart/Acetaminophen 1 tab 01/26/24 17:36 Hydrocodone/Acetaminophen (*Crx) 5-325 Mg Tablet PO Q4H PRN Pain Rated 4-6 Amlodipine Besylate 10 mg 01/27/24 09:00 01/27/24 09:06 Amlodipine Besylate 10 Mg Tablet PO 10 mg DAILY BUZZ Administration Dextrose 12.5 gm 01/27/24 08:28 Dextrose 50% 25 Gm/50 Ml Syringe IV PUSH PRN PRN Hypoglycemia Protocol Ferrous Sulfate 325 mg 01/27/24 09:00 01/27/24 09:06 Ferrous Sulfate [address] BY MOUTH 325 mg DAILY BUZZ Administration Fluticasone Propionate 1 spray 01/27/24 01:37 Fluticasone Propionate 0.05% Na Spr 16 Gm Btl (*Bkc) NASAL PRN PRN Allergy Symptoms Glucagon 1 mg 01/27/24 08:28 Glucagon For Inj 1 Mg Vial IM PRN PRN Hypoglycemia Protocol Glucose 15 gm 01/27/24 08:28 Glucose Oral Gel 15 Gm Of Glucse In 37.5 Gm Tube PO PRN PRN Hypoglycemia Protocol Hyoscyamine 0.125 mg 01/27/24 01:37 01/27/24 09:05 Hyoscyamine Sulfate 0.125 Mg Tablet SUBLINGUAL 0.125 mg Q6H PRN Administration Bladder Spasm Ceftriaxone Sodium 2 gm in 100 mls @ 200 mls/hr 01/27/24 02:00 01/27/24 04:22 Rocephin 2 Gm/Ns 100 Ml IVPB 200 mls/hr Q24H BUZZ Administration Azithromycin 500 mg in 250 mls @ 250 mls/hr 01/27/24 02:00 01/27/24 04:22 Zithromax IVPB 250 mls/hr Q24H BUZZ Administration Dextrose 1,000 mls @ 100 mls/hr 01/27/24 08:28 Dextrose 5% 1,000 Ml IVPB PRN PRN Hypoglycemia Protocol Latanoprost 1 drop 01/27/24 21:00 Latanoprost 0.005% Op Soln 2.5 Ml Btl EACH EYE HS [facility] Miscellaneous Information 0 each 01/27/24 00:01 Tramadol Duplicate With [place] Prn Pain 4-6 Hold Or D/C One? XX 02/26/24 00:00 CLARIFY BUZZ Morphine Sulfate 2 mg 01/26/24 17:36 Morphine Sulfate (*Crx) 2 Mg/Ml Inj IV PUSH Q2H PRN Pain Rated 7-10 Ondansetron HCl 4 mg 01/26/24 17:36 Ondansetron Inj 4 Mg/2 Ml Vial IV PUSH Q4H PRN Nausea Polyethylene Glycol 17 gm 01/27/24 01:37 Polyethylene Glycol 3350 17 Gm Powd.Pack PO BID PRN constipation Tamsulosin HCl 0.4 mg 01/27/24 09:00 01/27/24 09:06 Tamsulosin Hcl 0.4 Mg Capsule PO 0.4 mg DAILY [facility] Administration Tramadol HCl 50 mg 01/27/24 01:37 Tramadol Hcl (*Crx) 50 Mg Tablet PO BID PRN pain Radiology Results: ITS Impressions Chest X-Ray 01/26/24 16:14 IMPRESSION: Right basilar atelectasis versus pneumonia with pleural effusion. Follow-up to resolution is advised to exclude underlying mass. Sclerotic changes in the vertebrae. Clinical correlation and further evaluation advised. Labs Labs: Laboratory Results - last 24 hr 01/26/24 01/26/24 01/26/24 15:51 16:39 17:14 WBC 10.9 H RBC 2.29 L Hgb 6.9 L* Hct 22.5 L MCV 98.3 MCH 30.1 MCHC 30.7 L RDW 18.7 H Plt Count 147 L MPV 11.0 H Immature Gran % (Auto) Not Reportable Neut % (Auto) Not Reportable Lymph % (Auto) Not Reportable [place] % (Auto) Not Reportable Eos % (Auto) Not Reportable Baso % (Auto) Not Reportable Lymph # (Auto) Not Reportable [place] # (Auto) Not Reportable Eos # (Auto) Not Reportable Baso # (Auto) Not Reportable Abs Immat Gran (auto) Not Reportable Absolute Neuts (auto) Not Reportable Absolute Nucleated RBC Not Reportable Total Counted 100 Neutrophils % (Manual) 87 H Band Neutrophils % 2 Lymphocytes % (Manual) 4 L Monocytes % (Manual) 7 Eosinophils % (Manual) 0 Basophils % (Manual) 0 Nucleated RBC % Not Reportable Abs Neuts (Manual) 9.70 H Abs Lymphs (Manual) 0.43 L Abs Monocytes (Manual) 0.76 Absolute Eos (Manual) 0.00 L Abs Basophils (Manual) 0.00 Atypical Lymphocytes Present Platelet Estimate Slightly decreased Large Platelets Present Hypochromasia 1+ Anisocytosis 1+ Ovalocytes 1+ Schistocytes None seen PT 17.9 H INR 1.4 APTT 42.7 H Sodium 137 Potassium 4.8 Chloride 111 H Carbon Dioxide 18 L Anion Gap 8 BUN 41 H Creatinine 1.80 H Estim Creat Clear Calc Not Reportable Estimated GFR 36 L Glucose 83 POC Capillary Glucose 55 L* Calcium 8.4 Phosphorus Magnesium Total Bilirubin 1.0 AST 116 H ALT 8 Alkaline Phosphatase 592 H Troponin I 0.027 Total Protein 7.0 Albumin 2.7 L Lipase 30 Urine Color Urine Appearance Urine pH Ur Specific [place] Urine Protein Urine Glucose (UA) Urine Ketones Ur Blood (Man) Urine Nitrate Urine Bilirubin Urine Urobilinogen Add Ur Microanalysis Leukocyte Esterase Rfl Urine RBC Urine WBC Ur Squamous Epith Cells Urine Bacteria Urine Casts Blood Type A Positive Antibody Screen Negative Enhanced Crossmatch See Detail 01/26/24 01/26/24 01/26/24 18:10 20:02 21:10 WBC RBC Hgb Hct MCV MCH MCHC RDW Plt Count MPV Immature Gran % (Auto) Neut % (Auto) Lymph % (Auto) [place] % (Auto) Eos % (Auto) Baso % (Auto) Lymph # (Auto) [place] # (Auto) Eos # (Auto) Baso # (Auto) Abs Immat Gran (auto) Absolute Neuts (auto) Absolute Nucleated RBC Total Counted Neutrophils % (Manual) Band Neutrophils % Lymphocytes % (Manual) Monocytes % (Manual) Eosinophils % (Manual) Basophils % (Manual) Nucleated RBC % Abs Neuts (Manual) Abs Lymphs (Manual) Abs Monocytes (Manual) Absolute Eos (Manual) Abs Basophils (Manual) Atypical Lymphocytes Platelet Estimate Large Platelets Hypochromasia Anisocytosis Ovalocytes Schistocytes PT INR APTT Sodium Potassium Chloride Carbon Dioxide Anion Gap BUN Creatinine Estim Creat Clear Calc Estimated GFR Glucose POC Capillary Glucose 60 L 92 Calcium Phosphorus Magnesium Total Bilirubin AST ALT Alkaline Phosphatase Troponin I 0.029 Total Protein Albumin Lipase Urine Color Urine Appearance Urine pH Ur Specific [place] Urine Protein Urine Glucose (UA) Urine Ketones Ur Blood (Man) Urine Nitrate Urine Bilirubin Urine Urobilinogen Add Ur Microanalysis Leukocyte Esterase Rfl Urine RBC Urine WBC Ur Squamous Epith Cells Urine Bacteria Urine Casts Blood Type Antibody Screen Enhanced Crossmatch 01/26/24 01/27/24 01/27/24 21:39 04:16 04:59 WBC 12.7 H RBC 3.37 L Hgb 9.8 L Hct 31.4 L MCV 93.2 D MCH 29.1 MCHC 31.2 L RDW 19.5 H Plt Count 169 MPV 12.0 H Immature Gran % (Auto) Not Reportable Neut % (Auto) Not Reportable Lymph % (Auto) Not Reportable [place] % (Auto) Not Reportable Eos % (Auto) Not Reportable Baso % (Auto) Not Reportable Lymph # (Auto) Not Reportable [place] # (Auto) Not Reportable Eos # (Auto) Not Reportable Baso # (Auto) Not Reportable Abs Immat Gran (auto) Not Reportable Absolute Neuts (auto) Not Reportable Absolute Nucleated RBC Not Reportable Total Counted 100 Neutrophils % (Manual) 85 H Band Neutrophils % 8 H Lymphocytes % (Manual) 5 L Monocytes % (Manual) 2 L Eosinophils % (Manual) Basophils % (Manual) Nucleated RBC % Not Reportable Abs Neuts (Manual) 11.81 H Abs Lymphs (Manual) 0.63 L Abs Monocytes (Manual) 0.25 Absolute Eos (Manual) Abs Basophils (Manual) Atypical Lymphocytes Present Platelet Estimate Adequate Large Platelets Hypochromasia Anisocytosis 1+ Ovalocytes 1+ Schistocytes None seen PT INR APTT Sodium 139 Potassium 4.8 Chloride 111 H Carbon Dioxide 17 L Anion Gap 11 BUN 43 H Creatinine 1.80 H Estim Creat Clear Calc 22 Estimated GFR 36 L Glucose 81 POC Capillary Glucose 88 Calcium 8.7 Phosphorus 4.0 Magnesium 2.3 Total Bilirubin 1.2 AST 157 H ALT 9 Alkaline Phosphatase 760 H Troponin I 0.027 Total Protein 7.0 Albumin 2.8 L Lipase Urine Color Urine Appearance Urine pH Ur Specific [place] Urine Protein Urine Glucose (UA) Urine Ketones Ur Blood (Man) Urine Nitrate Urine Bilirubin Urine Urobilinogen Add Ur Microanalysis Leukocyte Esterase Rfl Urine RBC Urine WBC Ur Squamous Epith Cells Urine Bacteria Urine Casts Blood Type Antibody Screen Enhanced Crossmatch 01/27/24 01/27/24 07:06 11:52 WBC RBC Hgb Hct MCV MCH MCHC RDW Plt Count MPV Immature Gran % (Auto) Neut % (Auto) Lymph % (Auto) [place] % (Auto) Eos % (Auto) Baso % (Auto) Lymph # (Auto) [place] # (Auto) Eos # (Auto) Baso # (Auto) Abs Immat Gran (auto) Absolute Neuts (auto) Absolute Nucleated RBC Total Counted Neutrophils % (Manual) Band Neutrophils % Lymphocytes % (Manual) Monocytes % (Manual) Eosinophils % (Manual) Basophils % (Manual) Nucleated RBC % Abs Neuts (Manual) Abs Lymphs (Manual) Abs Monocytes (Manual) Absolute Eos (Manual) Abs Basophils (Manual) Atypical Lymphocytes Platelet Estimate Large Platelets Hypochromasia Anisocytosis Ovalocytes Schistocytes PT INR APTT Sodium Potassium Chloride Carbon Dioxide Anion Gap BUN Creatinine Estim Creat Clear Calc Estimated GFR Glucose POC Capillary Glucose 79 Calcium Phosphorus Magnesium Total Bilirubin AST ALT Alkaline Phosphatase Troponin I Total Protein Albumin Lipase Urine Color Red H Urine Appearance Turbid H Urine pH TNP Ur Specific [place] 1.025 Urine Protein TNP Urine Glucose (UA) TNP Urine Ketones TNP Ur Blood (Man) TNP Urine Nitrate TNP Urine Bilirubin TNP Urine Urobilinogen TNP Add Ur Microanalysis Reviewed Leukocyte Esterase Rfl TNP Urine RBC >100 H Urine WBC >100 H Ur Squamous Epith Cells None seen Urine Bacteria 1+ H Urine Casts 0-2 Blood Type Antibody Screen Enhanced Crossmatch
[2024-01-27 16:14] LABS: Glucose Point of Care 87 mg/dl (65-105)
[2024-01-27 21:21] LABS: Glucose Point of Care 76 mg/dl (65-105)
[2024-01-27] MEDS: LATANOPROST 0.005% OP SOLN 2.5 ML BTL 1 DROP EACH EYE (21:22)
[2024-01-28] VITALS (11 sets, daily range): BP systolic 108–117; BP diastolic 61–69; PULSE 71–100; RESP 16–22; TEMP 36.2–36.5; O2SAT 92–99
[2024-01-28] MEDS: cefTRIAXone 2 GM/NS 100 ML 2 GM/100 ML BAG IVPB (02:41)
[2024-01-28] MEDS: AZITHROMYCIN 500 MG/NS 250 ML 500 MG/250 ML BAG 250 MG IVPB (04:22)
[2024-01-28] MEDS: diphenhydrAMINE HCl INJ 50 MG/ML VIAL IV PUSH (04:33)
[2024-01-28] MEDS: LORazepam INJ (*CRX) 2 MG/ML VIAL 1 MG IV PUSH (04:33)
[2024-01-28 05:36] LABS: Hematocrit 28.4 % (42.0-52.0); Hemoglobin 9.2 g/dL (14.0-18.0); Mean Corpuscular HGB Conc 32.4 g/dl (32-36); Mean Corpuscular Hemoglobin 29.9 pg (26-34); Mean Corpuscular Volume 92.2 fl (80-100); Mean Platelet Volume 11.3 fl (7.4-10.4); Platelet Count Result 147 k/mm3 (150-375); Red Blood Count 3.08 M/mm3 (4.6-6.20); Red Cell Distribution Width 19.8 % (11.5-14.5); White Blood Count 9.3 K/mm3 (4.5-10.0)
[2024-01-28 05:51] LABS: Alanine Aminotransferase 11 U/L (6-50); Albumin Level 2.4 g/dL (3.5-5.1); Alkaline Phosphatase 763 U/L (38-126); Anion Gap 8 mmol/L (4-12); Aspartate Amino Transferase 113 U/L (17-59); Bilirubin,Total 0.4 mg/dL (0.2-1.3); Blood Urea Nitrogen 46 mg/dL (9-20); Carbon Dioxide 18 mmol/L (22-30); Chloride 114 mmol/L (98-107); Estimated CRCL calculation 25 ml/min; Estimated Glomerular Filt Rate 39; Glucose 266 mg/dL (65-110); Magnesium 2.2 mg/dL (1.6-2.3); Phosphorus 3.8 mg/dL (2.5-4.5); Potassium 3.7 mmol/L (3.4-5.0); Sodium 140 mmol/L (137-145)
[2024-01-28 06:01] LABS: Band Neutrophils Percent 5 % (0-6); Lymphocytes Absolute Manual 0.27 K/mm3 (1.1-4.5); Metamyelocytes Percent 1 %; Monocytes Absolute Manual 0.09 K/mm3 (0.1-0.90); Monocytes Percent Manual 1 % (3-9); Neutrophils Absolute Manual 8.83 K/mm3 (1.3-6.7); Neutrophils Percent Manual 90 % (46-73); Total Cells Counted 100
[2024-01-28 06:02] LABS: Platelet Estimate Slightly Decreased (Adequate)
[2024-01-28 06:03] LABS: Acanthocytes 1+; Anisocytosis 1+; Ovalocytes 1+; Schistocytes None Seen
--- NOTE | 2024-01-28 07:58 | WPDUROPN2 ---
Progress Note: A&P Assessment and Plan (1) Prostate cancer: Onset Date: 07/2018 Code(s): C61 - Malignant neoplasm of prostate Status: Chronic Assessment and Plan: Diffusely metastatic disease. Will see what his PSA shows in review my office notes for 1 his last androgen deprivation therapy was given. Need to discuss further management with his (2) Gross hematuria: Code(s): R31.0 - Gross hematuria Status: Acute Assessment and Plan: Appears to be resolving. Will continue CBI and wean as tolerated. Again further discussion if needed may made with the spouse regarding aggressiveness of treatment (3) Hydronephrosis: Code(s): N13.30 - Unspecified hydronephrosis Status: Acute Assessment and Plan: Chronic in nature with stable renal function. Only option would be percutaneous nephrostomy tubes if renal function deteriorates and wishes to proceed along that route Subjective Subjective Date/Time Seen: 01/28/24 07:58 Principal diagnosis: Metastatic prostate carcinoma with hematuria Interval history: Mr. Kirsten soto does not appear communicative. His sitter in the room states that he is not really communicated with her. His urine is pink with minimal CBI at this time. CT scan reveals diffusely metastatic disease. Question of bladder lesions versus blood products in the bladder Review of Systems Review of Systems: All systems reviewed & are unremarkable except as noted in HPI and below Exam Const: General: lethargic Nutritional Appearance: cachectic Resp: Effort & Inspection: normal respiratory effort Urinary Catheter: Urinary Catheter: patent and draining and urine pink Objective Data Vital Signs Vital Signs: Vital Signs - 24 hr 01/27/24 08:00 01/27/24 08:00 01/27/24 10:00 Temperature Pulse Rate 96 100 87 Respiratory Rate 16 Blood Pressure Pulse Oximetry 93 Oxygen Delivery Room Air 01/27/24 11:56 01/27/24 12:00 01/27/24 12:00 Temperature 36.8 C Pulse Rate 102 H 102 H 88 Respiratory Rate 20 20 Blood Pressure 103/52 L Pulse Oximetry 93 93 Oxygen Delivery Room Air 01/27/24 14:00 01/27/24 15:36 01/27/24 16:00 Temperature 36.3 C L Pulse Rate 88 86 86 Respiratory Rate 20 20 Blood Pressure 100/48 L Pulse Oximetry 93 93 Oxygen Delivery Room Air 01/27/24 16:00 01/27/24 18:00 01/27/24 20:00 Temperature Pulse Rate 87 89 89 Respiratory Rate 20 Blood Pressure Pulse Oximetry 93 Oxygen Delivery Room Air 01/27/24 20:00 01/27/24 21:26 01/27/24 23:43 Temperature 36.5 C 36.5 C Pulse Rate 89 97 95 Respiratory Rate 20 20 Blood Pressure 108/57 L 112/75 Pulse Oximetry 96 96 Oxygen Delivery 01/28/24 00:00 01/28/24 04:00 01/27/24 22:00 Temperature Pulse Rate 95 71 87 Respiratory Rate 20 20 Blood Pressure Pulse Oximetry 96 92 Oxygen Delivery Room Air Room Air 01/28/24 00:00 01/28/24 02:00 01/28/24 04:00 Temperature Pulse Rate 88 89 93 Respiratory Rate Blood Pressure Pulse Oximetry Oxygen Delivery 01/28/24 04:52 01/28/24 06:00 Temperature 36.5 C Pulse Rate 71 100 Respiratory Rate 20 Blood Pressure 112/62 Pulse Oximetry 92 Oxygen Delivery Intake/Output Intake/Output: Intake & Output 01/25/24 01/26/24 01/27/24 01/28/24 23:59 23:59 23:59 23:59 Intake Total 700 7250 00231 Output Total 9900 87179 Balance 042 -2053 -912 Meds/Results Medications: Active Medications Generic Name Dose Route Start Last Admin Trade Name Freq PRN Reason Stop Dose Admin Acetaminophen 650 mg 01/26/24 17:36 Acetaminophen 325 Mg Tablet PO Q4H PRN Mild Pain (1-3) or Fever Hydrocodone Bitart/Acetaminophen 1 tab 01/26/24 17:36 Hydrocodone/Acetaminophen (*Crx) 5-325 Mg Tablet PO Q4H PRN Pain Rated 4-6 Amlodipine Besylate 10 mg 01/27/24 09:00 01/27/24 09:06 Amlodipine Besylate 10 Mg Tablet PO 10 mg DAILY BUZZ Administration Dextrose 12.5 gm 01/27/24 08:28 Dextrose 50% 25 Gm/50 Ml Syringe IV PUSH PRN PRN Hypoglycemia Protocol Ferrous Sulfate 325 mg 01/27/24 09:00 01/27/24 09:06 Ferrous Sulfate [address] BY MOUTH 325 mg DAILY BUZZ Administration Fluticasone Propionate 1 spray 01/27/24 01:37 Fluticasone Propionate 0.05% Na Spr 16 Gm Btl (*Bkc) NASAL PRN PRN Allergy Symptoms Glucagon 1 mg 01/27/24 08:28 Glucagon For Inj 1 Mg Vial IM PRN PRN Hypoglycemia Protocol Glucose 15 gm 01/27/24 08:28 Glucose Oral Gel 15 Gm Of Glucse In 37.5 Gm Tube PO PRN PRN Hypoglycemia Protocol Hyoscyamine 0.125 mg 01/27/24 01:37 01/27/24 09:05 Hyoscyamine Sulfate 0.125 Mg Tablet SUBLINGUAL 0.125 mg Q6H PRN Administration Bladder Spasm Ceftriaxone Sodium 2 gm in 100 mls @ 200 mls/hr 01/27/24 02:00 01/28/24 02:41 Rocephin 2 Gm/Ns 100 Ml IVPB 200 mls/hr Q24H BUZZ Administration Azithromycin 500 mg in 250 mls @ 250 mls/hr 01/27/24 02:00 01/28/24 04:22 Zithromax IVPB 250 mls/hr Q24H BUZZ Administration Dextrose 1,000 mls @ 100 mls/hr 01/27/24 08:28 Dextrose 5% 1,000 Ml IVPB PRN PRN Hypoglycemia Protocol Latanoprost 1 drop 01/27/24 21:00 01/27/24 21:22 Latanoprost 0.005% Op Soln 2.5 Ml Btl EACH EYE 1 drop HS BUZZ Administration Miscellaneous Information 0 each 01/27/24 00:01 Tramadol Duplicate With [place] Prn Pain 4-6 Hold Or D/C One? XX 02/26/24 00:00 CLARIFY [facility] Morphine Sulfate 2 mg 01/26/24 17:36 Morphine Sulfate (*Crx) 2 Mg/Ml Inj IV PUSH Q2H PRN Pain Rated 7-10 Multi-Ingred Cream/Lotion/Oil/Oint 1 applic 01/28/24 09:00 Eucerin Cream 120 Gm Jar TOPICAL DAILY BUZZ Ondansetron HCl 4 mg 01/26/24 17:36 Ondansetron Inj 4 Mg/2 Ml Vial IV PUSH Q4H PRN Nausea Polyethylene Glycol 17 gm 01/27/24 01:37 Polyethylene Glycol 3350 17 Gm Powd.Pack PO BID PRN constipation Tamsulosin HCl 0.4 mg 01/27/24 09:00 01/27/24 09:06 Tamsulosin Hcl 0.4 Mg Capsule PO 0.4 mg DAILY BUZZ Administration Tramadol HCl 50 mg 01/27/24 01:37 Tramadol Hcl (*Crx) 50 Mg Tablet PO BID PRN pain Trazodone HCl 50 mg 01/28/24 01:49 Trazodone Hcl 50 Mg Tablet PO ONCE PRN Insomnia Radiology Results: ITS Impressions Chest X-Ray 01/26/24 16:14 IMPRESSION: Right basilar atelectasis versus pneumonia with pleural effusion. Follow-up to resolution is advised to exclude underlying mass. Sclerotic changes in the vertebrae. Clinical correlation and further evaluation advised. Abdomen/Pelvis CT 01/27/24 15:58 IMPRESSION: Findings consistent with widely metastatic prostate cancer, within the liver, bone, and possibly within the bladder, as detailed above. Large right and small left-sided pleural effusions Labs Labs: Laboratory Results - last 24 hr 01/27/24 01/27/24 01/27/24 04:16 11:52 16:12 WBC 12.7 H RBC 3.37 L Hgb 9.8 L Hct 31.4 L MCV 93.2 D MCH 29.1 MCHC 31.2 L RDW 19.5 H Plt Count 169 MPV 12.0 H Immature Gran % (Auto) Not Reportable Neut % (Auto) Not Reportable Lymph % (Auto) Not Reportable [place] % (Auto) Not Reportable Eos % (Auto) Not Reportable Baso % (Auto) Not Reportable Lymph # (Auto) Not Reportable [place] # (Auto) Not Reportable Eos # (Auto) Not Reportable Baso # (Auto) Not Reportable Abs Immat Gran (auto) Not Reportable Absolute Neuts (auto) Not Reportable Absolute Nucleated RBC Not Reportable Total Counted 100 Neutrophils % (Manual) 85 H Band Neutrophils % 8 H Lymphocytes % (Manual) 5 L Monocytes % (Manual) 2 L Metamyelocytes % Nucleated RBC % Not Reportable Abs Neuts (Manual) 11.81 H Abs Lymphs (Manual) 0.63 L Abs Monocytes (Manual) 0.25 Atypical Lymphocytes Present Platelet Estimate Adequate Anisocytosis 1+ Ovalocytes 1+ Acanthocytes (Sp[place]) Schistocytes None seen Sodium 139 Potassium 4.8 Chloride 111 H Carbon Dioxide 17 L Anion Gap 11 BUN 43 H Creatinine 1.80 H Estim Creat Clear Calc 22 Estimated GFR 36 L Glucose 81 POC Capillary Glucose 79 87 Calcium 8.7 Phosphorus 4.0 Magnesium 2.3 Total Bilirubin 1.2 AST 157 H ALT 9 Alkaline Phosphatase 760 H Total Protein 7.0 Albumin 2.8 L 01/27/24 01/28/24 21:18 05:23 WBC 9.3 RBC 3.08 L Hgb 9.2 L Hct 28.4 L MCV 92.2 MCH 29.9 MCHC 32.4 RDW 19.8 H Plt Count 147 L MPV 11.3 H Immature Gran % (Auto) Not Reportable Neut % (Auto) Not Reportable Lymph % (Auto) Not Reportable [place] % (Auto) Not Reportable Eos % (Auto) Not Reportable Baso % (Auto) Not Reportable Lymph # (Auto) Not Reportable [place] # (Auto) Not Reportable Eos # (Auto) Not Reportable Baso # (Auto) Not Reportable Abs Immat Gran (auto) Not Reportable Absolute Neuts (auto) Not Reportable Absolute Nucleated RBC Not Reportable Total Counted 100 Neutrophils % (Manual) 90 H Band Neutrophils % 5 Lymphocytes % (Manual) 3.0 L Monocytes % (Manual) 1 L Metamyelocytes % 1 Nucleated RBC % Not Reportable Abs Neuts (Manual) 8.83 H Abs Lymphs (Manual) 0.27 L Abs Monocytes (Manual) 0.09 L Atypical Lymphocytes Platelet Estimate Slightly decreased Anisocytosis 1+ Ovalocytes 1+ Acanthocytes ([place]) 1+ Schistocytes None seen Sodium 140 Potassium 3.7 Chloride 114 H Carbon Dioxide 18 L Anion Gap 8 BUN 46 H Creatinine 1.70 H Estim Creat Clear Calc 25 Estimated GFR 39 L Glucose 266 H POC Capillary Glucose 76 Calcium 8.0 L Phosphorus 3.8 Magnesium 2.2 Total Bilirubin 0.4 AST 113 H ALT 11 Alkaline Phosphatase 763 H Total Protein 6.0 L Albumin 2.4 L
[2024-01-28 08:49] LABS: Glucose Point of Care 208 mg/dl (65-105)
[2024-01-28] MEDS: VANCOMYCIN 1,500 MG/NS 500 ML 1,500 MG/500 ML BAG 250 MG IVPB (08:52)
--- NOTE | 2024-01-28 09:27 | PCSTNOTE ---
Therapist attempted to see patient for a bedside swallow evaluation at 8:20 but patient would not arouse, returned around 8:50 and RUPERTO Hernandez, present and unable to arouse patient. Will try again later.
--- NOTE | 2024-01-28 10:28 | P.PNIM_ITS ---
Progress Note: A&P Assessment and Plan (1) Anemia: Code(s): D64.9 - Anemia, unspecified Status: Acute Assessment and Plan: Patient was sent to the ED for chest pain. Work revealed anemia with Hgb 6.9. He has a hx of acute on chronic anemia. Prior hgb runs 7-8 range but did drop to 5.8 in August but was treated with blood transfusion in ED and discharged home. [place] related to occult and sometime gross hematuria. Also consider related to his MM. He was transfused 2U here and repeat Hgb better and now stable in the 9 range. Follow and transfuse as needed (2) Hematuria: Qualifiers: Hematuria type: gross Qualified Code(s): R31.0 - Gross hematuria Code(s): R31.9 - Hematuria, unspecified Status: Acute Assessment and Plan: Patient is s/p cystoscopy with transurethral resection of prostate on 08/25/23. Prior imaging showing multiple scattered sclerotic bone lesions and AP climbed to 760 Patient with gross hematuria 01/26 felt related to prostate CA. Urology consulted and CBI started. CT A/P showing innumerable liver and bone lesions consistent with metastic disease. Appreciate urology input. Discussed with by phone. Hospital course and above findings discussed in details. We talked about options including end-of-life care/hospice care. She was agreeable to talk with hospice. met with [facility] and agreed for hospice care. Will move patient to medical floor with plans to discharge tomorrow on hospice care. (3) Pneumonia: Code(s): J18.9 - Pneumonia, unspecified organism Status: Acute Assessment and Plan: CXR showing right basilar atelectasis vs PNA with pleural effusion. Consider underlying mass. Started on Rocephin and Azithromycin after after cultures obtained BCx NGTD. MRSA nasal swab was positive so Vanco added. UCx pending. Will stop abx now and focus on comfort care (4) Chest pain: Code(s): R07.9 - Chest pain, unspecified Status: Acute Assessment and Plan: Patient with complaint of chest pain. EKG showing NSR, LAFB, anteroseptal infarct with borderline ST-T wave changes. Troponin negative x3. Possibly related to anemia with demand ischemia. Follow (5) Severe protein-calorie malnutrition: Code(s): E43 - Unspecified severe protein-calorie malnutrition Status: Acute Assessment and Plan: Likely secondary to chronic disease. Continue diet as tolerated (6) Type 2 diabetes mellitus: Code(s): E11.9 - Type 2 diabetes mellitus without complications Status: Chronic Assessment and Plan: No recent A1c. Glucose 55 on admission felt related to poor oral intake and continued glipizide use. Glucose treated and now stable. Follow (7) Chronic kidney disease, stage 3: Code(s): N18.30 - Chronic kidney disease, stage 3 unspecified Status: Chronic Assessment and Plan: Cr normal in May but worse in August to 2.4. Better after treatment down to 1.6 Cr 1.8 on admission and unchanged on repeat. Current imaging showing hydronephrosis so probably contributing to his underlying renal dysfunction Comfort measures now (8) Prostate cancer: Onset Date: 07/2018 Code(s): C61 - Malignant neoplasm of prostate Status: Chronic Assessment and Plan: Urology following. Known bone and liver metastasis and felt less likely MM (9) Multiple myeloma: Onset Date: 01/2014 Qualifiers: Multiple myeloma remission status: not in remission Qualified Code(s): C90.00 - Multiple myeloma not having achieved remission Code(s): C90.00 - Multiple myeloma not having achieved remission Status: Acute Subjective Date/time seen: 01/28/24 10:28 Interval history: 83yo male with DM, multiple myeloma, prostate CA, CKD and HTN here for chest pain. Patient agitated last night and received Ativan and Benadryl. Somnolent this morning. He did have BM. Patient unable to provide hx Review of Systems Review of Systems: ROS unobtainable: Yes unobtainable due to mental status Exam Narrative: AF 97.4 117/69 91 22 99% ra Gen - NARD Chest - clear anteriorly but decreased BS in the flanks CV - RRR S1/S2. Tele showing PVCs and brief runs of SVT Abd - Soft, NT/ND, Positive BS - Arnold secured draining clear yellow urine Ext - trace pedal edema Neuro - somnolent but arouses. Skin - Warm and dry. Bilateral LE dried scale Objective Data Vital Signs Vital Signs: Vital Signs - 24 hr 01/27/24 11:56 01/27/24 12:00 01/27/24 12:00 Temperature 98.2 F Pulse Rate 102 H 102 H 88 Respiratory Rate 20 20 Blood Pressure 103/52 L Pulse Oximetry 93 93 Oxygen Delivery Room Air 01/27/24 14:00 01/27/24 15:36 01/27/24 16:00 Temperature 97.4 F L Pulse Rate 88 86 86 Respiratory Rate 20 20 Blood Pressure 100/48 L Pulse Oximetry 93 93 Oxygen Delivery Room Air 01/27/24 16:00 01/27/24 18:00 01/27/24 20:00 Temperature Pulse Rate 87 89 89 Respiratory Rate 20 Blood Pressure Pulse Oximetry 93 Oxygen Delivery Room Air 01/27/24 20:00 01/27/24 21:26 01/27/24 23:43 Temperature 97.7 F 97.7 F Pulse Rate 89 97 95 Respiratory Rate 20 20 Blood Pressure 108/57 L 112/75 Pulse Oximetry 96 96 Oxygen Delivery 01/28/24 00:00 01/28/24 04:00 01/27/24 22:00 Temperature Pulse Rate 95 71 87 Respiratory Rate 20 20 Blood Pressure Pulse Oximetry 96 92 Oxygen Delivery Room Air Room Air 01/28/24 00:00 01/28/24 02:00 01/28/24 04:00 Temperature Pulse Rate 88 89 93 Respiratory Rate Blood Pressure Pulse Oximetry Oxygen Delivery 01/28/24 04:52 01/28/24 06:00 01/28/24 08:00 Temperature 97.7 F 97.4 F L Pulse Rate 71 100 97 Respiratory Rate 20 22 H Blood Pressure 112/62 117/69 Pulse Oximetry 92 99 Oxygen Delivery 01/28/24 08:00 Temperature Pulse Rate 97 Respiratory Rate 22 H Blood Pressure Pulse Oximetry 99 Oxygen Delivery Room Air Intake/Output Intake/Output: Intake & Output 01/25/24 01/26/24 01/27/24 01/28/24 23:59 23:59 23:59 23:59 Intake Total 700 7250 65057 Output Total 9900 93438 Balance 592 -7724 -429 Meds/Results Medications: Active Medications Generic Name Dose Route Start Last Admin Trade Name Freq PRN Reason Stop Dose Admin Acetaminophen 650 mg 01/26/24 17:36 Acetaminophen 325 Mg Tablet PO Q4H PRN Mild Pain (1-3) or Fever Hydrocodone Bitart/Acetaminophen 1 tab 01/26/24 17:36 Hydrocodone/Acetaminophen (*Crx) 5-325 Mg Tablet PO Q4H PRN Pain Rated 4-6 Amlodipine Besylate 10 mg 01/27/24 09:00 01/27/24 09:06 Amlodipine Besylate 10 Mg Tablet PO 10 mg DAILY BUZZ Administration Dextrose 12.5 gm 01/27/24 08:28 Dextrose 50% 25 Gm/50 Ml Syringe IV PUSH PRN PRN Hypoglycemia Protocol Ferrous Sulfate 325 mg 01/27/24 09:00 01/27/24 09:06 Ferrous Sulfate [address] BY MOUTH 325 mg DAILY BUZZ Administration Fluticasone Propionate 1 spray 01/27/24 01:37 Fluticasone Propionate 0.05% Na Spr 16 Gm Btl (*Bkc) NASAL PRN PRN Allergy Symptoms Glucagon 1 mg 01/27/24 08:28 Glucagon For Inj 1 Mg Vial IM PRN PRN Hypoglycemia Protocol Glucose 15 gm 01/27/24 08:28 Glucose Oral Gel 15 Gm Of Glucse In 37.5 Gm Tube PO PRN PRN Hypoglycemia Protocol Hyoscyamine 0.125 mg 01/27/24 01:37 01/27/24 09:05 Hyoscyamine Sulfate 0.125 Mg Tablet SUBLINGUAL 0.125 mg Q6H PRN Administration Bladder Spasm Ceftriaxone Sodium 2 gm in 100 mls @ 200 mls/hr 01/27/24 02:00 01/28/24 02:41 Rocephin 2 Gm/Ns 100 Ml IVPB 200 mls/hr Q24H BUZZ Administration Azithromycin 500 mg in 250 mls @ 250 mls/hr 01/27/24 02:00 01/28/24 04:22 Zithromax IVPB 250 mls/hr Q24H BUZZ Administration Dextrose 1,000 mls @ 100 mls/hr 01/27/24 08:28 Dextrose 5% 1,000 Ml IVPB PRN PRN Hypoglycemia Protocol Vancomycin HCl 1,500 mg in 500 mls @ 250 mls/hr 01/28/24 10:00 01/28/24 08:52 Vancomycin 1,500 Mg/Ns 500 Ml IVPB 01/28/24 11:59 250 mls/hr ONCE ONE Administration Vancomycin HCl 1,250 mg in 250 mls @ 166.667 mls/hr 01/29/24 22:00 Vancomycin 1,250 Mg/Ns 250 Ml IVPB Q36H BUZZ Latanoprost 1 drop 01/27/24 21:00 01/27/24 21:22 Latanoprost 0.005% Op Soln 2.5 Ml Btl EACH EYE 1 drop HS BUZZ Administration Miscellaneous Information 0 each 01/27/24 00:01 Tramadol Duplicate With [place] Prn Pain 4-6 Hold Or D/C One? XX 02/26/24 00:00 CLARIFY BUZZ Morphine Sulfate 2 mg 01/26/24 17:36 Morphine Sulfate (*Crx) 2 Mg/Ml Inj IV PUSH Q2H PRN Pain Rated 7-10 Multi-Ingred Cream/Lotion/Oil/Oint 1 applic 01/28/24 09:00 Eucerin Cream 120 Gm Jar TOPICAL DAILY BUZZ Ondansetron HCl 4 mg 01/26/24 17:36 Ondansetron Inj 4 Mg/2 Ml Vial IV PUSH Q4H PRN Nausea Polyethylene Glycol 17 gm 01/28/24 10:27 Polyethylene Glycol 3350 17 Gm Powd.Pack PO BID PRN constipation Sodium Bicarbonate 325 mg 01/28/24 09:00 Sodium Bicarbonate Tab 325 Mg Tablet PO BID BUZZ Tamsulosin HCl 0.4 mg 01/27/24 09:00 01/27/24 09:06 Tamsulosin Hcl 0.4 Mg Capsule PO 0.4 mg DAILY BUZZ Administration Tramadol HCl 50 mg 01/27/24 01:37 Tramadol Hcl (*Crx) 50 Mg Tablet PO BID PRN pain Radiology Results: ITS Impressions Chest X-Ray 01/26/24 16:14 IMPRESSION: Right basilar atelectasis versus pneumonia with pleural effusion. Follow-up to resolution is advised to exclude underlying mass. Sclerotic changes in the vertebrae. Clinical correlation and further evaluation advised. Abdomen/Pelvis CT 01/27/24 15:58 IMPRESSION: Findings consistent with widely metastatic prostate cancer, within the liver, bone, and possibly within the bladder, as detailed above. Large right and small left-sided pleural effusions Labs Labs: Laboratory Results - last 24 hr 01/27/24 01/27/24 01/27/24 04:16 11:52 16:12 WBC 12.7 H RBC 3.37 L Hgb 9.8 L Hct 31.4 L MCV 93.2 D MCH 29.1 MCHC 31.2 L RDW 19.5 H Plt Count 169 MPV 12.0 H Immature Gran % (Auto) Not Reportable Neut % (Auto) Not Reportable Lymph % (Auto) Not Reportable [place] % (Auto) Not Reportable Eos % (Auto) Not Reportable Baso % (Auto) Not Reportable Lymph # (Auto) Not Reportable [place] # (Auto) Not Reportable Eos # (Auto) Not Reportable Baso # (Auto) Not Reportable Abs Immat Gran (auto) Not Reportable Absolute Neuts (auto) Not Reportable Absolute Nucleated RBC Not Reportable Total Counted 100 Neutrophils % (Manual) 85 H Band Neutrophils % 8 H Lymphocytes % (Manual) 5 L Monocytes % (Manual) 2 L Metamyelocytes % Nucleated RBC % Not Reportable Abs Neuts (Manual) 11.81 H Abs Lymphs (Manual) 0.63 L Abs Monocytes (Manual) 0.25 Atypical Lymphocytes Present Platelet Estimate Adequate Anisocytosis 1+ Ovalocytes 1+ Acanthocytes (Spur) Schistocytes None seen Sodium Potassium Chloride Carbon Dioxide Anion Gap BUN Creatinine Estim Creat Clear Calc Estimated GFR Glucose POC Capillary Glucose 79 87 Calcium Phosphorus Magnesium Total Bilirubin AST ALT Alkaline Phosphatase Total Protein Albumin 01/27/24 01/28/24 01/28/24 21:18 05:23 08:39 WBC 9.3 RBC 3.08 L Hgb 9.2 L Hct 28.4 L MCV 92.2 MCH 29.9 MCHC 32.4 RDW 19.8 H Plt Count 147 L MPV 11.3 H Immature Gran % (Auto) Not Reportable Neut % (Auto) Not Reportable Lymph % (Auto) Not Reportable [place] % (Auto) Not Reportable Eos % (Auto) Not Reportable Baso % (Auto) Not Reportable Lymph # (Auto) Not Reportable [place] # (Auto) Not Reportable Eos # (Auto) Not Reportable Baso # (Auto) Not Reportable Abs Immat Gran (auto) Not Reportable Absolute Neuts (auto) Not Reportable Absolute Nucleated RBC Not Reportable Total Counted 100 Neutrophils % (Manual) 90 H Band Neutrophils % 5 Lymphocytes % (Manual) 3.0 L Monocytes % (Manual) 1 L Metamyelocytes % 1 Nucleated RBC % Not Reportable Abs Neuts (Manual) 8.83 H Abs Lymphs (Manual) 0.27 L Abs Monocytes (Manual) 0.09 L Atypical Lymphocytes Platelet Estimate Slightly decreased Anisocytosis 1+ Ovalocytes 1+ Acanthocytes (Spur) 1+ Schistocytes None seen Sodium 140 Potassium 3.7 Chloride 114 H Carbon Dioxide 18 L Anion Gap 8 BUN 46 H Creatinine 1.70 H Estim Creat Clear Calc 25 Estimated GFR 39 L Glucose 266 H POC Capillary Glucose 76 208 H Calcium 8.0 L Phosphorus 3.8 Magnesium 2.2 Total Bilirubin 0.4 AST 113 H ALT 11 Alkaline Phosphatase 763 H Total Protein 6.0 L Albumin 2.4 L
[2024-01-28 10:43] LABS: MRSA (PCR) DETECTED (NOT DETECTE)
[2024-01-28 11:59] LABS: Glucose Point of Care 172 mg/dl (65-105)
[2024-01-28] MEDS: EUCERIN CREAM 120 GM JAR 1 APPLIC TOPICAL (13:14)
--- NOTE | 2024-01-28 17:36 | PC.NURSE ---
This patient, Hubert Finnegan, was received from IMU on 01/28/24 at 1736. Patient/family oriented to unit policies and routines
--- NOTE | 2024-01-28 17:41 | PC.NURSE ---
This patient, Hubert Finnegan, was transferred to [[id number] ] on 01/28/24 at 1715. Personal belongings sent with patient. Report given to [ RUPERTO Gallego @ [id number]]. Appropriate documentation sent with patient.
[2024-01-28] MEDS: LATANOPROST 0.005% OP SOLN 2.5 ML BTL 1 DROP EACH EYE (21:00)
[2024-01-29 08:00] VITALS: BP 104/62; PULSE 95; RESP 18; TEMP 36.1; O2SAT 96
[2024-01-29 11:18] VITALS: O2SAT 93
--- NOTE | 2024-01-29 11:20 | PC.NURSE ---
This RN, Thelma Mckinney, spoke with provider, Dr. Carrillo, about pt 3-way catheter; provider request for Urology to be contacted; spoke with call center receptionist for Dr. Joyce, awaiting call back to speak with Dr. Joyce at this time.
--- NOTE | 2024-01-29 11:30 | PC.NURSE ---
This RN spoke with Urology, Dr. Cho, about pt's 3-way catheter; provider gave OK for pt to discharge with 3-way catheter in place. Will notify Dr. Carrillo.
--- NOTE | 2024-01-29 12:19 | PM.DS ---
DS: Admitting Diagnosis Discharge Date 01/29/24 Admitting Diagnosis Chest pain DS: Discharge Diagnosis Discharge Diagnosis (1) Anemia: Code(s): D64.9 - Anemia, unspecified Status: Acute (2) Hematuria: Qualifiers: Hematuria type: gross Qualified Code(s): R31.0 - Gross hematuria Code(s): R31.9 - Hematuria, unspecified Status: Acute (3) Pneumonia: Code(s): J18.9 - Pneumonia, unspecified organism Status: Acute (4) Chest pain: Code(s): R07.9 - Chest pain, unspecified Status: Acute (5) Severe protein-calorie malnutrition: Code(s): E43 - Unspecified severe protein-calorie malnutrition Status: Acute (6) Type 2 diabetes mellitus: Code(s): E11.9 - Type 2 diabetes mellitus without complications Status: Chronic (7) Chronic kidney disease, stage 3: Code(s): N18.30 - Chronic kidney disease, stage 3 unspecified Status: Chronic (8) Prostate cancer: Onset Date: 07/2018 Code(s): C61 - Malignant neoplasm of prostate Status: Chronic (9) Multiple myeloma: Onset Date: 01/2014 Qualifiers: Multiple myeloma remission status: not in remission Qualified Code(s): C90.00 - Multiple myeloma not having achieved remission Code(s): C90.00 - Multiple myeloma not having achieved remission Status: Acute DS: Summary Hospital Course Reason for hospitalization: 83yo male with DM, multiple myeloma, prostate CA, CKD and HTN here for chest pain. Please see H&P for details. Hospital Course: Patient was sent to the ED for chest pain. EKG showing NSR, LAFB, anteroseptal infarct with borderline ST-T wave changes. Troponin negative x3. Workup revealed anemia with Hgb 6.9. He has a hx of acute on chronic anemia. Prior hgb runs 7-8 range but did drop to 5.8 in August but was treated with blood transfusion in ED and discharged home. [place] related to occult and sometime gross hematuria. Also consider related to his MM. He was transfused 2U here and repeat Hgb better and now stable in the 9 range. Chest pain related to anemia with demand ischemia. CXR showing right basilar atelectasis vs PNA with pleural effusion. Consider underlying mass. Started on Rocephin and Azithromycin after after cultures obtained. BCx NGTD. MRSA nasal swab was positive so Vanco added. UCx negative. Patient developed hematuria here. Patient is s/p cystoscopy with transurethral resection of prostate on 08/25/23. Prior imaging showing multiple scattered sclerotic bone lesions and AlkPhos climbed to 760. [place] hematuria related to prostate CA. Urology consulted and CBI started. CT A/P showing innumerable liver and bone lesions consistent with metastatic disease. Discussed with by phone. Hospital course and above findings discussed in details. We talked about options including end-of-life care/hospice care. She was agreeable to talk with hospice. met with [facility] and agreed for hospice care. Patient was discharged home on hospice care. Status at Discharge Cognitive/behavioral status at discharge: stable Time Spent with Patient Time attestation: Total time spent providing and/or coordinating discharge services: 35 minutes Time spent: Greater than 30 minutes Exam Narrative: AF 97.0 104/62 95 18 93% ra Gen - NARD Chest - clear anteriorly CV - RRR S1/S2 Abd - Soft, scaphoid - Arnold secured draining clear yellow urine Ext - no pedal edema Neuro - awake and alert Skin - Warm and dry. DS: Data Data Completed and Pending Labs on day of discharge: Preliminary micro results at discharge 01/27/24 04:16 Blood Culture - Preliminary Blood 01/27/24 04:16 Blood Culture - Preliminary Blood Discharge Plan Discharge Attending physician on discharge: Manuel Carrillo Consulting providers: Elsa Joyce Discharging Clinician: Manuel Carrillo Anticipated Discharge Date/Time: 01/29/24 12:32 Patient Disposition: Hospice - Home Activity: as tolerated Diet: as tolerated Discharge Instructions: Home with hospice. Discharge with Arnold catheter in place. Take precautions to avoid falls. Thank you for using [facility] for your health care needs. Patient Instructions: Chest Pain (GEN), How to Stop Smoking (DC) Stand Alone Forms: General Discharge Information Discharge Medications: Continued latanoprost 0.005 % drops 1 drop EACH EYE HS tamsulosin 0.4 mg capsule 0.4 mg PO DAILY fluticasone propionate [Flonase Allergy Relief] 50 mcg/actuation spray,suspension 1 spray intranasal PRN PRN (Reason: Allergy Symptoms) Rx Instructions: administer into each nostril amlodipine 10 mg tablet 10 mg PO DAILY Qty: 30 0RF hyoscyamine sulfate [Anaspaz] 0.125 mg Tablet,Disintegrating 0.125 mg sublingual Q6H PRN (Reason: Bladder Spasm) Qty: 20 0RF polyethylene glycol 3350 [Miralax] 17 gram/dose powder 17 g PO BID PRN (Reason: constipation) Qty: 119 0RF tramadol 50 mg tablet 50 mg PO BID PRN (Reason: pain) Qty: 180 3RF Discontinued cyanocobalamin (vitamin B-12) 1,000 mcg Tablet 1,000 mcg PO DAILY ferrous sulfate [FeroSul] 325 mg (65 mg iron) tablet 325 mg PO DAILY glipizide 5 mg tablet 2.5 mg PO BID Qty: 90 3RF Date of admission: 01/28/24 10:05 Primary Care Provider: Kristina Mccollum Admitting Provider: Nate Aguilar Attending physician on admission: Nate Aguilar Condition: Terminal Hospitalist MIPS Heart Failure (Exclusion) Patient has history of Heart Transplant or Left Ventricular Assistive Device?: No IF YES, STOP HERE Heart Failure (Qualifier) Patient has current or prior documentation of LVEF less than or equal to 40%, or mod/servere depressed LVSF?: No IF NO, STOP HERE
== END 2024-01-29 15:30 | disposition hospice, home (50) | DRG 722 ==
LOC: ANHED 19:21 → ANHIMU 19:39 → ANH3MEDSUR 01-29 12:33 → ANHIMU 02-01 14:34
PROVIDERS: Admitting Provider Family Medicine; Emergency Provider Emergency Medicine; PCP Nurse Practitioner Family; Visit Provider Internal Medicine
DX: C61 Malignant neoplasm of prostate (principal); E43 Unspecified severe protein-calorie malnutrition; J18.9 Pneumonia, unspecified organism; C78.7 Secondary malignant neoplasm of liver and intrahepatic bile duct; C90.00 Multiple myeloma not having achieved remission; I24.89 Other forms of acute ischemic heart disease; Z68.1 Body mass index [BMI] 19.9 or less, adult; D63.1 Anemia in chronic kidney disease; E11.22 Type 2 diabetes mellitus with diabetic chronic kidney disease; E78.2 Mixed hyperlipidemia; I12.9 Hypertensive chronic kidney disease with stage 1 through stage 4 chronic kidney disease, or unspecified chronic kidney disease; M47.26 Other spondylosis with radiculopathy, lumbar region; N18.30 Chronic kidney disease, stage 3 unspecified; N40.1 Benign prostatic hyperplasia with lower urinary tract symptoms; R31.0 Gross hematuria; R33.8 Other retention of urine; Z22.322 Carrier or suspected carrier of Methicillin resistant Staphylococcus aureus; Z79.84 Long term (current) use of oral hypoglycemic drugs; Z87.891 Personal history of nicotine dependence
CPT/HCPCS: 36415; 36430; 71046; 74176; 80053; 81001; 82948; 83690; 83735; 84100; 84484; 85025; 85610; 85730; 86850; 86900; 86901; 86922; 87040; 87086; 87641; 93005; 96365; 96366; 96368; 96375; 99212; 99285; A9270; C1757; G0378; G0463; J0456; J0696; J1200; J2060; J3370; J7050; P9016